=== PATIENT | male | born 1945 | race Caucasian/White ===

== ENCOUNTER → 2016-11-18 | Outpatient (CLI) | payer SELFPAY ==
--- NOTE | 2016-11-19 16:12 | ECHO ---
DATE OF PROCEDURE: 11/18/2016 AGE: 71 GENDER: Male HEIGHT: 72 inches WEIGHT: 205 pounds BODY SURFACE AREA: 2.16 m2 PATIENT LOCATION: Outpatient REFERRING PHYSICIAN: Dorothy Velez INDICATION: Congestive heart failure (CHF). (Unspecified). 2-D MEASUREMENTS: RV: 4.6 cm LV: 5.9 cm Septum: 1.1 cm Posterior wall: 1.1 cm Aortic root: 3.0 cm LA: 4.9 cm LVEF: 10% DOPPLER MEASUREMENTS: AV: 1.06 m/s LVOT: 0.61 m/s LVOT diameter: 2.2 cm MV-E: 102, A: 43, EA ratio: 2.4 Early mitral deceleration time: 151 ms E prime: 3.3, A prime: 4, E/E prime ratio: 35 PV: 0.6 m/s Pulmonary artery acceleration time: 70 ms RVSP: 56-61 mmHg IVC: 3.5 cm COMMENTS: Normal sinus rhythm with frequent isolated PVCs. Subtle interventricular conduction disturbance. Prominently dilated left atrium and at least mild to moderately dilated left ventricle. The right ventricle was at least moderately dilated as was his right atrium. Left ventricle (LV) wall thickness was upper limits of normal. On real-time imaging from the parasternal and apical projections, left ventricular wall motion was markedly hypo- to akinetic. Moderate mitral annular calcification with some thickening of the edges of the mitral leaflets with "low flow" appearance to leaflet motion. No posterior systolic buckling. Three equal size aortic cusps with mildly thickened cusp edges with adequate cusp separation, but premature cusp closure in keeping with reduced forward stroke volume. No apparent intracardiac mass with very small posterior pericardial effusion. Color flow Doppler study taken from the parasternal and apical projections showed trace eccentric aortic and mild eccentric mitral with moderately severe tricuspid insufficiency. Guided continuous wave Doppler of his aortic valve taken from the apical long axis and five chamber projection showed a normal peak systolic velocity against LV outflow tract obstruction. Pulsed and continuous wave Doppler of his LV inflow tract taken from the apical four-chamber projection showed normal diastolic filling velocities against mitral stenosis. There was much more prominent early passive filling pattern associated with an abbreviated early mitral deceleration time in keeping with a restrictive impairment of LV diastolic function. This was further confirmed by pulsed and tissue Doppler of his mitral annulus with estimated mean left atrial pressure of 35 mmHg. Pulsed and continuous wave Doppler of his pulmonary trunk showed a normal peak systolic velocity against RV outflow tract obstruction. His pulmonary artery acceleration time was markedly abbreviated consistent with a significantly increased pulmonary vascular resistance. Guided continuous wave Doppler of his tricuspid valve further allowed our estimation of his right ventricular systolic pressure (at least moderately severe to severely increased). His inferior vena cava was markedly dilated and with absent respiratory collapse in keeping with a central venous pressure of at least 20 mmHg. CONCLUSIONS: Moderately dilated and markedly hypokinetic left ventricle. Moderately dilated left atrium with restrictive impairment of LV diastolic function and prominently elevated mean left atrial pressure. Moderately dilated right heart chambers with Doppler evidence of moderately severe to severe pulmonary hypertension. Prominently dilated inferior vena cava (IVC) with absent respiratory collapse consistent with right heart failure and markedly elevated central venous pressure. Aortic valvular sclerosis without stenosis and only trace insufficiency. Moderate mitral annular calcification and thickening of the mitral leaflets, but no inflow tract obstruction and only mild eccentric insufficiency.
== END ==
LOC: M CARPUL 14:10
PROVIDERS: ATTEND Family Medicine
DX: I50.9 Heart failure, unspecified (principal)

== ENCOUNTER 2016-11-25 09:44 | Inpatient (IN) | payer SELFPAY ==
[~2016-11-25] VITALS: Ht 182.9 cm; Wt 86.6 kg
[2016-11-25] MEDS ORDERED: GLUCAGON FOR INJ 1 MG VIAL (J1610) SC PRN (10:45)
[2016-11-25] MEDS ORDERED: DEXTROSE 50% 50 ML SYRINGE IV PRN (10:45)
[2016-11-25] MEDS ORDERED: GLUCOSE 4 GM CHEW TABLET PO PRN (10:45)
[2016-11-25] MEDS: HumaLOG INSULIN (NovoLOG) PER UNIT SC SCH ×3 (12:00→20:44)
[2016-11-25 12:16] VITALS: BP 114/68
[2016-11-25 12:27] LABS: MEAN CORPUSCULAR HEMOGLOBIN 31.6 pg (27.0-33.0); MEAN CORPUSCULAR HGB CONC 34.3 g/dl (32.0-36.5); MEAN CORPUSCULAR VOLUME 92.1 fl (80.0-96.0); RED CELL DISTRIBUTION WIDTH 14.1 % (11.5-14.5); WHITE BLOOD COUNT 4.2 K/mm3 (4.0-10.0)
[2016-11-25 12:40] LABS: INR 1.07
[2016-11-25] MEDS ORDERED: ASPI1TAB PO (12:42)
[2016-11-25] MEDS ORDERED: LANTINJ4 SC (12:42)
[2016-11-25] MEDS ORDERED: INSUHUMDS SC (12:42)
[2016-11-25] MEDS ORDERED: FURO20TA2 PO (12:42)
[2016-11-25 13:11] LABS: ALBUMIN 3.7 GM/DL (3.2-5.2); ALBUMIN/GLOBULIN RATIO 1.28 (1.00-1.93); ALKALINE PHOSPHATASE 122 U/L (45-117); ALT/SGPT 25 U/L (12-78); ANION GAP 10 MEQ/L (8-16); AST/SGOT 25 U/L (15-37); BILIRUBIN,TOTAL 1.4 MG/DL (0.2-1.0); BLOOD UREA NITROGEN 19 MG/DL (7-18); CALCIUM LEVEL 8.9 MG/DL (8.8-10.2); CARBON DIOXIDE LEVEL 24 MEQ/L (21-32); CHLORIDE LEVEL 105 MEQ/L (98-107); CREATININE FOR GFR 0.82 MG/DL (0.70-1.30); GLOMERULAR FILTRATION RATE > 60.0 (>42); GLUCOSE, FASTING 124 MG/DL (83-110); POTASSIUM SERUM 4.2 MEQ/L (3.5-5.1); SODIUM LEVEL 139 MEQ/L (136-145); TOTAL PROTEIN 6.6 GM/DL (6.4-8.2)
[2016-11-25] MEDS: FUROSEMIDE 40 MG/4 ML VIAL (J1940) IV SCH ×2 (13:36→17:59)
[2016-11-25] MEDS: LISINOPRIL *2.5 MG* TAB PO SCH (13:37)
[2016-11-25] MEDS: ASPIRIN 81 MG ENTERIC TAB PO SCH (13:37)
--- NOTE | 2016-11-25 13:45 | REP ---
Chest x-ray: Two views. History: CHF. Comparison chest x-ray is from October 07, 2016. Findings: Cardiomegaly is again observed unchanged. The aorta is calcific and a little tortuous. Pulmonary vasculature is cephalized. No free pleural effusion is seen but there is some fissural thickening in the minor fissure. Interstitial markings are slightly prominent although improved from the previous study. There are degenerative changes in the thoracic spine. Impression: No focal infiltrate. Cardiomegaly, vascular congestion and fissural thickening consistent with mild CHF. Signed by Froilan Lopez MD 11/25/2016 06:36 P
[2016-11-25] MEDS ORDERED: PREVNAR 13 VACCINE SYRINGE (CPT CODE:90670) IM SCH (14:30)
[2016-11-25] MEDS ORDERED: INFLUENZA VIRUS VACCINE HIGH DOSE 0.5 ML SYRINGE (90662) IM SCH (14:45)
[2016-11-25 16:00] VITALS: BP 115/64
--- NOTE | 2016-11-25 16:18 | CR.PDOC ---
[facility] Cardiology Consultation Date of Consultation 11/25/16 Cadiology Consultation REFERRING PHYSICIAN: Taj Mayes M.D. REASON FOR REFERRAL: Acute on chronic systolic & diastolic heart failure HISTORY OF PRESENT ILLNESS: 71-year-old man with dilated cardiomyopathy, chronic systolic and diastolic heart failure, and frequent PVCs who was admitted today for management of decompensated heart failure. No alcohol. Family history negative for presence of a familial cardiomyopathy. No prior heart attack. No previous cardiac catheterization. He believes he was first diagnosed and placed on treatment for heart failure on or around September-October 2016. Echo-Doppler 11/18/2016 ([facility]) LVEF 10%, LV dilatation (LVed 5.9 cm), severe global hypokinesis. IVS 1.1 cm, PW 1.1 cm Restrictive LV diastolic filling pattern. Moderate LA enlargement 4.9 cm moderately-severe elevated RASP 56-61 mmHg. Moderate RV & RA dilatation. IVC plethora 3.5 cm; increased CVP Mild aortic valve sclerosis; trace AR. Moderate MAC; mild MR. Cardiovascular Symptoms Shortness of breath: Patient reports the onset of exertional shortness of breath approximately one year ago which at first was occurring only with above ordinary physical exertion. He reports that exertional shortness of breath has been progressively worse since September 2016 to the point now of dyspnea with ascending 1 flight of stairs or attempting to walk on the level at anything more than a slow walk. No orthopnea or paroxysmal nocturnal dyspnea. Edema: Patient reports onset of edema in both legs beginning sometime September 2016. No chest, neck, upper extremity, or epigastric pain, pressure, tightness, heaviness, squeezing, or burning with or without exertion. No presyncope or syncope. No palpitations. No embolic events. No claudication. PAST MEDICAL: Dilated Cardiomyopathy Systolic + diastolic heart failure Frequent PVCs Diabetes type 2 SURGICAL HISTORY: Appendectomy. FAMILY HISTORY: Father at 84 years old second ray to [place]. Mother at age 8383 years old. She had diabetes. Sons with tetralogy of [place]ot. 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 No alcohol. Lifetime nonsmoker. No illicit drugs. REVIEW OF SYSTEMS: As per HPI. Nonproductive cough. All other 10 point review of systems questions negative. PHYSICAL EXAMINATION: VITAL SIGNS: Please see below. GENERAL APPEARANCE: - Overweight. Not in any respiratory or psychologic distress. No gross head, facial, or skeletal deformities. EYES: No conjunctival pallor, scleral icterus or xanthelasma. ENT/Mouth: - Edentulous NECK: Jugular Venous Pulsations: 20 cm (to the angle of the jaw with the patient sitting up at 90; presence of CV waves). Trachea midline. No palpable thyroid. EXTREMITIES: No clubbing, nailbed cyanosis, or splinter hemorrhages. SKIN: No skin lesions. No skin pallor or icterus. NEUROLOGIC/PSYCHOLOGIC: Oriented to person, place, and time. Mood and affect normal. Speech normal. MUSCULOSKELETAL: Curvature of the spine normal. Gross motor strength and tone normal. No muscle atrophy, fasciculations, or tremors. - Gait normal. THORAX: Breathing appears unlabored with normal expansion. No dullness to percussion. Normal breath sounds. No crackles, wheezes, or prolonged expiration. HEART: No anterior chest scars or devices. No palpable apex beat. No left parasternal lifts, heaves, or thrills. S1 normal. S2 with increased P2 component. Presence of an S3 gallop and an S4 gallop. No systolic clicks, opening snap, pericardial knock, or pericardial friction rubs No murmurs. ARTERIAL PULSES: Carotids normal in volume and contour and without bruits. No palpable abdominal aorta. Femoral pulses 2+/2 Pedal pulses 2+/2 LOWER EXTREMITY EDEMA: -2-4 mm left & right mid & distal pitting edema. ABDOMEN: Abdomen soft nontender with normal bowel sounds. No abdominal bruits. No hepatomegaly, splenomegaly, or abdominal masses. - Liver span (right midclavicular line): 12 cm - Stool for occult blood not indicated. ALLERGIES: Please see below. HOME MEDICATIONS: Please see below. CURRENT MEDICATIONS: Please see below. Electrocardiogram: ECG 11/25/2016 at 12:40 PM. Sinus rhythm, 88 BPM, first- degree AV block [ID 228 ms], low precordial voltages, poor R-wave progression, left atrial abnormality, moderate nonspecific T-wave abnormalities, consider apical myocardial ischemia. Abnormal ECG. No prior ECG available for comparison. LABORATORY DATA: Please see below. IMAGING: I have independently visualized the patient's PA and lateral chest x-ray 2016 at 1:00 PM. Cardio megaly. Aortic calcification. Mildly tortuous thoracic aorta. Pulmonary vascular redistribution present. No pleural effusions. Increased interstitial markings. Enlarged pulmonary arteries. Some increased thickening of the minor fissure. ASSESSMENT/PLAN: 1. Dilated cardiomyopathy. Echocardiogram 11/18/2016 showed mild dilatation of left ventricle at end diastole (5.9 Jamison) with severe global LV hypokinesis with LVEF estimated to be 10%. Presence of restrictive LV diastolic filling pattern. Presence of moderately severe elevation of RV systolic pressure. Etiology of this patient's dilated cardiomyopathy is not known however the main differential diagnosis would include, but not all inclusive: Nonischemic dilated cardiomyopathy (idiopathic, mono genetic, post viral) versus ischemic cardiomyopathy. No history of alcohol use. No systemic hypertension. No family history of cardiomyopathy. He currently has acute on chronic decompensated systolic & diastolic heart failure (NYHA functional class III). Further complicating the heart failure situation is presence of moderately-severe pulmonary artery hypertension. Renal function is normal. Once this patient is stable as an outpatient, the plan will be to arrange for elective outpatient either diagnostic coronary angiography in [place] or stress SPECT myocardial perfusion imaging; this was explained to the patient. He may very well have associated obstructive sleep apnea &/or central sleep apnea; therefore, I will order nocturnal oximetry while he is an inpatient. Agree with addition of lisinopril. Agree with IV furosemide. I will introduce carvedilol beginning at 3.125 mg twice a day. I will also introduce spironolactone at 25 mg daily. Due to lack of health insurance at this time is unlikely that he will be able to purchase Entresto. Cardiac rehabilitation will be consulted. In addition to a DASH diet I will place him on a 2.5 g sodium restriction, 1800 mL per day oral fluid restriction, & carbohydrate consistent. If this patient is found to have an ischemic dilated cardiomyopathy then he will qualify for a single chamber ICD. If he is found to have a nonischemic dilated cardiopathy, then he will qualify for a single chamber ICD if LVEF remains at or below 35% and he remains NYHA functional class 2-3 after 3 months of maximal CHF therapy. 2. Heart failure (systolic & diastolic, acute on chronic. As per problem #1. 3. Frequent PVCs. No palpitations. Potassium normal. Serum magnesium will be ordered. 4. First-degree AV block (mild). Will continue to observe on telemetry as he is placed on a beta melvin. 5. Abnormal ECG. ECG as described above. 6. Secondary probably artery hypertension. Most likely secondary to left heart failure. He may have obstructive sleep apnea and/or central sleep apnea. Nocturnal oximetry will be obtained while he is in hospital. Thank you kindly for asking me to participate in the care of your patient. Vital Signs/I&O Height (in): 72 Weight (kg): 90.5 BMI (kg): 27.1 Laboratory Data Labs 24H Laboratory Tests 2 11/25/16 12:07: Bedside Glucose (Misc Panel) 136H 11/25/16 12:16: Activated Partial Thromboplast Time 31.6, B-Type Natriuretic Peptide 2070H, Prothromb Time International Ratio 1.07, Prothrombin Time 14.0 CBC/BMP Laboratory Tests 11/25/16 12:16 Red Blood Count 4.62, Mean Corpuscular Volume 92.1, Mean Corpuscular Hemoglobin 31.6, Mean Corpuscular Hemoglobin Concent 34.3, Red Cell Distribution Width 14.1 FSBS Laboratory Tests Test 11/25/16 12:07 Range/Units Bedside Glucose (Misc Panel) 136 83-110 MG/DL Microbiology Microbiology 11/25/16 MRSA Screen, Received Pending Home Medications Scheduled Aspirin (Aspirin 81) 81 Mg Tab 81 MG PO QPM (Reported) Furosemide (Furosemide) 20 Mg Tab 20 MG PO QPM (Reported) Insulin Glargine (Lantus Solostar) 100 Unit/Ml Inj 20 UNITS SC QHS (Reported) SEE COMMENT Insulin Human Lispro (Humalog) 1 Units/0.01 Ml Inj 0 SC AC (Reported) PER SLIDING SCALE Current Medications Current Medications Aspirin (Ecotrin) 81 mg QAM PO ; Start 11/25/16 at 09:00; Stop 12/25/16 at 08:59 Dextrose (Dextrose 50%) 25 ml ASDIRECTED PRN IV SEE LABEL COMMENTS; Start 11/25 at 10:45; Stop 12/25/16 at 10:44 Enoxaparin Sodium (Lovenox) 40 mg DAILY SC ; Start 11/26/16 at 09:00; Stop 12/01 at 08:59; Status UNV Furosemide (Lasix) 40 mg Q6H IV ; Start 11/25/16 at 12:00; Stop 12/25/16 at 11: 59 Glucagon (Glucagon) 1 mg ASDIRECTED PRN SC SEE LABEL COMMENTS; Start 11/25/16 at 10:45; Stop 12/25/16 at 10:44 Glucose (Glucose) 16 GM ASDIRECTED PRN PO SEE LABEL COMMENTS; Start 11/25/16 at 10:45; Stop 12/25/16 at 10:44 Home Med (Med Rec Complete!) ASDIRECTED XX ; Start 11/25/16 at 12:45; Stop at 12:47; Status DC Insulin Detemir (Levemir Insulin) 10 units QHS SC ; Start 11/25/16 at 21:00; Stop 12/25/16 at 20:59 Insulin Human Lispro (HumaLOG INSULIN) SEE PROTOCOL TABLE AC SC ; Start at 12:00; Stop 12/25/16 at 11:59 Insulin Human Lispro (HumaLOG INSULIN) SEE PROTOCOL TABLE QHS SC ; Start at 21:00; Stop 12/25/16 at 20:59 Lisinopril (Prinivil) 2.5 mg QAM PO ; Start 11/25/16 at 09:00; Stop 12/25/16 at 08:59 Allergies Allergies: Coded Allergies: Statins (Unverified Allergy, Unknown, CRAMPS, 11/25/16) Ever Ambrosio Nov 25, 2016 13:27
[2016-11-25 17:14] LABS: MAGNESIUM LEVEL 1.9 MG/DL (1.8-2.4)
[2016-11-25] MEDS: ENOXAPARIN 40 MG/0.4 ML SYRINGE (J1650) SC SCH (17:59)
[2016-11-25] MEDS: SPIRONOLACTONE 25 MG TAB PO SCH (17:59)
--- NOTE | 2016-11-25 18:51 | ECGEPIP ---
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 LEFT VENTRICULAR HYPERTROPHY LOW QRS VOLTAGE IN EXTREMITY LEADS MODERATE T-WAVE ABNORMALITY, CONSIDER LATERAL ISCHEMIA NO PRIOR TRACING IN THE SYSTEM Electronically Signed On 11-25-2016 18:51:01 EST by Alan Wang
[2016-11-25 20:00] VITALS: BP 113/68
[2016-11-25] MEDS: LEVEMIR (INSULIN DETEMIR) 1 UNITS/0.01ML SC SCH (20:56)
[2016-11-25] MEDS: CARVedilol 3.125 MG TAB PO SCH (20:57)
[2016-11-26] VITALS: BP 100/60
[2016-11-26] MEDS: FUROSEMIDE 40 MG/4 ML VIAL (J1940) IV SCH ×2 (00:18→05:28)
[2016-11-26 04:00] VITALS: BP 109/61
[2016-11-26 04:55] LABS: MEAN CORPUSCULAR HEMOGLOBIN 30.9 pg (27.0-33.0); MEAN CORPUSCULAR HGB CONC 32.9 g/dl (32.0-36.5); MEAN CORPUSCULAR VOLUME 93.8 fl (80.0-96.0); RED CELL DISTRIBUTION WIDTH 15.1 % (11.5-14.5); WHITE BLOOD COUNT 4.1 K/mm3 (4.0-10.0)
[2016-11-26 05:14] LABS: ANION GAP 8 MEQ/L (8-16); BLOOD UREA NITROGEN 18 MG/DL (7-18); CALCIUM LEVEL 8.9 MG/DL (8.8-10.2); CARBON DIOXIDE LEVEL 30 MEQ/L (21-32); CHLORIDE LEVEL 102 MEQ/L (98-107); CREATININE FOR GFR 0.89 MG/DL (0.70-1.30); GLOMERULAR FILTRATION RATE > 60.0 (>42); GLUCOSE, FASTING 87 MG/DL (83-110); SODIUM LEVEL 140 MEQ/L (136-145)
[2016-11-26] MEDS: HumaLOG INSULIN (NovoLOG) PER UNIT SC SCH ×4 (07:30→20:09)
[2016-11-26 08:00] VITALS: BP 103/60
[2016-11-26] MEDS: ASPIRIN 81 MG ENTERIC TAB PO SCH (08:29)
[2016-11-26] MEDS: CARVedilol 3.125 MG TAB PO SCH ×2 (08:29→21:05)
[2016-11-26] MEDS: LISINOPRIL *2.5 MG* TAB PO SCH (08:29)
[2016-11-26] MEDS: SPIRONOLACTONE 25 MG TAB PO SCH (08:30)
[2016-11-26] MEDS ORDERED: FUROSEMIDE 40 MG TAB PO SCH (09:00)
--- NOTE | 2016-11-26 09:53 | IPNPDOC ---
Assessment/Plan Date Seen The patient was seen on 11/26/16. Problems Problems: (1) Systolic CHF, acute on chronic Status: Acute Response to Treatment: Improving Discussed With: Patient Problem Specific Plan: Consult Specialist, Monitor Clinically, Repeat Labs Problem Text: Pt appears to be improving. Will change from IV lasix to po, he is on aldactone 25 mg as well. NATASHA low dose. Will obtain PT eval, plan for d/ c in AM. (2) DM2 (diabetes mellitus, type 2) Status: Chronic Response to Treatment: Stable Problem Specific Plan: Monitor Clinically Problem Text: Cont home meds. Plan / VTE VTE Prophylaxis Ordered?: Yes Subjective Review of Systems CC/HPI Pt is feeling better this morning, although he state that he hasn't really done much and he was relatively asymptomatic at rest previuosly General: Denies: Fatigue Constitutional: Denies: Chills, Fever ENT: Denies: Head Aches Pulmonary: Denies: Cough, Dyspnea Cardiovascular: Denies: Chest Pain, Palpitations Gastrointestinal: Denies: Diarrhea, Nausea, Vomiting Neurological: Denies: Weakness Psych: Reports: Mood Normal Objective Physical Examination General Exam: Positive: Alert, No Acute Distress ENT Exam: Positive: Mucous membr. moist/pink Neck Exam: Positive: Supple Chest Exam: Positive: Normal air movement, Other (few bibasilar crackles) Heart Exam: Positive: Normal S1, Normal S2, Rate Normal Abdomen Exam: Positive: Normal bowel sounds, Soft, Negative: Tenderness Extremity Exam: Negative: Edema Vital Signs/I&O Vital Signs Date Time Temp Pulse Resp B/P Pulse Ox O2 Delivery O2 Flow Rate FiO2 11/26/16 08:00 96.7 64 18 103/60 95 Room Air I&O- Last 24 Hours up to 6 AM 11/26/16 06:00 Intake Total 780 ml Output Total 4750 ml Balance -3970 ml Laboratory Data Labs 24H Laboratory Tests 2 11/25/16 12:07: Bedside Glucose (Misc Panel) 136H 11/25/16 12:16: Activated Partial Thromboplast Time 31.6, Blood Urea Nitrogen 19H, Creatinine 0.82, Sodium Level 139, Potassium Level 4.2, Chloride Level 105, Carbon Dioxide Level 24, Calcium Level 8.9, Aspartate Amino Transf (AST/SGOT) 25, Alanine Aminotransferase (ALT/SGPT) 25, Alkaline Phosphatase 122H, Total Bilirubin 1.4H , Total Protein 6.6, Albumin 3.7, Albumin/Globulin Ratio 1.28, Anion Gap 10, B- Type Natriuretic Peptide 2070H, Glomerular Filtration Rate > 60.0, Magnesium Level 1.9, Prothromb Time International Ratio 1.07, Prothrombin Time 14.0, Thyroid Stimulating Hormone (TSH) 2.240 11/25/16 16:47: Bedside Glucose (Misc Panel) 157H 11/25/16 20:28: Bedside Glucose (Misc Panel) 119H 11/26/16 04:36: Anion Gap 8, Blood Urea Nitrogen 18, Creatinine 0.89, Sodium Level 140, Potassium Level 4.0, Chloride Level 102, Carbon Dioxide Level 30, Calcium Level 8.9, Glomerular Filtration Rate > 60.0 11/26/16 08:06: Bedside Glucose (Misc Panel) 87 CBC/BMP Laboratory Tests 11/25/16 12:16 Calcium Level 8.9, Aspartate Amino Transf (AST/SGOT) 25, Alanine Aminotransferase (ALT/SGPT) 25, Alkaline Phosphatase 122 H, Total Bilirubin 1.4 H, Total Protein 6.6, Albumin 3.7, Red Blood Count 4.62, Mean Corpuscular Volume 92.1, Mean Corpuscular Hemoglobin 31.6, Mean Corpuscular Hemoglobin Concent 34.3, Red Cell Distribution Width 14.1 11/26/16 04:36 Calcium Level 8.9, Red Blood Count 4.79, Mean Corpuscular Volume 93.8, Mean Corpuscular Hemoglobin 30.9, Mean Corpuscular Hemoglobin Concent 32.9, Red Cell Distribution Width 15.1 H FSBS Laboratory Tests Test 11/25/16 12:07 11/25/16 16:47 11/25/16 20:28 11/26/16 08:06 Range/Units Bedside Glucose (Misc Panel) 136 157 119 87 83-110 MG/DL Microbiology Microbiology 11/25/16 MRSA Screen, Received Pending ASTER CORONA PA-C Nov 26, 2016 09:53
[2016-11-26 13:20] VITALS: BP 105/63
[2016-11-26 14:00] VITALS: BP 122/62
--- NOTE | 2016-11-26 15:15 | IPN ---
DATE: 11/26/2016 TIME OF SERVICE: 2:50 p.m. SUBJECTIVE: The patient reports he has been able to ambulate in the hallways without any dyspnea walking at a normal pace. No orthopnea or paroxysmal nocturnal dyspnea (PND). He reports his leg swelling, although still present, has gone down considerably since admission. No chest pain or chest discomfort with or without activity. No palpitations. No lightheadedness or dizziness. He reports feeling well and has no additional voiced complaints. PHYSICAL EXAMINATION: Weight 86.6 kg. Temperature 96.0, pulse 78 (regular), respiratory rate 18, blood pressure 122/62, oxygen saturation 94% on room air. Input and output for the available observation time from 11/25/2016 shows the patient to be net negative 1510 mL. So far today the patient is strongly net negative. Jugular venous pulsations were at 8 cm. First and second heart sounds showed accentuated P2, faint S3, no S4. No murmurs appreciated. Respiratory expansion and effort was good. No crackles or wheezes. Abdomen was soft, nontender with normal bowel sounds. 1+ to 2+ pitting edema was present at mid and distal tibial level bilaterally. Speech was normal. Mood and affect were normal. LABORATORY DATA: 11/26/2016, showed sodium 140, potassium 4.0, chloride 102, CO2 30, creatinine 0.89, BUN 18, estimated GFR greater than 60. ASSESSMENT AND PLAN: 1. Dilated cardiomyopathy. Planned for elective stress SPECT myocardial perfusion imaging study or diagnostic coronary angiography as an outpatient to differentiate between nonischemic cardiomyopathy versus ischemic cardiomyopathy. With regard to consideration of a single chamber implantable cardioverter defibrillator (ICD), this will depend on whether or not he has an ischemic or nonischemic cardiomyopathy. This is discussed in detail in my consult. Heart failure management as described below. 2. Heart failure (systolic and diastolic), acute on chronic. Patient is currently [place] Heart Association (NYHA) Functional Class II. He is mildly decompensated and has improved tremendously since admission. His blood pressure is controlled. His renal function remains normal and he is generating an excellent net negative fluid balance. He was switched from intravenous (IV) furosemide to oral furosemide 40 mg once daily today. At this point I recommend switching his furosemide 40 mg once daily to torsemide 20 mg daily because this has a longer half-life and has consistent 100% bioavailability and less issues with endocardial fibrosis in comparison to furosemide. Continue carvedilol 3.125 mg twice a day, lisinopril 2.5 mg daily, spironolactone 25 mg daily. 3. Premature ventricular contractions (PVCs). Potassium and magnesium levels normal. Asymptomatic. 4. First degree atrioventricular (AV) block. Stable. 5. Abnormally ECG. Stable. 6. Secondary pulmonary hypertension. Right heart failure is improving. Continue heart failure management as above. Awaiting results of nocturnal oximetry which has been ordered.
[2016-11-26] MEDS: ENOXAPARIN 40 MG/0.4 ML SYRINGE (J1650) SC SCH (18:49)
[2016-11-26] MEDS: LEVEMIR (INSULIN DETEMIR) 1 UNITS/0.01ML SC SCH (21:10)
--- NOTE | 2016-11-26 21:47 | NOCOX ---
DATE OF PROCEDURE: 11/25/2015 INTERPRETATION: Recording nocturnal oximetry was performed on room air. A total of 6 hours and 29 minutes of data was reviewed. Mean oxygen saturation for this study was 94% with a minimum recorded value of 86%. He spent 4.8% of this time with saturations less than 90% but only 1% of his time with saturations less than 88%. His longest continuous time with saturations less than or equal to 88% was 2 minutes and 58 seconds. In reviewing the flow waveform, there is significant fluctuations suggestive of sleep disordered breathing. IMPRESSION: 1. Acceptable nocturnal saturation on room air. 2. SpO2 fluctuations suggestive of sleep disordered breathing. Clinical correlation will be necessary.
[2016-11-26 22:00] VITALS: BP 97/56
[2016-11-27 06:00] VITALS: BP 107/63
[2016-11-27 06:44] LABS: MEAN CORPUSCULAR HEMOGLOBIN 30.8 pg (27.0-33.0); MEAN CORPUSCULAR HGB CONC 33.7 g/dl (32.0-36.5); MEAN CORPUSCULAR VOLUME 91.4 fl (80.0-96.0); RED CELL DISTRIBUTION WIDTH 14.8 % (11.5-14.5); WHITE BLOOD COUNT 3.5 K/mm3 (4.0-10.0)
[2016-11-27 06:58] LABS: ANION GAP 9 MEQ/L (8-16); BLOOD UREA NITROGEN 25 MG/DL (7-18); CALCIUM LEVEL 9.1 MG/DL (8.8-10.2); CARBON DIOXIDE LEVEL 29 MEQ/L (21-32); CHLORIDE LEVEL 103 MEQ/L (98-107); CREATININE FOR GFR 0.87 MG/DL (0.70-1.30); GLOMERULAR FILTRATION RATE > 60.0 (>42); GLUCOSE, FASTING 71 MG/DL (83-110); POTASSIUM SERUM 4.1 MEQ/L (3.5-5.1); SODIUM LEVEL 141 MEQ/L (136-145)
[2016-11-27] MEDS: HumaLOG INSULIN (NovoLOG) PER UNIT SC SCH ×2 (07:30→12:00)
[2016-11-27 08:47] VITALS: BP 107/63
[2016-11-27] MEDS: ASPIRIN 81 MG ENTERIC TAB PO SCH (08:47)
[2016-11-27] MEDS: LISINOPRIL *2.5 MG* TAB PO SCH (08:47)
[2016-11-27] MEDS: SPIRONOLACTONE 25 MG TAB PO SCH (08:47)
[2016-11-27] MEDS: CARVedilol 3.125 MG TAB PO SCH (08:47)
[2016-11-27] MEDS ORDERED: TORSEMIDE 20 MG TAB PO SCH (09:00)
[2016-11-27] MEDS ORDERED: CARV3.12 PO (11:50)
[2016-11-27] MEDS ORDERED: ALDA25TA2 PO (11:50)
[2016-11-27] MEDS ORDERED: DEMA20TA6 PO (11:50)
[2016-11-27] MEDS ORDERED: LISI25TA PO (11:50)
--- NOTE | 2016-11-27 16:26 | DSES ---
DATE OF ADMISSION: 11/25/2016 DATE OF DISCHARGE: 11/27/2016 PRIMARY CARE PHYSICIAN: Anita Mayes HISTORY: This is a 71-year-old male patient of Anita Pittman who was admitted secondary to increasing dyspnea on exertion with bilateral lower extremity edema. He had an echocardiogram one the week prior with severe systolic congestive heart failure with an ejection fraction (EF) of 10%. He has a history of hypertension but had declined treatment in the past. He followed a [id number] diet at home. During his hospitalization he has remained medically stable. He adequately diuresed with intravenous (IV) Lasix for a total output of 4 liters during his hospitalization. His renal function remained stable. Dr. Ambrosio was consulted. He started the patient on 2.5 mg of lisinopril, Coreg 3.125 mg. I had transitioned the patient from IV Lasix to oral Lasix. He discontinued this and changed him to Demadex 20 mg daily. He also initiated spironolactone 25 mg daily. At this time, the patient feels eager to return home. His symptoms have resolved. His is at bedside. She feels comfortable with him returning home. He has been ambulating in the halls. His BNP has gone from 0 to 1000. DISCHARGE DIAGNOSES: 1. Acute on chronic systolic congestive heart failure with an ejection fraction of 10%. 2. Dilated cardiomyopathy. 3. Diabetes mellitus, type 2. DISCHARGE MEDICATIONS: - Coreg 3.125 mg by mouth by mouth twice a day - lisinopril 2.5 mg by mouth daily - spironolactone 25 mg by mouth daily - torsemide 20 mg by mouth daily - aspirin 81 mg by mouth daily - Lantus 20 units by mouth at bedtime DISCHARGE PLAN: Followup with Dr. Ambrosio in 1 week. Followup with Anita Mayes in 1 week. Activity should be as tolerated. Diet should be no added salt, 1800 mL fluid restriction.
== END 2016-11-27 13:09 | disposition home or self-care (01) | DRG 194 ==
LOC: M ICU 11:47 → M MSPAV 11-26 13:15
PROVIDERS: ADMIT Family Medicine; ATTEND Family Medicine
DX: I50.23 Acute on chronic systolic (congestive) heart failure (principal); I44.1 Atrioventricular block, second degree; I27.2 Other secondary pulmonary hypertension; E11.9 Type 2 diabetes mellitus without complications; I25.5 Ischemic cardiomyopathy; Z79.899 Other long term (current) drug therapy; Z79.82 Long term (current) use of aspirin

== ENCOUNTER → 2016-12-02 | Outpatient (REF) | payer OTHER ==
[~2016-12-02] MED LIST: ALDA25TA2 PO; ASPI1TAB PO; CARV3.12 PO; DEMA20TA6 PO; FURO20TA2 PO; INSUHUMDS SC; LANTINJ4 SC; LISI25TA PO
[2016-12-02 12:38] LABS: MEAN CORPUSCULAR HEMOGLOBIN 30.4 pg (27.0-33.0); MEAN CORPUSCULAR HGB CONC 33.4 g/dl (32.0-36.5); RED CELL DISTRIBUTION WIDTH 13.6 % (11.5-14.5); WHITE BLOOD COUNT 4.4 K/mm3 (4.0-10.0)
[2016-12-02 12:57] LABS: ANION GAP 8 MEQ/L (8-16); BLOOD UREA NITROGEN 33 MG/DL (7-18); CALCIUM LEVEL 9.3 MG/DL (8.8-10.2); CARBON DIOXIDE LEVEL 29 MEQ/L (21-32); CHLORIDE LEVEL 100 MEQ/L (98-107); CREATININE FOR GFR 0.99 MG/DL (0.70-1.30); GLOMERULAR FILTRATION RATE > 60.0 (>42); GLUCOSE, FASTING 72 MG/DL (83-110); POTASSIUM SERUM 4.5 MEQ/L (3.5-5.1); SODIUM LEVEL 137 MEQ/L (136-145)
== END ==
LOC: M SFHCADAM 09:05
PROVIDERS: ATTEND Family Medicine
DX: I50.20 Unspecified systolic (congestive) heart failure (principal)

== ENCOUNTER 2016-12-11 08:32 | Emergency (ER) | payer OTHER, SELFPAY ==
[2016-12-11] MEDS ORDERED: ASPIRIN 81 MG CHEW TABLET As Ordered ONE (08:57)
[2016-12-11 09:02] LABS: INR 1.03
[2016-12-11 09:17] LABS: EOS # 0.3 K/mm3 (0.0-0.50); EOS % 5.9 % (0.0-3.0); LARGE UNSTAINED CELL # 0.2 K/mm3 (0.0-0.4); LARGE UNSTAINED CELL % 4.6 % (0.0-4.0); LYMPH # 1.4 K/mm3 (1.5-4.5); LYMPH % 31.5 % (24.0-44.0); MEAN CORPUSCULAR HEMOGLOBIN 29.6 pg (27.0-33.0); MEAN CORPUSCULAR HGB CONC 32.1 g/dl (32.0-36.5); MEAN CORPUSCULAR VOLUME 92.1 fl (80.0-96.0); MONO # 0.3 K/mm3 (0.0-0.8); MONO % 7.5 % (0.0-5.0); NEUTROPHILS # 2.2 K/mm3 (1.8-7.7); NEUTROPHILS % 49.5 % (36.0-66.0); PLATELET COUNT, AUTOMATED 136 k/mm3 (150-450); RED CELL DISTRIBUTION WIDTH 13.1 % (11.5-14.5); WHITE BLOOD COUNT 4.4 K/mm3 (4.0-10.0)
[2016-12-11 09:21] LABS: ANION GAP 10 MEQ/L (8-16); BLOOD UREA NITROGEN 38 MG/DL (7-18); CALCIUM LEVEL 9.5 MG/DL (8.8-10.2); CARBON DIOXIDE LEVEL 28 MEQ/L (21-32); CHLORIDE LEVEL 96 MEQ/L (98-107); CREATININE FOR GFR 1.13 MG/DL (0.70-1.30); GLOMERULAR FILTRATION RATE > 60.0 (>42); GLUCOSE, FASTING 352 MG/DL (83-110); POTASSIUM SERUM 4.9 MEQ/L (3.5-5.1); SODIUM LEVEL 134 MEQ/L (136-145)
--- NOTE | 2016-12-11 09:34 | REP ---
Chest x-ray: Sitting AP view portably obtained. History: Chest pain. Comparison study November 25, 2016. Findings: There is moderate cardiomegaly. A diffuse interstitial pulmonary edema pattern is seen. There is fissural thickening in the minor fissure. No free pleural effusion is appreciated. No focal infiltrate is seen. The aorta is tortuous. There are degenerative changes in the thoracic spine. Impression: CHF pattern with moderate interstitial pulmonary edema. Signed by Froilan Lopez MD 12/11/2016 10:24 A
[2016-12-11] MEDS ORDERED: ISOVUE-370 76% 100ML VIAL (Q9967) As Ordered ONE (10:35)
[2016-12-11 11:59] LABS: MAGNESIUM LEVEL 2.1 MG/DL (1.8-2.4); PHOSPHORUS LEVEL 2.3 MG/DL (2.5-4.9)
--- NOTE | 2016-12-11 12:29 | REP ---
CT PULMONARY ANGIOGRAM, WITH IV CONTRAST HISTORY: Chest pain. COMPARISON STUDIES: Comparison is made with today's chest x-ray. No prior CTs. CONTRAST DOSE: 75 mL of Isovue-[address] TECHNIQUE: Helical scanning is acquired and overlapping 1.5 mm and contiguous 3 mm axial images are reformatted. In addition, a 3D work station is deployed to generate thick slab maximum intensity projection images in sagittal and coronal imaging projections. I am informed by the technologist that there was a brief delay in scan initiation after contrast, due to technical difficulty. CT PULMONARY ANGIOGRAPHIC FINDINGS: There is fair opacification of the pulmonary arterial tree. There is no CT evidence of pulmonary embolism. The study is felt to be diagnostic. There is also excellent opacification of the thoracic aorta which enhances homogeneously and is normal in caliber. Vascular calcification is noted. There is left coronary artery and right coronary artery vascular calcification as well. Cardiomegaly is observed. There is a small quantity of right pleural fluid. There are granulomatous calcifications in the right middle lobe. Granulomatous lymph node calcifications are seen in the subcarinal region. There are scattered right hilar and pretracheal lymph nodes. The largest of these is a triangular-shaped lymph node in the precarinal region measuring 1.5 x 1.4 cm. A granulomatous lymph node calcification is seen in the left hilus is well. There is a left lower lobe pulmonary granuloma. Some fissural thickening is seen in the major fissure on the right. There is interstitial edema pattern in the bases, right more so than left with Sushma B lines. No pulmonary mass lesion is seen. The visualized upper abdominal structures are unremarkable. No bony destructive lesion is seen. IMPRESSION: 1. No CT evidence of pulmonary embolism. 2. Cardiomegaly, small right pleural effusion, and mild interstitial edema pattern consistent with CHF. 3. Coronary artery vascular calcification. 4. Old granulomatous calcific residuals. 5. No other significant abnormality. Signed by Froilan Lopez MD 12/11/2016 12:53 P
[2016-12-11] MEDS ORDERED: CLOPIDOGREL 300 MG TAB (PLAVIX) As Ordered ONE (12:39)
[2016-12-11] MEDS ORDERED: HEPARIN SOD (PORCINE) 5000 UNITS/ML VIAL As Ordered ONE (12:39)
[2016-12-11] MEDS ORDERED: HEPARIN 25,000 UNITS/250 ML D5W BAG (100 UNITS/ML) As Ordered ONE (12:40)
--- NOTE | 2016-12-11 13:16 | EDDOCDS ---
Physician Documentation [facility] Name: García Peres Age: 71 yrs Sex: Male : 1945 Arrival Date: 12/11/2016 Time: 08:32 Bed 15 Private MD: Taj Mayes MD Disposition: 12/11/16 12:20 Transfer ordered to [facility]. Diagnosis are Non-ST elevation (NSTEMI) myocardial infarction, Chest pain, unspecified. - Reason for transfer: Higher level of care. - Accepting physician is Dr. Ching. - Condition is Critical. - Problem is new. - Symptoms are unchanged. Historical: - Allergies: no known allergies; - Home Meds: 1. torsemide Unknown oral 2. spironolactone Unknown Oral 3. carvedilol Unknown oral 4. Prinivil Unknown Oral 5. metoprolol tartrate Unknown Oral has not started yet* - PMHx: CHF; Hypertension; - PSHx: Appendectomy; - Social history: Smoking status: Patient states was never smoker of tobacco. No barriers to communication noted, The patient speaks fluent Togolese, Speaks appropriately for age. - Family history: Not pertinent. - : The pt / caregiver states he / she is not on anticoagulants. Home medication list is obtained from family members. - Exposure Risk Screening:: None identified. Vital Signs: 12/11 08:44 BP 131 / 87; Pulse 107; Resp 20; Temp 97.2(TE); Pulse Ox 93% on R/A; Weight 83.91 kg / ct3 184.99 lbs (M); Height 6 ft. 0 in. (182.88 cm) (R); 08:56 BP 124 / 90 (auto/); 13 08:56 Pulse 102 MON; Resp 16; Pulse Ox 94% on R/A; 13 09:11 BP 126 / 87 (auto/); 13 09:11 Pulse 102 MON; Resp 16; Pulse Ox 96% on R/A; 09:26 BP 125 / 89 (auto/); 13 09:26 Pulse 102 MON; Resp 16; Pulse Ox 94% on R/A; 09:41 BP 121 / 86 (auto/); 13 09:41 Pulse 102 MON; Resp 16; Pulse Ox 95% on R/A; js13 09:56 BP 107 / 90 (auto/); js13 09:56 Pulse 98 MON; Resp 16; Pulse Ox 95% on R/A; js13 10:11 BP 97 / 69 (auto/); js13 10:11 Pulse 98 MON; Resp 16; Pulse Ox 96% on R/A; js13 10:26 BP 111 / 61 (auto/); js13 10:26 Pulse 96 MON; Resp 16; Pulse Ox 96% on R/A; js13 10:41 BP 108 / 64 (auto/); js13 10:41 Pulse 92 MON; Resp 16; Pulse Ox 97% on R/A; js13 10:56 BP 114 / 69 (auto/); js13 10:56 Pulse 86 MON; Resp 16; Pulse Ox 98% on R/A; js13 11:11 Pulse 82 MON; Pulse Ox 95% ; cjh 11:11 BP 108 / 62 (auto/); cjh 11:25 Pulse 88 MON; Pulse Ox 96% ; cjh 11:26 BP 115 / 77 (auto/); cjh 11:40 Pulse 84 MON; Pulse Ox 95% ; cjh 11:41 BP 110 / 68 (auto/); cjh 11:55 Pulse 82 MON; Pulse Ox 96% ; cjh 11:56 BP 127 / 62 (auto/); cjh 12:10 Pulse 76 MON; Pulse Ox 96% ; cjh 12:11 BP 111 / 63 (auto/); cjh 12:25 Pulse 70 MON; Pulse Ox 97% ; cjh 12:26 BP 93 / 52 (auto/); cjh 12:40 Pulse 86 MON; Pulse Ox 95% ; cjh 12:41 BP 119 / 79 (auto/); cjh 12:52 Pulse 90 MON; Pulse Ox 96% ; cjh 12:53 BP 125 / 71 (auto/); cjh 12:55 Pulse 78 MON; Pulse Ox 95% ; cjh 12:56 BP 96 / 68 (auto/); cjh 13:07 Pulse 82 MON; Pulse Ox 96% ; cjh 13:07 BP 165 / 63 (auto/); cjh 13:11 BP 165 / 63; Pulse 83; Resp 18; Temp 97.3(TE); Pulse Ox 99% ; cjh 08:44 Body Mass Index 25.09 (83.91 kg, 182.88 cm) ct3 MDM: 08:37 ECG WITH READING ER PHYS+CARDIAG ordered. EDMS 08:42 Aspirin Chewable Tablet 324 mg PO once ordered. fg 08:42 Fretted Instrument Maker Hand/Pulse Ox/q 30 min VS ordered. fg 08:42 IV Saline Lock ordered. fg 08:42 Rhythm Strip to chart ordered. fg 08:42 Undress patient appropriately for examination ordered. fg 08:43 B-Type Natiuretic Peptide Ordered. EDMS 08:43 Basic Metabolic Profile Ordered. EDMS 08:43 CBC with Diff Ordered. EDMS 08:43 Cardiac Injury Profile Ordered. EDMS 08:43 Prothrombin Time Profile\E\INR Ordered. EDMS 08:43 Troponin Ordered. EDMS 08:44 portable chest Ordered. EDMS 09:22 Financial registration complete. lg 09:22 [facility] Payment Agreement was scanned into [employer] and attached to record. lg 10:17 Repeat EKG (put time details section) ordered. fg 10:18 Cardiac Marker Panel: 1130 Ordered. EDMS 10:18 Troponin: 1[address] Ordered. EDMS 10:18 CT Chest Angio R/O PE Ordered. EDMS 10:25 Repeat EKG (put time details section) complete. lbd 10:29 ECG WITH READING ER PHYS ordered. EDMS 11:35 ECG WITH READING ER PHYS+CARDIAG ordered. EDMS 11:45 MAGNESIUM LEVEL Ordered. EDMS 11:45 PHOSPHOROUS LEVEL Ordered. EDMS 12:24 Nitro-Bid Ointment 2 % 0.5 inches Transdermal once ordered. fg 12:24 Plavix - Clopidogrel 300 mg PO once ordered. fg 12:24 heparin (Thrombolytic Protocol, 12 units/kg/hr)) 53454 units IV at 12 units/kg/hr once; fg Max. dose 1000units/hr. 990 units/hour ordered. 12:24 heparin (Thrombolytic Protocol, 60 units/kg)) 60 units/kg IVP once; max 4000 units. fg 400o units ordered. Administered Medications: 09:04 Drug: Aspirin 324 mg [aspirin 81 mg chewable tablet (4 tabs)] Route: PO; js13 12:59 Drug: heparin (Thrombolytic Protocol, 12 units/kg/hr)) 07017 units {[facility]adeo [facility] RN[facility]} Route: IV; Rate: 12 units/kg/hr; Site: left antecubital; 12:59 Drug: heparin (Thrombolytic Protocol, 60 units/kg)) 5034.6 units {Co-Signature: ml6 [facility] (Amadeo Pearson RN).} Route: IVP; Site: left antecubital; 13:00 Drug: Plavix - Clopidogrel 300 mg [clopidogrel 75 mg tablet (4 tabs)] Route: PO; [facility] Signatures: Dispatcher [employer] EDMS Rosibel Ayala, Test Case Developer Unit lbd Astrid Salter, Reg Reg lg Jessica Mandujano RN RN hs1 Rea Diane,RN RN js13 Meli FloresRN RN [facility] Karla Walker MD MD Amadeo Pearson RN ml6 The chart was reviewed and I authenticate all verbal orders and agree with the evaluation and treatment provided.Corrections: (The following items were deleted from the chart) 11:46 11:35 MAGNESIUM LEVEL+LAB ordered. EDMS EDMS 11:46 11:35 PHOSPHOROUS LEVEL+LAB ordered. EDMS EDMS Attachments: 09:22 [facility] Payment Agreement lg MTDD
--- NOTE | 2016-12-11 13:17 | EDDOCDS ---
Nurse's Notes [facility] Name: García Peres Age: 71 yrs Sex: Male : 1945 Arrival Date: 12/11/2016 Time: 08:32 Bed 15 Private MD: Taj Mayes MD Diagnosis: Non-ST elevation (NSTEMI) myocardial infarction;Chest pain, unspecified Presentation: 12/11 08:35 Presenting complaint: Patient states: chest pain started approx 1 hour ago. Patient hs1 states has not felt like this before. Patient states pain radiated toward left arm. Aspirin was not taken prior to arrival. Adult Sepsis Screening: The patient does not have new or worsening altered mentation. Patient's respiratory rate is less than 22. Systolic blood pressure is greater than 100. Patient has a qSOFA score of 0- Negative Sepsis Screen. Suicide/Homicide risk assessment- the patient denies having any suicidal and/or homicidal ideations and does not present with any other emotional, behavioral or mental health complaints. Status: Patient is not a services host or dependent. Transition of care: patient was not received from another setting of care. 08:35 Acuity: FANNY Level 2 hs1 08:35 Method Of Arrival: Walkin/Carried/Asstd hs1 08:35 Red Flag criteria, patient assessed and taken directly to a bed. hs1 Triage Assessment: 08:48 General: Appears in no apparent distress, Behavior is appropriate for age, cooperative. js13 Pain: Denies pain. Cardiovascular: Chest pain is described as mild, radiates to left scapula episodes are continuous began 2 hours prior to arrival. 09:00 Respiratory: Airway is patent Respiratory effort is even, unlabored, Breath sounds are js13 clear Reports cough that is non-productive. Derm: Skin is pink, warm & dry. Historical: - Allergies: no known allergies; - Home Meds: 1. torsemide Unknown oral 2. spironolactone Unknown Oral 3. carvedilol Unknown oral 4. Prinivil Unknown Oral 5. metoprolol tartrate Unknown Oral has not started yet* - PMHx: CHF; Hypertension; - PSHx: Appendectomy; - Social history: Smoking status: Patient states was never smoker of tobacco. No barriers to communication noted, The patient speaks fluent [place], Speaks appropriately for age. - Family history: Not pertinent. - : The pt / caregiver states he / she is not on anticoagulants. Home medication list is obtained from family members. - Exposure Risk Screening:: None identified. Screenin:48 Screening information is obtained from the patient. Fall risk: At risk due to age. js13 Assistance ADL's: requires no assistance with activities of daily living. Abuse/DV Screen: The patient / caregiver reports he/she is: not in a situation that causes fear, pain or injury. Nutritional screening: No deficits noted. Advance Directives: There is no active DNR order. home support is adequate. Assessment: 00:30 General: Appears in no apparent distress, comfortable, Behavior is appropriate for age, h cooperative, informed of results and pending transfer, pleasant and cooperative, pain continues at 2/10, denies needs. 09:01 General: Appears in no apparent distress, Behavior is appropriate for age, cooperative. js13 Pain: Denies pain. Neurological: Level of Consciousness is awake, alert. Cardiovascular: Rhythm is sinus tachycardia with 1st degree heart block Chest pain is described as mild, quality is pressure, is located in left chest wall radiates to left scapula episodes are continuous began 2 hours prior to arrival. Respiratory: Airway is patent Respiratory effort is even, unlabored, Respiratory pattern is regular, symmetrical, Breath sounds are clear bilaterally. Derm: Skin is pink, warm & dry. 10:10 General: Appears in no apparent distress, Behavior is appropriate for age, cooperative. js13 Neurological: Level of Consciousness is awake, alert. Cardiovascular: Rhythm is sinus rhythm with 1st degree heart block Chest pain is described as mild, quality is pressure, radiates to left scapula episodes are continuous. Respiratory: Airway is patent Respiratory effort is even, unlabored, Respiratory pattern is regular, symmetrical. Derm: Skin is pink, warm & dry. 11:25 General: Appears in no apparent distress, comfortable, Behavior is appropriate for age, h cooperative, pleasant. Pain: Location: chest Pain currently is 2 out of 10 on a pain scale. Neurological: Level of Consciousness is awake, alert, Oriented to person, place, time. Cardiovascular: Rhythm is first degree AV Block with bigeminal PVCs. Respiratory: Airway is patent Respiratory effort is even, unlabored, Respiratory pattern is regular, symmetrical. Derm: Skin is pink, warm & dry. 13:12 General: Appears in no apparent distress, comfortable, Behavior is appropriate for age, [facility] cooperative, no new problems or complaints, report called to Anastasia Horton RN. Transport pending. No changes from previous assessment. Vital Signs: 08:44 BP 131 / 87; Pulse 107; Resp 20; Temp 97.2(TE); Pulse Ox 93% on R/A; Weight 83.91 kg ct3 (M); Height 6 ft. 0 in. (182.88 cm) (R); 08:56 BP 124 / 90 (auto/); js13 08:56 Pulse 102 MON; Resp 16; Pulse Ox 94% on R/A; js13 09:11 BP 126 / 87 (auto/); js13 09:11 Pulse 102 MON; Resp 16; Pulse Ox 96% on R/A; js13 09:26 BP 125 / 89 (auto/); js13 09:26 Pulse 102 MON; Resp 16; Pulse Ox 94% on R/A; js13 09:41 BP 121 / 86 (auto/); js13 09:41 Pulse 102 MON; Resp 16; Pulse Ox 95% on R/A; js13 09:56 BP 107 / 90 (auto/); js13 09:56 Pulse 98 MON; Resp 16; Pulse Ox 95% on R/A; js13 10:11 BP 97 / 69 (auto/); js13 10:11 Pulse 98 MON; Resp 16; Pulse Ox 96% on R/A; js13 10:26 BP 111 / 61 (auto/); js13 10:26 Pulse 96 MON; Resp 16; Pulse Ox 96% on R/A; js13 10:41 BP 108 / 64 (auto/); js13 10:41 Pulse 92 MON; Resp 16; Pulse Ox 97% on R/A; js13 10:56 BP 114 / 69 (auto/); js13 10:56 Pulse 86 MON; Resp 16; Pulse Ox 98% on R/A; js13 11:11 Pulse 82 MON; Pulse Ox 95% ; cjh 11:11 BP 108 / 62 (auto/); cjh 11:25 Pulse 88 MON; Pulse Ox 96% ; cjh 11:26 BP 115 / 77 (auto/); cjh 11:40 Pulse 84 MON; Pulse Ox 95% ; cjh 11:41 BP 110 / 68 (auto/); cjh 11:55 Pulse 82 MON; Pulse Ox 96% ; cjh 11:56 BP 127 / 62 (auto/); cjh 12:10 Pulse 76 MON; Pulse Ox 96% ; cjh 12:11 BP 111 / 63 (auto/); cjh 12:25 Pulse 70 MON; Pulse Ox 97% ; cjh 12:26 BP 93 / 52 (auto/); cjh 12:40 Pulse 86 MON; Pulse Ox 95% ; cjh 12:41 BP 119 / 79 (auto/); cjh 12:52 Pulse 90 MON; Pulse Ox 96% ; cjh 12:53 BP 125 / 71 (auto/); cjh 12:55 Pulse 78 MON; Pulse Ox 95% ; cjh 12:56 BP 96 / 68 (auto/); cjh 13:07 Pulse 82 MON; Pulse Ox 96% ; cjh 13:07 BP 165 / 63 (auto/); cjh 13:11 BP 165 / 63; Pulse 83; Resp 18; Temp 97.3(TE); Pulse Ox 99% ; cjh 08:44 Body Mass Index 25.09 (83.91 kg, 182.88 cm) ct3 ED Course: 08:33 Patient visited by Tina Padron. mm15 08:33 Taj Mayes is Private Physician. mm15 08:33 Patient moved to Waiting mm15 08:35 Rea Diane,RN is Primary Nurse. hs1 08:35 Patient moved to 15 hs1 08:36 Triage Initiated hs1 08:41 Karla Walker MD is Attending Physician. fg 08:41 Patient visited by Karla Walker MD. fg 08:41 EKG done. (by ED staff). Reviewed by Karla Walker MD. dem1 08:42 Patient visited by Catherine Rapp. dem1 08:44 Accompanied by Family Member, Patient has correct armband on for positive ct3 identification. Placed in gown. Bed in low position. Call light in reach. Side rails up X2. director intelligence analysis programs on. Pulse ox on. NIBP on. 08:45 Patient visited by Claudine Terrell PCA. ct3 08:48 The patient / caregiver is instructed regarding the plan of care and ED course. js13 08:48 Inserted saline lock: 18 gauge in left antecubital area and blood collected. The js13 patient tolerated the procedure well. No procedures done that require assistance. Labs drawn. (by ED staff). Sent per order to lab. Labs/Blood culture drawn. 08:50 Patient visited by Rea Diane RN. js13 08:50 B-Type Natiuretic Peptide Sent. js13 08:50 Basic Metabolic Profile Sent. js13 08:50 CBC with Diff Sent. js13 08:50 Cardiac Injury Profile Sent. js13 08:50 Prothrombin Time Profile\E\INR Sent. js13 08:50 Troponin Sent. js13 09:03 Patient visited by Rea Diane RN. js13 09:07 EKG done. (by ED staff). Reviewed by Karla Walker MD. ct3 09:20 Patient visited by Claudine Terrell PCA. ct3 09:22 [facility] Payment Agreement was scanned into Keep Me Certified and attached to record. lg 10:11 Patient visited by Rea Diane RN. js13 10:14 portable chest Returned. EDMS 11:18 EKG done. (by ED staff). Reviewed by Karla Walker MD. dem1 11:22 Patient visited by Catherine Rapp. dem1 11:25 Troponin: 1130 Sent. cjh 11:25 Cardiac Marker Panel: 1130 Sent. cjh 11:35 Patient visited by Catherine Rapp. dem1 11:35 EKG done. (by ED staff). Reviewed by Karla Walker MD. dem1 11:49 PHOSPHOROUS LEVEL Sent. cjh 11:49 MAGNESIUM LEVEL Sent. cjh 12:11 Patient visited by Taryn Villaseñor RN. pml 12:11 Notified attending ED physician of Critical lab value. troponin 2.24. pml 12:34 CT Chest Angio R/O PE Returned. EDMS 12:44 Inserted saline lock: 18 gauge in right forearm The patient tolerated the procedure js13 well. Administered Medications: 09:04 Drug: Aspirin 324 mg [aspirin 81 mg chewable tablet (4 tabs)] Route: PO; 12:59 Drug: heparin (Thrombolytic Protocol, 12 units/kg/hr)) 65222 units {Co-Signature: ml6 alley (Amadeo Pearson RN).} Route: IV; Rate: 12 units/kg/hr; Site: left antecubital; 12:59 Drug: heparin (Thrombolytic Protocol, 60 units/kg)) 5034.6 units {Co-Signature: ml6 [facility] (Amadeo Pearson RN).} Route: IVP; Site: left antecubital; 13:00 Drug: Plavix - Clopidogrel 300 mg [clopidogrel 75 mg tablet (4 tabs)] Route: PO; [facility] Output: 13:09 Urine: 700.00ml (Voided); Total: 700.00ml. mb9 Order Results: Lab Order: B-Type Natiuretic Peptide; SPEC'M 12/11/16 08:45 Test: BRAIN NATRIURETIC PEPTIDE; Value: 564; Range: <100; Abnormal: Above high normal; Units: PG/ML; Status: F Lab Order: Basic Metabolic Profile; SPEC'M 12/11/16 08:45 Test: GLUCOSE, FASTING; Value: 352; Range: 83-110; Abnormal: Above high normal; Units: MG/DL; Status: F Test: BLOOD UREA NITROGEN; Value: 38; Range: 7-18; Abnormal: Above high normal; Units: MG/DL; Status: F Test: CREATININE FOR GFR; Value: 1.13; Range: 0.70-1.30; Units: MG/DL; Status: F Test: GLOMERULAR FILTRATION RATE; Value: > 60.0; Range: >42; Status: F Test: SODIUM LEVEL; Value: 134; Range: 136-145; Abnormal: Below low normal; Units: MEQ/L; Status: F Test: POTASSIUM SERUM; Value: 4.9; Range: 3.5-5.1; Units: MEQ/L; Status: F Test: CHLORIDE LEVEL; Value: 96; Range: 98-107; Abnormal: Below low normal; Units: MEQ/L; Status: F Test: CARBON DIOXIDE LEVEL; Value: 28; Range: 21-32; Units: MEQ/L; Status: F Test: ANION GAP; Value: 10; Range: 8-16; Units: MEQ/L; Status: F Test: CALCIUM LEVEL; Value: 9.5; Range: 8.8-10.2; Units: MG/DL; Status: F Test Note: ; Units are mL/min/1.73 m2 Chronic Kidney Disease Staging per NKF: Stage I & II GFR >=60 Normal to Mildly Decreased Stage III GFR 30-59 Moderately Decreased Stage IV GFR 15-29 Severely Decreased Stage V GFR <15 Very Little GFR Left ESRD GFR <15 on UNDERGROUND PRODUCTION FOREPERSON Lab Order: CBC with Diff; SPEC'M 12/11/16 08:45 Test: WHITE BLOOD COUNT; Value: 4.4; Range: 4.0-10.0; Units: K/mm3; Status: F Test: RED BLOOD COUNT; Value: 5.83; Range: 4.30-6.10; Units: M/mm3; Status: F Test: HEMOGLOBIN; Value: 17.3; Range: 14.0-18.0; Units: g/dl; Status: F Test: HEMATOCRIT; Value: 53.7; Range: 42.0-52.0; Abnormal: Above high normal; Units: %; Status: F Test: MEAN CORPUSCULAR VOLUME; Value: 92.1; Range: 80.0-96.0; Units: fl; Status: F Test: MEAN CORPUSCULAR HEMOGLOBIN; Value: 29.6; Range: 27.0-33.0; Units: pg; Status: F Test: MEAN CORPUSCULAR HGB CONC; Value: 32.1; Range: 32.0-36.5; Units: g/dl; Status: F Test: RED CELL DISTRIBUTION WIDTH; Value: 13.1; Range: 11.5-14.5; Units: %; Status: F Test: PLATELET COUNT, AUTOMATED; Value: 136; Range: 150-450; Abnormal: Below low normal; Units: k/mm3; Status: F Test: NEUTROPHILS %; Value: 49.5; Range: 36.0-66.0; Units: %; Status: F Test: LYMPH %; Value: 31.5; Range: 24.0-44.0; Units: %; Status: F Test: MONO %; Value: 7.5; Range: 0.0-5.0; Abnormal: Above high normal; Units: %; Status: F Test: EOS %; Value: 5.9; Range: 0.0-3.0; Abnormal: Above high normal; Units: %; Status: F Test: BASO %; Value: 1.0; Range: 0.0-1.0; Units: %; Status: F Test: LARGE UNSTAINED CELL %; Value: 4.6; Range: 0.0-4.0; Abnormal: Above high normal; Units: %; Status: F Test: NEUTROPHILS #; Value: 2.2; Range: 1.8-7.7; Units: K/mm3; Status: F Test: LYMPH #; Value: 1.4; Range: 1.5-4.5; Abnormal: Below low normal; Units: K/mm3; Status: F Test: MONO #; Value: 0.3; Range: 0.0-0.8; Units: K/mm3; Status: F Test: EOS #; Value: 0.3; Range: 0.0-0.50; Units: K/mm3; Status: F Test: BASO #; Value: 0.0; Range: 0.0-0.2; Units: K/mm3; Status: F Test: LARGE UNSTAINED CELL #; Value: 0.2; Range: 0.0-0.4; Units: K/mm3; Status: F Lab Order: Cardiac Injury Profile; SPEC'M 12/11/16 08:45 Test: CPK CREATINE PHOSPHOKINASE; Value: 80; Range: 39-308; Units: U/L; Status: F Test: CK-MB VALUE MASS; Value: 4.7; Range: 0.0-3.6; Abnormal: Above high normal; Units: NG/ML; Status: F Test: MB/CK RELATIVE INDEX; Value: 5.87; Range: < OR =4; Abnormal: Above high normal; Status: F Test Note: ; DIAGNOSIS CRITERIA MMB ng/ml Relative Index (RI) NON-AMI < or = 5 N/A COLLINS ZONE > 5 < or = 4 AMI > 5 > 4 Lab Order: Prothrombin Time Profile\E\INR; SPEC'M 12/11/16 08:45 Test: PROTHROMBIN TIME; Value: 13.6; Range: 12.3-14.5; Units: SECONDS; Status: F Test: INR; Value: 1.03; Status: F Test Note: ; THERAPUTIC HUMAN INR VALUES INDICATIONS NORMAL RANGES PROPHYLAXIS/TREATMENT OF: VENOUS THROMBOSIS 2.0-3.0 PULMONARY EMBOLISM 2.0-3.0 PREVENTION OF SYSTEMIC EMBOLISM FROM: TISSUE HEART VALVES 2.0-3.0 ACUTE MYOCARDIAL INFARCTION 2.0-3.0 VALVULAR HEART DISEASE 2.0-3.0 ATRIAL FIBRILLATION 2.0-3.0 MECHANICAL VALVES(HIGH RISK) 2.5-3.5 RECURRENT MYOCARDIAL INFARCTION 2.5-3.5 Lab Order: Troponin; [facility]12/11[facility] 08:45 Test: TROPONIN I; Value: < 0.02; Range: < 0.10; Units: NG/ML; Status: F Test Note: ; Troponin I Reference Interval for Syndiant LOCI: 99th Percentile= 0.00-0.045 ng/ml Risk Stratification: <= 0.10 ng/ml Decreased Risk for Adverse Clinical Events. 0.10-1.50 ng/ml Increased Risk for Adverse Clinical Events. Evaluation of additional criterion and/or repeat testing in 2-6 hours is suggested to rule out myocardial damage. >= 1.50 ng/ml Indicative of Myocardial Injury. Lab Order: Cardiac Marker Panel: 1130; [facility]12/11/16 11:22 Test: CPK CREATINE PHOSPHOKINASE; Value: 136; Range: 39-308; Units: U/L; Status: F Test: CK-MB VALUE MASS; Value: 12.4; Range: 0.0-3.6; Abnormal: Above high normal; Units: NG/ML; Status: F Test: MB/CK RELATIVE INDEX; Value: 9.11; Range: < OR =4; Abnormal: Above high normal; Status: F Test: TROPONIN I; Value: 2.24; Range: < 0.10; Abnormal: Critical Delta High; Units: NG/ML; Status: F Test Note: ; DIAGNOSIS CRITERIA MMB ng/ml Relative Index (RI) NON-AMI < or = 5 N/A COLLINS ZONE > 5 < or = 4 AMI > 5 > 4 Lab Order: MAGNESIUM LEVEL; [facility]12/11/16 11:22 Test: MAGNESIUM LEVEL; Value: 2.1; Range: 1.8-2.4; Units: MG/DL; Status: F Lab Order: PHOSPHOROUS LEVEL; [facility] 12/11/16 11:22 Test: PHOSPHORUS LEVEL; Value: 2.3; Range: 2.5-4.9; Abnormal: Below low normal; Units: MG/DL; Status: F Radiology Order: portable chest Test: portable chest REASON FOR EXAMINATION: Chest Pain; Chest x-ray: Sitting AP view portably obtained.; ; History: Chest pain.; ; Comparison study November 25, 2016.; ; Findings: There is moderate cardiomegaly. A diffuse interstitial pulmonary; edema pattern is seen. There is fissural thickening in the minor fissure. No; free pleural effusion is appreciated. No focal infiltrate is seen. The aorta is; tortuous. There are degenerative changes in the thoracic spine.; ; Impression:; ; CHF pattern with moderate interstitial pulmonary edema.; ; ; Signed by; Froilan Lopez MD 12/11/2016 10:24 A; Radiology Order: CT Chest Angio R/O PE Test: CT Chest Angio R/O PE REASON FOR EXAMINATION: Chest Pain; CT PULMONARY ANGIOGRAM, WITH IV CONTRAST; ; HISTORY: Chest pain.; ; COMPARISON STUDIES: Comparison is made with today's chest x-ray. No prior CTs.; ; CONTRAST DOSE: 75 mL of Isovue-370 are administered intravenously.; ; CT TECHNIQUE: Helical scanning is acquired and overlapping 1.5 mm and contiguous; 3 mm axial images are reformatted. In addition, a 3D work station is deployed to; generate thick slab maximum intensity projection images in sagittal and coronal; imaging projections. I am informed by the technologist that there was a brief; delay in scan initiation after contrast, due to technical difficulty.; ; CT PULMONARY ANGIOGRAPHIC FINDINGS: There is fair opacification of the pulmonary; arterial tree. There is no CT evidence of pulmonary embolism. The study is felt; to be diagnostic. There is also excellent opacification of the thoracic aorta; which enhances homogeneously and is normal in caliber. Vascular calcification is; noted. There is left coronary artery and right coronary artery vascular; calcification as well. Cardiomegaly is observed. There is a small quantity of; right pleural fluid. There are granulomatous calcifications in the right middle; lobe. Granulomatous lymph node calcifications are seen in the subcarinal region.; There are scattered right hilar and pretracheal lymph nodes. The largest of; these is a triangular-shaped lymph node in the precarinal region measuring 1.5 x; 1.4 cm. A granulomatous lymph node calcification is seen in the left hilus is; well. There is a left lower lobe pulmonary granuloma. Some fissural thickening; is seen in the major fissure on the right. There is interstitial edema pattern; in the bases, right more so than left with Sushma B lines. No pulmonary mass; lesion is seen. The visualized upper abdominal structures are unremarkable. No; bony destructive lesion is seen.; ; IMPRESSION:; 1. No CT evidence of pulmonary embolism.; 2. Cardiomegaly, small right pleural effusion, and mild interstitial edema; pattern consistent with CHF.; 3. Coronary artery vascular calcification.; 4. Old granulomatous calcific residuals.; 5. No other significant abnormality.; ; ; ; ; Unreviewed; Outcome: 11:25 Discharge Assessment: Patient awake, alert and oriented x 3. No cognitive and/or [facility] functional deficits noted. Patient verbalized understanding of disposition instructions. patient administered narcotics - no. The following High Risk Discharge criteria are identified: None. Transferred to [facility]. by EMS ground [facility]. critical. CT Study completed. Property :Personal belongings accompany Pt. 12:20 ER care complete, transfer ordered by Provider. fg 13:16 Patient left the ED. [facility] Signatures: Dispatcher [employer] EDMS Astrid Salter, Reg Reg lg Jessica Mandujano RN RN hs1 Claudine Terrell, OFFAL TRIMMER OFFAL TRIMMER ct3 Taryn Villaseñor,RN RN Catherine Simon1 Rea DianeRN RN js Meli FloresRN RN [facility] Tina Padron mm15 Arnold Flores,RN RN mb9 Karla Walker MD MD Amadeo Pearson RN ml6 Corrections: (The following items were deleted from the chart) 09:01 08:48 Cardiovascular: Chest pain is described as vague, radiates Does not radiate. js13 episodes are intermittent began 1 hour prior to arrival js 11:46 11:44 MAGNESIUM LEVEL+LAB sent. [facility] EDTX 11:46 11:44 PHOSPHOROUS LEVEL+LAB sent. [facility] EDTX 13:15 13:09 BP 165 / 63; Pulse 83bpm; Resp 18bpm; Pulse Ox 99%; Temp 97.3F Temporal; [address] MTDD
--- NOTE | 2016-12-11 21:28 | ECGEPIP ---
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
--- NOTE | 2016-12-12 12:44 | ECGEPIP ---
Stationary ECG Study 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 : 1945 Requested By: OTONIEL Sheikh Order Number: [id number] Reading MD: Angie Hartman Measurements Intervals [place] Rate: 78 P: 13 TN: 219 QRS: 69 QRSD: 111 T: 106 QT: 392 QTc: 448 Interpretive Statements SINUS RHYTHM WITH FIRST DEGREE AV BLOCK WITH FREQUENT VENTRICULAR PREMATURE COMPLEXES POSSIBLE LEFT ATRIAL ENLARGEMENT LOW QRS VOLTAGE IN EXTREMITY LEADS MODERATE INTRAVENTRICULAR CONDUCTION DELAY ST DEVIATION AND MODERATE T-WAVE ABNORMALITY, CONSIDER LATERAL ISCHEMIA CW 12/11/16 - RATE DECREASED NONSPECIFIC ST T WAVE CHANGES Electronically Signed On 12-12-2016 12:44:42 EST by Angie Hartman
--- NOTE | 2016-12-12 12:46 | ECGEPIP ---
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 : 1945 Requested By: OTONIEL Sheikh Order Number: [id number] Reading MD: Angie Hartman Measurements Intervals [place] Rate: 79 P: 58 CO: 252 QRS: 65 QRSD: 112 T: 100 QT: 404 QTc: 465 Interpretive Statements SINUS RHYTHM WITH FIRST DEGREE AV BLOCK WITH FREQUENT VENTRICULAR PREMATURE COMPLEXES POSSIBLE LEFT ATRIAL ENLARGEMENT MODERATE INTRAVENTRICULAR CONDUCTION DELAY ST DEVIATION AND MODERATE T-WAVE ABNORMALITY, CONSIDER LATERAL ISCHEMIA DELAYED R WAVE PROGRESSION LOW QRS VOLTAGES LIMB LEAD CW 12/11/16 - RATE SIMILAR SIMILAR MORPHOLOGY Electronically Signed On 12-12-2016 12:46:33 EST by Angie Hartman
--- NOTE | 2016-12-13 14:17 | EDDOCDS ---
Nurse's Notes [facility] Name: García Peres Age: 71 yrs Sex: Male : 1945 Arrival Date: 12/11/2016 Time: 08:32 Bed 15 Private MD: Taj Mayes MD Diagnosis: Non-ST elevation (NSTEMI) myocardial infarction;Chest pain, unspecified Presentation: 12/11 08:35 Presenting complaint: Patient states: chest pain started approx 1 hour ago. Patient hs1 states has not felt like this before. Patient states pain radiated toward left arm. Aspirin was not taken prior to arrival. Adult Sepsis Screening: The patient does not have new or worsening altered mentation. Patient's respiratory rate is less than 22. Systolic blood pressure is greater than 100. Patient has a qSOFA score of 0- Negative Sepsis Screen. Suicide/Homicide risk assessment- the patient denies having any suicidal and/or homicidal ideations and does not present with any other emotional, behavioral or mental health complaints. Status: Patient is not a community service manager or dependent. Transition of care: patient was not received from another setting of care. 08:35 Acuity: FANNY Level 2 hs1 08:35 Method Of Arrival: Walkin/Carried/Asstd hs1 08:35 Red Flag criteria, patient assessed and taken directly to a bed. hs1 Triage Assessment: 08:48 General: Appears in no apparent distress, Behavior is appropriate for age, cooperative. js13 Pain: Denies pain. Cardiovascular: Chest pain is described as mild, radiates to left scapula episodes are continuous began 2 hours prior to arrival. 09:00 Respiratory: Airway is patent Respiratory effort is even, unlabored, Breath sounds are js13 clear Reports cough that is non-productive. Derm: Skin is pink, warm & dry. Historical: - Allergies: no known allergies; - Home Meds: 1. torsemide Unknown oral 2. spironolactone Unknown Oral 3. carvedilol Unknown oral 4. Prinivil Unknown Oral 5. metoprolol tartrate Unknown Oral has not started yet* - PMHx: CHF; Hypertension; - PSHx: Appendectomy; - Social history: Smoking status: Patient states was never smoker of tobacco. No barriers to communication noted, The patient speaks fluent Syriac, Speaks appropriately for age. - Family history: Not pertinent. - : The pt / caregiver states he / she is not on anticoagulants. Home medication list is obtained from family members. - Exposure Risk Screening:: None identified. Screenin:48 Screening information is obtained from the patient. Fall risk: At risk due to age. js13 Assistance ADL's: requires no assistance with activities of daily living. Abuse/DV Screen: The patient / caregiver reports he/she is: not in a situation that causes fear, pain or injury. Nutritional screening: No deficits noted. Advance Directives: There is no active DNR order. home support is adequate. Assessment: 00:30 General: Appears in no apparent distress, comfortable, Behavior is appropriate for age, h cooperative, informed of results and pending transfer, pleasant and cooperative, pain continues at 2/10, denies needs. 09:01 General: Appears in no apparent distress, Behavior is appropriate for age, cooperative. js13 Pain: Denies pain. Neurological: Level of Consciousness is awake, alert. Cardiovascular: Rhythm is sinus tachycardia with 1st degree heart block Chest pain is described as mild, quality is pressure, is located in left chest wall radiates to left scapula episodes are continuous began 2 hours prior to arrival. Respiratory: Airway is patent Respiratory effort is even, unlabored, Respiratory pattern is regular, symmetrical, Breath sounds are clear bilaterally. Derm: Skin is pink, warm & dry. 10:10 General: Appears in no apparent distress, Behavior is appropriate for age, cooperative. js13 Neurological: Level of Consciousness is awake, alert. Cardiovascular: Rhythm is sinus rhythm with 1st degree heart block Chest pain is described as mild, quality is pressure, radiates to left scapula episodes are continuous. Respiratory: Airway is patent Respiratory effort is even, unlabored, Respiratory pattern is regular, symmetrical. Derm: Skin is pink, warm & dry. 11:25 General: Appears in no apparent distress, comfortable, Behavior is appropriate for age, h cooperative, pleasant. Pain: Location: chest Pain currently is 2 out of 10 on a pain scale. Neurological: Level of Consciousness is awake, alert, Oriented to person, place, time. Cardiovascular: Rhythm is first degree AV Block with bigeminal PVCs. Respiratory: Airway is patent Respiratory effort is even, unlabored, Respiratory pattern is regular, symmetrical. Derm: Skin is pink, warm & dry. 13:12 General: Appears in no apparent distress, comfortable, Behavior is appropriate for age, [facility] cooperative, no new problems or complaints, report called to Anastasia Horton RN. Transport pending. No changes from previous assessment. Vital Signs: 08:44 BP 131 / 87; Pulse 107; Resp 20; Temp 97.2(TE); Pulse Ox 93% on R/A; Weight 83.91 kg ct3 (M); Height 6 ft. 0 in. (182.88 cm) (R); 08:56 BP 124 / 90 (auto/); js13 08:56 Pulse 102 MON; Resp 16; Pulse Ox 94% on R/A; js13 09:11 BP 126 / 87 (auto/); js13 09:11 Pulse 102 MON; Resp 16; Pulse Ox 96% on R/A; js13 09:26 BP 125 / 89 (auto/); js13 09:26 Pulse 102 MON; Resp 16; Pulse Ox 94% on R/A; js13 09:41 BP 121 / 86 (auto/); js13 09:41 Pulse 102 MON; Resp 16; Pulse Ox 95% on R/A; js13 09:56 BP 107 / 90 (auto/); js13 09:56 Pulse 98 MON; Resp 16; Pulse Ox 95% on R/A; js13 10:11 BP 97 / 69 (auto/); js13 10:11 Pulse 98 MON; Resp 16; Pulse Ox 96% on R/A; js13 10:26 BP 111 / 61 (auto/); js13 10:26 Pulse 96 MON; Resp 16; Pulse Ox 96% on R/A; js13 10:41 BP 108 / 64 (auto/); js13 10:41 Pulse 92 MON; Resp 16; Pulse Ox 97% on R/A; js13 10:56 BP 114 / 69 (auto/); js13 10:56 Pulse 86 MON; Resp 16; Pulse Ox 98% on R/A; js13 11:11 Pulse 82 MON; Pulse Ox 95% ; cjh 11:11 BP 108 / 62 (auto/); cjh 11:25 Pulse 88 MON; Pulse Ox 96% ; cjh 11:26 BP 115 / 77 (auto/); cjh 11:40 Pulse 84 MON; Pulse Ox 95% ; cjh 11:41 BP 110 / 68 (auto/); cjh 11:55 Pulse 82 MON; Pulse Ox 96% ; cjh 11:56 BP 127 / 62 (auto/); cjh 12:10 Pulse 76 MON; Pulse Ox 96% ; cjh 12:11 BP 111 / 63 (auto/); cjh 12:25 Pulse 70 MON; Pulse Ox 97% ; cjh 12:26 BP 93 / 52 (auto/); cjh 12:40 Pulse 86 MON; Pulse Ox 95% ; cjh 12:41 BP 119 / 79 (auto/); cjh 12:52 Pulse 90 MON; Pulse Ox 96% ; cjh 12:53 BP 125 / 71 (auto/); cjh 12:55 Pulse 78 MON; Pulse Ox 95% ; cjh 12:56 BP 96 / 68 (auto/); cjh 13:07 Pulse 82 MON; Pulse Ox 96% ; cjh 13:07 BP 165 / 63 (auto/); cjh 13:11 BP 165 / 63; Pulse 83; Resp 18; Temp 97.3(TE); Pulse Ox 99% ; cjh 08:44 Body Mass Index 25.09 (83.91 kg, 182.88 cm) ct3 ED Course: 08:33 Patient visited by Tina Padron. mm15 08:33 Taj Mayes is Private Physician. mm15 08:33 Patient moved to Waiting mm15 08:35 Rea Diane,RN is Primary Nurse. hs1 08:35 Patient moved to 15 hs1 08:36 Triage Initiated hs1 08:41 Karla Walker MD is Attending Physician. fg 08:41 Patient visited by Karla Walker MD. fg 08:41 EKG done. (by ED staff). Reviewed by Karla Walker MD. dem1 08:42 Patient visited by Catherine Rapp. dem1 08:44 Accompanied by Family Member, Patient has correct armband on for positive ct3 identification. Placed in gown. Bed in low position. Call light in reach. Side rails up X2. athletic monitor on. Pulse ox on. NIBP on. 08:45 Patient visited by Claudine Terrell PCA. ct3 08:48 The patient / caregiver is instructed regarding the plan of care and ED course. js13 08:48 Inserted saline lock: 18 gauge in left antecubital area and blood collected. The js13 patient tolerated the procedure well. No procedures done that require assistance. Labs drawn. (by ED staff). Sent per order to lab. Labs/Blood culture drawn. 08:50 Patient visited by Rea Diane RN. js13 08:50 B-Type Natiuretic Peptide Sent. js13 08:50 Basic Metabolic Profile Sent. js13 08:50 CBC with Diff Sent. js13 08:50 Cardiac Injury Profile Sent. js13 08:50 Prothrombin Time Profile\E\INR Sent. js13 08:50 Troponin Sent. js13 09:03 Patient visited by Rea Diane RN. js13 09:07 EKG done. (by ED staff). Reviewed by Karla Walker MD. ct3 09:20 Patient visited by Claudine Terrell PCA. ct3 09:22 [facility] Payment Agreement was scanned into Pinterest and attached to record. lg 10:11 Patient visited by Rea Diane RN. js13 10:14 portable chest Returned. EDMS 11:18 EKG done. (by ED staff). Reviewed by Karla Walker MD. dem1 11:22 Patient visited by Catherine Rapp. dem1 11:25 Troponin: 1130 Sent. cjh 11:25 Cardiac Marker Panel: 1130 Sent. cjh 11:35 Patient visited by Catherine Rapp. dem1 11:35 EKG done. (by ED staff). Reviewed by Karla Walker MD. dem1 11:49 PHOSPHOROUS LEVEL Sent. cjh 11:49 MAGNESIUM LEVEL Sent. cjh 12:11 Patient visited by Taryn Villaseñor RN. pml 12:11 Notified attending ED physician of Critical lab value. troponin 2.24. pml 12:34 CT Chest Angio R/O PE Returned. EDMS 12:44 Inserted saline lock: 18 gauge in right forearm The patient tolerated the procedure js13 well. 22:16 EKG-ADULT Returned. EDMS 02 13:27 ECG WITH READING ER PHYS Returned. EDMS 13:27 EKG-ADULT Returned. EDMS 17:03 T-Sheet-- Draft Copy was scanned into Pinterest and attached to record. gb 17:03 ECG/EKG was scanned into Pinterest and attached to record. gb Administered Medications: 12/11 09:04 Drug: Aspirin 324 mg [aspirin 81 mg chewable tablet (4 tabs)] Route: PO; js13 12:59 Drug: heparin (Thrombolytic Protocol, 12 units/kg/hr)) 17099 units {Co-Signature: ml6 [facility] (Amadeo Pearson RN).} Route: IV; Rate: 12 units/kg/hr; Site: left antecubital; 12:59 Drug: heparin (Thrombolytic Protocol, 60 units/kg)) 5034.6 units {Co-Signature: ml6 [facility] (Amadeo Pearson RN).} Route: IVP; Site: left antecubital; 13:00 Drug: Plavix - Clopidogrel 300 mg [clopidogrel 75 mg tablet (4 tabs)] Route: PO; [facility] 13:49 Not Given (cancel per VO Provider): Nitro-Bid Ointment 2 % 0.5 inches Transdermal once [facility] Output: 13:09 Urine: 700.00ml (Voided); Total: 700.00ml. mb9 Order Results: Lab Order: B-Type Natiuretic Peptide; SPEC'M 12/11/16 08:45 Test: BRAIN NATRIURETIC PEPTIDE; Value: 564; Range: <100; Abnormal: Above high normal; Units: PG/ML; Status: F Lab Order: Basic Metabolic Profile; SPEC'M 12/11/16 08:45 Test: GLUCOSE, FASTING; Value: 352; Range: 83-110; Abnormal: Above high normal; Units: MG/DL; Status: F Test: BLOOD UREA NITROGEN; Value: 38; Range: 7-18; Abnormal: Above high normal; Units: MG/DL; Status: F Test: CREATININE FOR GFR; Value: 1.13; Range: 0.70-1.30; Units: MG/DL; Status: F Test: GLOMERULAR FILTRATION RATE; Value: > 60.0; Range: >42; Status: F Test: SODIUM LEVEL; Value: 134; Range: 136-145; Abnormal: Below low normal; Units: MEQ/L; Status: F Test: POTASSIUM SERUM; Value: 4.9; Range: 3.5-5.1; Units: MEQ/L; Status: F Test: CHLORIDE LEVEL; Value: 96; Range: 98-107; Abnormal: Below low normal; Units: MEQ/L; Status: F Test: CARBON DIOXIDE LEVEL; Value: 28; Range: 21-32; Units: MEQ/L; Status: F Test: ANION GAP; Value: 10; Range: 8-16; Units: MEQ/L; Status: F Test: CALCIUM LEVEL; Value: 9.5; Range: 8.8-10.2; Units: MG/DL; Status: F Test Note: ; Units are mL/min/1.73 m2 Chronic Kidney Disease Staging per NKF: Stage I & II GFR >=60 Normal to Mildly Decreased Stage III GFR 30-59 Moderately Decreased Stage IV GFR 15-29 Severely Decreased Stage V GFR <15 Very Little GFR Left ESRD GFR <15 on [employer] FORMER SUPERVISOR Lab Order: CBC with Diff; SPEC'M 12/11/16 08:45 Test: WHITE BLOOD COUNT; Value: 4.4; Range: 4.0-10.0; Units: K/mm3; Status: F Test: RED BLOOD COUNT; Value: 5.83; Range: 4.30-6.10; Units: M/mm3; Status: F Test: HEMOGLOBIN; Value: 17.3; Range: 14.0-18.0; Units: g/dl; Status: F Test: HEMATOCRIT; Value: 53.7; Range: 42.0-52.0; Abnormal: Above high normal; Units: %; Status: F Test: MEAN CORPUSCULAR VOLUME; Value: 92.1; Range: 80.0-96.0; Units: fl; Status: F Test: MEAN CORPUSCULAR HEMOGLOBIN; Value: 29.6; Range: 27.0-33.0; Units: pg; Status: F Test: MEAN CORPUSCULAR HGB CONC; Value: 32.1; Range: 32.0-36.5; Units: g/dl; Status: F Test: RED CELL DISTRIBUTION WIDTH; Value: 13.1; Range: 11.5-14.5; Units: %; Status: F Test: PLATELET COUNT, AUTOMATED; Value: 136; Range: 150-450; Abnormal: Below low normal; Units: k/mm3; Status: F Test: NEUTROPHILS %; Value: 49.5; Range: 36.0-66.0; Units: %; Status: F Test: LYMPH %; Value: 31.5; Range: 24.0-44.0; Units: %; Status: F Test: MONO %; Value: 7.5; Range: 0.0-5.0; Abnormal: Above high normal; Units: %; Status: F Test: EOS %; Value: 5.9; Range: 0.0-3.0; Abnormal: Above high normal; Units: %; Status: F Test: BASO %; Value: 1.0; Range: 0.0-1.0; Units: %; Status: F Test: LARGE UNSTAINED CELL %; Value: 4.6; Range: 0.0-4.0; Abnormal: Above high normal; Units: %; Status: F Test: NEUTROPHILS #; Value: 2.2; Range: 1.8-7.7; Units: K/mm3; Status: F Test: LYMPH #; Value: 1.4; Range: 1.5-4.5; Abnormal: Below low normal; Units: K/mm3; Status: F Test: MONO #; Value: 0.3; Range: 0.0-0.8; Units: K/mm3; Status: F Test: EOS #; Value: 0.3; Range: 0.0-0.50; Units: K/mm3; Status: F Test: BASO #; Value: 0.0; Range: 0.0-0.2; Units: K/mm3; Status: F Test: LARGE UNSTAINED CELL #; Value: 0.2; Range: 0.0-0.4; Units: K/mm3; Status: F Lab Order: Cardiac Injury Profile; [facility] 12/11/16 08:45 Test: CPK CREATINE PHOSPHOKINASE; Value: 80; Range: 39-308; Units: U/L; Status: F Test: CK-MB VALUE MASS; Value: 4.7; Range: 0.0-3.6; Abnormal: Above high normal; Units: NG/ML; Status: F Test: MB/CK RELATIVE INDEX; Value: 5.87; Range: < OR =4; Abnormal: Above high normal; Status: F Test Note: ; DIAGNOSIS CRITERIA MMB ng/ml Relative Index (RI) NON-AMI < or = 5 N/A COLLINS ZONE > 5 < or = 4 AMI > 5 > 4 Lab Order: Prothrombin Time Profile\E\INR; [facility] 12/11/16 08:45 Test: PROTHROMBIN TIME; Value: 13.6; Range: 12.3-14.5; Units: SECONDS; Status: F Test: INR; Value: 1.03; Status: F Test Note: ; THERAPUTIC HUMAN INR VALUES INDICATIONS NORMAL RANGES PROPHYLAXIS/TREATMENT OF: VENOUS THROMBOSIS 2.0-3.0 PULMONARY EMBOLISM 2.0-3.0 PREVENTION OF SYSTEMIC EMBOLISM FROM: TISSUE HEART VALVES 2.0-3.0 ACUTE MYOCARDIAL INFARCTION 2.0-3.0 VALVULAR HEART DISEASE 2.0-3.0 ATRIAL FIBRILLATION 2.0-3.0 MECHANICAL VALVES(HIGH RISK) 2.5-3.5 RECURRENT MYOCARDIAL INFARCTION 2.5-3.5 Lab Order: Troponin; [facility] 12/11/16 08:45 Test: TROPONIN I; Value: < 0.02; Range: < 0.10; Units: NG/ML; Status: F Test Note: ; Troponin I Reference Interval for Bubbli LOCI: 99th Percentile= 0.00-0.045 ng/ml Risk Stratification: <= 0.10 ng/ml Decreased Risk for Adverse Clinical Events. 0.10-1.50 ng/ml Increased Risk for Adverse Clinical Events. Evaluation of additional criterion and/or repeat testing in 2-6 hours is suggested to rule out myocardial damage. >= 1.50 ng/ml Indicative of Myocardial Injury. Lab Order: Cardiac Marker Panel: 1130; [facility] 12/11/16 11:22 Test: CPK CREATINE PHOSPHOKINASE; Value: 136; Range: 39-308; Units: U/L; Status: F Test: CK-MB VALUE MASS; Value: 12.4; Range: 0.0-3.6; Abnormal: Above high normal; Units: NG/ML; Status: F Test: MB/CK RELATIVE INDEX; Value: 9.11; Range: < OR =4; Abnormal: Above high normal; Status: F Test: TROPONIN I; Value: 2.24; Range: < 0.10; Abnormal: Critical Delta High; Units: NG/ML; Status: F Test Note: ; DIAGNOSIS CRITERIA MMB ng/ml Relative Index (RI) NON-AMI < or = 5 N/A COLILNS ZONE > 5 < or = 4 AMI > 5 > 4 Lab Order: MAGNESIUM LEVEL; SPEC'M 12/11/16 11:22 Test: MAGNESIUM LEVEL; Value: 2.1; Range: 1.8-2.4; Units: MG/DL; Status: F Lab Order: PHOSPHOROUS LEVEL; SPEC'M 12/11/16 11:22 Test: PHOSPHORUS LEVEL; Value: 2.3; Range: 2.5-4.9; Abnormal: Below low normal; Units: MG/DL; Status: F Radiology Order: EKG-ADULT Test: EKG-ADULT REASON FOR EXAMINATION: Chest Pain; Stationary ECG Study; [facility] - ED; ; Test Date: 2016-12-11; Pat Name: GARCÍA PERES Department:; Room: -; 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:; : 1945 Requested By: KARLA Sheikh; Order Number: [id number] Reading MD: Delisa Canseco; Measurements; Intervals [place]; Rate: 96 P: 44; WI: 227 QRS: 93; QRSD: 120 T: 74; QT: 337; QTc: 428; Interpretive Statements; SINUS RHYTHM WITH MARKED SINUS ARRHYTHMIA WITH FIRST DEGREE AV BLOCK; POSSIBLE LEFT ATRIAL ENLARGEMENT; BORDERLINE RIGHT AXIS DEVIATION; MODERATE INTRAVENTRICULAR CONDUCTION DELAY; NONSPECIFIC ST T-WAVE ABNORMALITY; SIMILAR 11/25/16; Electronically Signed On 12-11-2016 21:27:41 EST by Delisa Canseco; Radiology Order: portable chest Test: portable chest REASON FOR EXAMINATION: Chest Pain; Chest x-ray: Sitting AP view portably obtained.; ; History: Chest pain.; ; Comparison study November 25, 2016.; ; Findings: There is moderate cardiomegaly. A diffuse interstitial pulmonary; edema pattern is seen. There is fissural thickening in the minor fissure. No; free pleural effusion is appreciated. No focal infiltrate is seen. The aorta is; tortuous. There are degenerative changes in the thoracic spine.; ; Impression:; ; CHF pattern with moderate interstitial pulmonary edema.; ; ; Signed by; Froilan Lopez MD 12/11/2016 10:24 A; Radiology Order: CT Chest Angio R/O PE Test: CT Chest Angio R/O PE REASON FOR EXAMINATION: Chest Pain; CT PULMONARY ANGIOGRAM, WITH IV CONTRAST; ; HISTORY: Chest pain.; ; COMPARISON STUDIES: Comparison is made with today's chest x-ray. No prior CTs.; ; CONTRAST DOSE: 75 mL of Isovue-370 are administered intravenously.; ; CT TECHNIQUE: Helical scanning is acquired and overlapping 1.5 mm and contiguous; 3 mm axial images are reformatted. In addition, a 3D work station is deployed to; generate thick slab maximum intensity projection images in sagittal and coronal; imaging projections. I am informed by the technologist that there was a brief; delay in scan initiation after contrast, due to technical difficulty.; ; CT PULMONARY ANGIOGRAPHIC FINDINGS: There is fair opacification of the pulmonary; arterial tree. There is no CT evidence of pulmonary embolism. The study is felt; to be diagnostic. There is also excellent opacification of the thoracic aorta; which enhances homogeneously and is normal in caliber. Vascular calcification is; noted. There is left coronary artery and right coronary artery vascular; calcification as well. Cardiomegaly is observed. There is a small quantity of; right pleural fluid. There are granulomatous calcifications in the right middle; lobe. Granulomatous lymph node calcifications are seen in the subcarinal region.; There are scattered right hilar and pretracheal lymph nodes. The largest of; these is a triangular-shaped lymph node in the precarinal region measuring 1.5 x; 1.4 cm. A granulomatous lymph node calcification is seen in the left hilus is; well. There is a left lower lobe pulmonary granuloma. Some fissural thickening; is seen in the major fissure on the right. There is interstitial edema pattern; in the bases, right more so than left with Sushma B lines. No pulmonary mass; lesion is seen. The visualized upper abdominal structures are unremarkable. No; bony destructive lesion is seen.; ; IMPRESSION:; ; 1. No CT evidence of pulmonary embolism.; ; 2. Cardiomegaly, small right pleural effusion, and mild interstitial edema; pattern consistent with CHF.; ; 3. Coronary artery vascular calcification.; ; 4. Old granulomatous calcific residuals.; ; 5. 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; : 1945 Requested By: KARLA Sheikh; Order Number: [id number] Reading MD: Angie Hartman; Measurements; Intervals [place]; Rate: 78 P: 13; WI: 219 QRS: 69; QRSD: 111 T: 106; QT: 392; QTc: 448; Interpretive Statements; SINUS RHYTHM WITH FIRST DEGREE AV BLOCK WITH FREQUENT VENTRICULAR PREMATURE; COMPLEXES; POSSIBLE LEFT ATRIAL ENLARGEMENT; LOW QRS VOLTAGE IN EXTREMITY LEADS; MODERATE INTRAVENTRICULAR CONDUCTION DELAY; ST DEVIATION AND MODERATE T-WAVE ABNORMALITY, CONSIDER LATERAL ISCHEMIA; ; CW 12/11/16 - RATE DECREASED; NONSPECIFIC ST T WAVE CHANGES; Electronically Signed On 12-12-2016 12:44:42 EST by Angie Hartman; Radiology Order: EKG-ADULT Test: EKG-ADULT REASON FOR EXAMINATION: Chest Pain; Stationary ECG Study; [facility] ED; ; Test Date: 2016-12-11; Pat Name: GARCÍA PERES Department:; Room: -; 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: leah; : 1945 Requested By: KARLA Sheikh; Order Number: [id number] Reading MD: Angie Hartman; Measurements; Intervals [place]; Rate: 79 P: 58; WI: 252 QRS: 65; QRSD: 112 T: 100; QT: 404; QTc: 465; Interpretive Statements; SINUS RHYTHM WITH FIRST DEGREE AV BLOCK WITH FREQUENT VENTRICULAR PREMATURE; COMPLEXES; POSSIBLE LEFT ATRIAL ENLARGEMENT; MODERATE INTRAVENTRICULAR CONDUCTION DELAY; ST DEVIATION AND MODERATE T-WAVE ABNORMALITY, CONSIDER LATERAL ISCHEMIA; DELAYED R WAVE PROGRESSION; LOW QRS VOLTAGES LIMB LEAD; ; CW 12/11/16 - RATE SIMILAR; SIMILAR MORPHOLOGY; ; ; Electronically Signed On 12-12-2016 12:46:33 EST by Angie Hartman; Outcome: 11:25 Discharge Assessment: Patient awake, alert and oriented x 3. No cognitive and/or cjh functional deficits noted. Patient verbalized understanding of disposition instructions. patient administered narcotics - no. The following High Risk Discharge criteria are identified: None. Transferred to [facility]. by EMS ground [facility]. critical. CT Study completed. Property :Personal belongings accompany Pt. 12:20 ER care complete, transfer ordered by Provider. fg 13:16 Patient left the ED. [facility] Signatures: Dispatcher [employer] EDMS Katherine, Cathryn, Reg Reg gb Gaetano, Astrid, Reg Reg lg Jessica Mandujano RN RN hs1 Claudine Terrell, FACS TEACHER FACS TEACHER ct3 Taryn Villaseñor,RN RN pml Catherine Rapp dem1 Rea DianeRN RN js13 Meli FloresRN RN [facility] Tina Padron mm15 Arnold FloresRN RN mb9 Karla Walker MD MD Amadeo Pearson RN ml6 Corrections: (The following items were deleted from the chart) 09:01 08:48 Cardiovascular: Chest pain is described as vague, radiates Does not radiate. js13 episodes are intermittent began 1 hour prior to arrival js13 11:46 11:44 MAGNESIUM LEVEL+LAB sent. 9 EDMS 11:46 11:44 PHOSPHOROUS LEVEL+LAB sent. [facility] EDMS 13:15 13:09 BP 165 / 63; Pulse 83bpm; Resp 18bpm; Pulse Ox 99%; Temp 97.3F Temporal; 9 [facility] Chart Complete MTDD
--- NOTE | 2016-12-13 14:17 | EDDOCDS ---
Physician Documentation [facility] Name: García Peres Age: 71 yrs Sex: Male : 1945 Arrival Date: 12/11/2016 Time: 08:32 Bed 15 Private MD: Taj Mayes MD Disposition: 12/11/16 12:20 Transfer ordered to [facility]. Diagnosis are Non-ST elevation (NSTEMI) myocardial infarction, Chest pain, unspecified. - Reason for transfer: Higher level of care. - Accepting physician is Dr. Ching. - Condition is Critical. - Problem is new. - Symptoms are unchanged. Historical: - Allergies: no known allergies; - Home Meds: 1. torsemide Unknown oral 2. spironolactone Unknown Oral 3. carvedilol Unknown oral 4. Prinivil Unknown Oral 5. metoprolol tartrate Unknown Oral has not started yet* - PMHx: CHF; Hypertension; - PSHx: Appendectomy; - Social history: Smoking status: Patient states was never smoker of tobacco. No barriers to communication noted, The patient speaks fluent Anguillan, Speaks appropriately for age. - Family history: Not pertinent. - : The pt / caregiver states he / she is not on anticoagulants. Home medication list is obtained from family members. - Exposure Risk Screening:: None identified. Vital Signs: 12/11 08:44 BP 131 / 87; Pulse 107; Resp 20; Temp 97.2(TE); Pulse Ox 93% on R/A; Weight 83.91 kg / ct3 184.99 lbs (M); Height 6 ft. 0 in. (182.88 cm) (R); 08:56 BP 124 / 90 (auto/); 13 08:56 Pulse 102 MON; Resp 16; Pulse Ox 94% on R/A; 13 09:11 BP 126 / 87 (auto/); 13 09:11 Pulse 102 MON; Resp 16; Pulse Ox 96% on R/A; 09:26 BP 125 / 89 (auto/); 13 09:26 Pulse 102 MON; Resp 16; Pulse Ox 94% on R/A; 09:41 BP 121 / 86 (auto/); 13 09:41 Pulse 102 MON; Resp 16; Pulse Ox 95% on R/A; js13 09:56 BP 107 / 90 (auto/); js13 09:56 Pulse 98 MON; Resp 16; Pulse Ox 95% on R/A; js13 10:11 BP 97 / 69 (auto/); js13 10:11 Pulse 98 MON; Resp 16; Pulse Ox 96% on R/A; js13 10:26 BP 111 / 61 (auto/); js13 10:26 Pulse 96 MON; Resp 16; Pulse Ox 96% on R/A; js13 10:41 BP 108 / 64 (auto/); js13 10:41 Pulse 92 MON; Resp 16; Pulse Ox 97% on R/A; js13 10:56 BP 114 / 69 (auto/); js13 10:56 Pulse 86 MON; Resp 16; Pulse Ox 98% on R/A; js13 11:11 Pulse 82 MON; Pulse Ox 95% ; cjh 11:11 BP 108 / 62 (auto/); cjh 11:25 Pulse 88 MON; Pulse Ox 96% ; cjh 11:26 BP 115 / 77 (auto/); cjh 11:40 Pulse 84 MON; Pulse Ox 95% ; cjh 11:41 BP 110 / 68 (auto/); cjh 11:55 Pulse 82 MON; Pulse Ox 96% ; cjh 11:56 BP 127 / 62 (auto/); cjh 12:10 Pulse 76 MON; Pulse Ox 96% ; cjh 12:11 BP 111 / 63 (auto/); cjh 12:25 Pulse 70 MON; Pulse Ox 97% ; cjh 12:26 BP 93 / 52 (auto/); cjh 12:40 Pulse 86 MON; Pulse Ox 95% ; cjh 12:41 BP 119 / 79 (auto/); cjh 12:52 Pulse 90 MON; Pulse Ox 96% ; cjh 12:53 BP 125 / 71 (auto/); cjh 12:55 Pulse 78 MON; Pulse Ox 95% ; cjh 12:56 BP 96 / 68 (auto/); cjh 13:07 Pulse 82 MON; Pulse Ox 96% ; cjh 13:07 BP 165 / 63 (auto/); cjh 13:11 BP 165 / 63; Pulse 83; Resp 18; Temp 97.3(TE); Pulse Ox 99% ; cjh 08:44 Body Mass Index 25.09 (83.91 kg, 182.88 cm) ct3 MDM: 08:37 ECG WITH READING ER PHYS+CARDIAG ordered. EDMS 08:42 Aspirin Chewable Tablet 324 mg PO once ordered. fg 08:42 Day Haul Youth Supervisor/Pulse Ox/q 30 min VS ordered. fg 08:42 IV Saline Lock ordered. fg 08:42 Rhythm Strip to chart ordered. fg 08:42 Undress patient appropriately for examination ordered. fg 08:43 B-Type Natiuretic Peptide Ordered. EDMS 08:43 Basic Metabolic Profile Ordered. EDMS 08:43 CBC with Diff Ordered. EDMS 08:43 Cardiac Injury Profile Ordered. EDMS 08:43 Prothrombin Time Profile\E\INR Ordered. EDMS 08:43 Troponin Ordered. EDMS 08:44 portable chest Ordered. EDMS 09:22 Financial registration complete. lg 09:22 [facility] Payment Agreement was scanned into [employer] and attached to record. lg 10:17 Repeat EKG (put time details section) ordered. fg 10:18 Cardiac Marker Panel: 1130 Ordered. EDMS 10:18 Troponin: 1130 Ordered. EDMS 10:18 CT Chest Angio R/O PE Ordered. EDMS 10:25 Repeat EKG (put time details section) complete. lbd 10:29 ECG WITH READING ER PHYS ordered. EDMS 11:35 ECG WITH READING ER PHYS+CARDIAG ordered. EDMS 11:45 MAGNESIUM LEVEL Ordered. EDMS 11:45 PHOSPHOROUS LEVEL Ordered. EDMS 12:24 Nitro-Bid Ointment 2 % 0.5 inches Transdermal once ordered. fg 12:24 Plavix - Clopidogrel 300 mg PO once ordered. fg 12:24 heparin (Thrombolytic Protocol, 12 units/kg/hr)) 51950 units IV at 12 units/kg/hr once; fg Max. dose 1000units/hr. 990 units/hour ordered. 12:24 heparin (Thrombolytic Protocol, 60 units/kg)) 60 units/kg IVP once; max 4000 units. fg 400o units ordered. 12/12 17:03 T-Sheet-- Draft Copy was scanned into [employer] and attached to record. gb 17:03 ECG/EKG was scanned into [employer] and attached to record. gb Administered Medications: 12/11 09:04 Drug: Aspirin 324 mg [aspirin 81 mg chewable tablet (4 tabs)] Route: PO; js13 12:59 Drug: heparin (Thrombolytic Protocol, 12 units/kg/hr)) 13824 units {Co-Signature: ml6 alley (Amadeo Pearson RN).} Route: IV; Rate: 12 units/kg/hr; Site: left antecubital; 12:59 Drug: heparin (Thrombolytic Protocol, 60 units/kg)) 5034.6 units {Co-Signature: ml6 alley (Amadeo Pearson RN).} Route: IVP; Site: left antecubital; 13:00 Drug: Plavix - Clopidogrel 300 mg [clopidogrel 75 mg tablet (4 tabs)] Route: PO; [facility] 13:49 Not Given (cancel per VO Provider): Nitro-Bid Ointment 2 % 0.5 inches Transdermal once [facility] Signatures: Dispatcher [employer] EDRosibel Perry, Labor Relations Teacher Unit lbd Cathryn Murphy, Reg Reg gb Astrid Salter, Reg Reg lg Jessica Mandujano RN RN hs1 Rea DianeRN RN js13 Meli FloresRN RN [facility] Karla Walker MD MD Amadeo Pearson RN ml6 The chart was reviewed and I authenticate all verbal orders and agree with the evaluation and treatment provided.Corrections: (The following items were deleted from the chart) 11:46 11:35 MAGNESIUM LEVEL+LAB ordered. EDMS EDMS 11:46 11:35 PHOSPHOROUS LEVEL+LAB ordered. EDMS EDMS Attachments: 09:22 [facility] Payment Agreement lg 12/12 17:03 T-Sheet-- Draft Copy 17:03 ECG/EKG Chart Complete MTDD
--- NOTE | 2016-12-13 14:17 | EDDOCDS ---
Physician Documentation [facility] Name: García Peres Age: 71 yrs Sex: Male : 1945 Arrival Date: 12/11/2016 Time: 08:32 Bed 15 Private MD: Taj Mayes MD Disposition: 12/11/16 12:20 Transfer ordered to [facility]. Diagnosis are Non-ST elevation (NSTEMI) myocardial infarction, Chest pain, unspecified. - Reason for transfer: Higher level of care. - Accepting physician is Dr. Ching. - Condition is Critical. - Problem is new. - Symptoms are unchanged. Historical: - Allergies: no known allergies; - Home Meds: 1. torsemide Unknown oral 2. spironolactone Unknown Oral 3. carvedilol Unknown oral 4. Prinivil Unknown Oral 5. metoprolol tartrate Unknown Oral has not started yet* - PMHx: CHF; Hypertension; - PSHx: Appendectomy; - Social history: Smoking status: Patient states was never smoker of tobacco. No barriers to communication noted, The patient speaks fluent Nauruan, Speaks appropriately for age. - Family history: Not pertinent. - : The pt / caregiver states he / she is not on anticoagulants. Home medication list is obtained from family members. - Exposure Risk Screening:: None identified. Vital Signs: 12/11 08:44 BP 131 / 87; Pulse 107; Resp 20; Temp 97.2(TE); Pulse Ox 93% on R/A; Weight 83.91 kg / ct3 184.99 lbs (M); Height 6 ft. 0 in. (182.88 cm) (R); 08:56 BP 124 / 90 (auto/); 13 08:56 Pulse 102 MON; Resp 16; Pulse Ox 94% on R/A; 13 09:11 BP 126 / 87 (auto/); 13 09:11 Pulse 102 MON; Resp 16; Pulse Ox 96% on R/A; 09:26 BP 125 / 89 (auto/); 13 09:26 Pulse 102 MON; Resp 16; Pulse Ox 94% on R/A; 09:41 BP 121 / 86 (auto/); 13 09:41 Pulse 102 MON; Resp 16; Pulse Ox 95% on R/A; js13 09:56 BP 107 / 90 (auto/); js13 09:56 Pulse 98 MON; Resp 16; Pulse Ox 95% on R/A; js13 10:11 BP 97 / 69 (auto/); js13 10:11 Pulse 98 MON; Resp 16; Pulse Ox 96% on R/A; js13 10:26 BP 111 / 61 (auto/); js13 10:26 Pulse 96 MON; Resp 16; Pulse Ox 96% on R/A; js13 10:41 BP 108 / 64 (auto/); js13 10:41 Pulse 92 MON; Resp 16; Pulse Ox 97% on R/A; js13 10:56 BP 114 / 69 (auto/); js13 10:56 Pulse 86 MON; Resp 16; Pulse Ox 98% on R/A; js13 11:11 Pulse 82 MON; Pulse Ox 95% ; cjh 11:11 BP 108 / 62 (auto/); cjh 11:25 Pulse 88 MON; Pulse Ox 96% ; cjh 11:26 BP 115 / 77 (auto/); cjh 11:40 Pulse 84 MON; Pulse Ox 95% ; cjh 11:41 BP 110 / 68 (auto/); cjh 11:55 Pulse 82 MON; Pulse Ox 96% ; cjh 11:56 BP 127 / 62 (auto/); cjh 12:10 Pulse 76 MON; Pulse Ox 96% ; cjh 12:11 BP 111 / 63 (auto/); cjh 12:25 Pulse 70 MON; Pulse Ox 97% ; cjh 12:26 BP 93 / 52 (auto/); cjh 12:40 Pulse 86 MON; Pulse Ox 95% ; cjh 12:41 BP 119 / 79 (auto/); cjh 12:52 Pulse 90 MON; Pulse Ox 96% ; cjh 12:53 BP 125 / 71 (auto/); cjh 12:55 Pulse 78 MON; Pulse Ox 95% ; cjh 12:56 BP 96 / 68 (auto/); cjh 13:07 Pulse 82 MON; Pulse Ox 96% ; cjh 13:07 BP 165 / 63 (auto/); cjh 13:11 BP 165 / 63; Pulse 83; Resp 18; Temp 97.3(TE); Pulse Ox 99% ; cjh 08:44 Body Mass Index 25.09 (83.91 kg, 182.88 cm) ct3 MDM: 08:37 ECG WITH READING ER PHYS+CARDIAG ordered. EDMS 08:42 Aspirin Chewable Tablet 324 mg PO once ordered. fg 08:42 Store Keeper/Pulse Ox/q 30 min VS ordered. fg 08:42 IV Saline Lock ordered. fg 08:42 Rhythm Strip to chart ordered. fg 08:42 Undress patient appropriately for examination ordered. fg 08:43 B-Type Natiuretic Peptide Ordered. EDMS 08:43 Basic Metabolic Profile Ordered. EDMS 08:43 CBC with Diff Ordered. EDMS 08:43 Cardiac Injury Profile Ordered. EDMS 08:43 Prothrombin Time Profile\E\INR Ordered. EDMS 08:43 Troponin Ordered. EDMS 08:44 portable chest Ordered. EDMS 09:22 Financial registration complete. lg 09:22 [facility] Payment Agreement was scanned into [employer] and attached to record. lg 10:17 Repeat EKG (put time details section) ordered. fg 10:18 Cardiac Marker Panel: 1130 Ordered. EDMS 10:18 Troponin: 1130 Ordered. EDMS 10:18 CT Chest Angio R/O PE Ordered. EDMS 10:25 Repeat EKG (put time details section) complete. lbd 10:29 ECG WITH READING ER PHYS ordered. EDMS 11:35 ECG WITH READING ER PHYS+CARDIAG ordered. EDMS 11:45 MAGNESIUM LEVEL Ordered. EDMS 11:45 PHOSPHOROUS LEVEL Ordered. EDMS 12:24 Nitro-Bid Ointment 2 % 0.5 inches Transdermal once ordered. fg 12:24 Plavix - Clopidogrel 300 mg PO once ordered. fg 12:24 heparin (Thrombolytic Protocol, 12 units/kg/hr)) 56850 units IV at 12 units/kg/hr once; fg Max. dose 1000units/hr. 990 units/hour ordered. 12:24 heparin (Thrombolytic Protocol, 60 units/kg)) 60 units/kg IVP once; max 4000 units. fg 400o units ordered. 12/12 17:03 T-Sheet-- Draft Copy was scanned into [employer] and attached to record. gb 17:03 ECG/EKG was scanned into [employer] and attached to record. gb Administered Medications: 12/11 09:04 Drug: Aspirin 324 mg [aspirin 81 mg chewable tablet (4 tabs)] Route: PO; js13 12:59 Drug: heparin (Thrombolytic Protocol, 12 units/kg/hr)) 88711 units {Co-Signature: ml6 alley (Amadeo Pearson RN).} Route: IV; Rate: 12 units/kg/hr; Site: left antecubital; 12:59 Drug: heparin (Thrombolytic Protocol, 60 units/kg)) 5034.6 units {Co-Signature: ml6 alley (Amadeo Pearson RN).} Route: IVP; Site: left antecubital; 13:00 Drug: Plavix - Clopidogrel 300 mg [clopidogrel 75 mg tablet (4 tabs)] Route: PO; [facility] 13:49 Not Given (cancel per VO Provider): Nitro-Bid Ointment 2 % 0.5 inches Transdermal once [facility] Signatures: Dispatcher [employer] EDRosibel Perry, Sessions Clerk Unit lbd Cathryn Murphy, Reg Reg gb Astrid Salter, Reg Reg lg Jessica Mandujano RN RN hs1 Rea DianeRN RN js13 Meli FloresRN RN [facility] Karla Walker MD MD Amadeo Pearson RN ml6 The chart was reviewed and I authenticate all verbal orders and agree with the evaluation and treatment provided.Corrections: (The following items were deleted from the chart) 11:46 11:35 MAGNESIUM LEVEL+LAB ordered. EDMS EDMS 11:46 11:35 PHOSPHOROUS LEVEL+LAB ordered. EDMS EDMS Attachments: 09:22 [facility] Payment Agreement lg 12/12 17:03 T-Sheet-- Draft Copy 17:03 ECG/EKG Chart Complete MTDD
== END 2016-12-11 13:16 | disposition short-term general hospital (02) ==
LOC: M ED 08:32
DX: I21.4 Non-ST elevation (NSTEMI) myocardial infarction (principal); I50.9 Heart failure, unspecified; I10 Essential (primary) hypertension; Z79.899 Other long term (current) drug therapy
CPT/HCPCS: 36415; 71010; 71275; 80048; 82550; 82553; 83735; 83880; 84100; 85025; 85610; 93005; 93041; 96374; 99285; Q9967

== ENCOUNTER → 2016-12-24 | Outpatient (REF) | payer OTHER, SELFPAY ==
[2016-12-24 12:41] LABS: ANION GAP 8 MEQ/L (8-16); BLOOD UREA NITROGEN 12 MG/DL (7-18); CALCIUM LEVEL 8.8 MG/DL (8.8-10.2); CARBON DIOXIDE LEVEL 28 MEQ/L (21-32); CHLORIDE LEVEL 103 MEQ/L (98-107); CREATININE FOR GFR 0.71 MG/DL (0.70-1.30); GLOMERULAR FILTRATION RATE > 60.0 (>42); GLUCOSE, FASTING 178 MG/DL (83-110); POTASSIUM SERUM 4.6 MEQ/L (3.5-5.1); SODIUM LEVEL 139 MEQ/L (136-145)
[2016-12-24 12:53] LABS: MEAN CORPUSCULAR HEMOGLOBIN 30.2 pg (27.0-33.0); MEAN CORPUSCULAR HGB CONC 33.2 g/dl (32.0-36.5); RED CELL DISTRIBUTION WIDTH 13.9 % (11.5-14.5); WHITE BLOOD COUNT 5.3 K/mm3 (4.0-10.0)
== END ==
LOC: M SFHCADAM 07:55
PROVIDERS: ATTEND Family Medicine
DX: I50.20 Unspecified systolic (congestive) heart failure (principal)

== ENCOUNTER → 2016-12-31 | Outpatient (REF) | payer OTHER ==
[2016-12-31 12:25] LABS: MEAN CORPUSCULAR HEMOGLOBIN 30.3 pg (27.0-33.0); MEAN CORPUSCULAR HGB CONC 32.6 g/dl (32.0-36.5); MEAN CORPUSCULAR VOLUME 93.1 fl (80.0-96.0); RED CELL DISTRIBUTION WIDTH 14.2 % (11.5-14.5); WHITE BLOOD COUNT 7.1 K/mm3 (4.0-10.0)
[2016-12-31 12:36] LABS: ALBUMIN 3.4 GM/DL (3.2-5.2); ALBUMIN/GLOBULIN RATIO 1.06 (1.00-1.93); ALKALINE PHOSPHATASE 163 U/L (45-117); ALT/SGPT 19 U/L (12-78); ANION GAP 7 MEQ/L (8-16); AST/SGOT 20 U/L (15-37); BILIRUBIN,TOTAL 0.7 MG/DL (0.2-1.0); BLOOD UREA NITROGEN 17 MG/DL (7-18); CALCIUM LEVEL 8.7 MG/DL (8.8-10.2); CARBON DIOXIDE LEVEL 29 MEQ/L (21-32); CHLORIDE LEVEL 102 MEQ/L (98-107); CHOLESTEROL LEVEL 127 MG/DL (<200); FERRITIN 346 NG/ML (26-388); GLOMERULAR FILTRATION RATE > 60.0 (>42); GLUCOSE, FASTING 136 MG/DL (83-110); PERCENT SATURATION 35.5 % (19.7-37.4); POTASSIUM SERUM 4.8 MEQ/L (3.5-5.1); SODIUM LEVEL 138 MEQ/L (136-145); TOTAL IRON BINDING CAPACITY 259 UG/DL (250-450); TOTAL PROTEIN 6.6 GM/DL (6.4-8.2); TRIGLYCERIDES LEVEL 93 MG/DL (<150)
== END ==
LOC: M SFHCADAM 08:15
PROVIDERS: ATTEND Physician Assistant
DX: D64.9 Anemia, unspecified (principal); I50.20 Unspecified systolic (congestive) heart failure; E11.319 Type 2 diabetes mellitus with unspecified diabetic retinopathy without macular edema; Z98.890 Other specified postprocedural states

== ENCOUNTER → 2017-01-13 | Outpatient (CLI) | payer OTHER, SELFPAY ==
--- NOTE | 2017-01-13 20:31 | REP ---
CHEST X-RAY PA AND LATERAL: 01/13/2017. Clinical history: Acute upper respiratory infection, unspecified. Findings: Sternotomy wires are again seen with some mediastinal clips. Appearance unchanged. Some mild prominence of the left atrium and left ventricle with borderline cardiomegaly on the PA view with transverse diameter. The vascular congestion is much improved compared to the previous chest x-ray in October. There is no pleural effusion or definite infiltrate. There is peribronchial thickening that might reflect reactive airway disease or bronchitis. The aorta is calcified, mildly tortuous but without aneurysm and is unchanged. Bony thorax shows marginal osteophytes throughout without acute compression deformity. No free air. Impression: 1. Mild cardiomegaly with left atrial and ventricular enlargement. There is a sternotomy and mediastinal clips are unchanged. 2. Improved vascular congestion from the previous study with some underlying mild fibrosis. 3. Calcified tortuous aorta without aneurysm. Signed by Lalit Montemayor MD 01/14/2017 09:13 A
== END ==
LOC: M ADAMS 10:32
PROVIDERS: ATTEND Physician Assistant
DX: J06.9 Acute upper respiratory infection, unspecified (principal)

== ENCOUNTER 2017-02-26 12:48 | Outpatient (RCR) | payer SELFPAY | END 2017-02-28 | LOC: M CR 12:48 | PROVIDERS: ATTEND Internal Medicine Cardiovascular Disease | DX: Z51.89 Encounter for other specified aftercare (principal); Z95.1 Presence of aortocoronary bypass graft ==

== ENCOUNTER → 2017-03-31 | Outpatient (RCR) | payer SELFPAY | LOC: M CR 03-01 08:20 | PROVIDERS: ATTEND Internal Medicine Cardiovascular Disease | DX: Z51.89 Encounter for other specified aftercare (principal); Z95.1 Presence of aortocoronary bypass graft ==

== ENCOUNTER → 2017-04-27 | Outpatient (CLI) | payer SELFPAY ==
--- NOTE | 2017-04-27 11:15 | REP ---
Clinical: Cough. Technique: PA and lateral. Comparison: 01/13/2017. Findings: Mediastinum and cardiac silhouette stable. Prior sternotomy again noted. Lung stout demonstrate chronic stable interstitial changes. No obvious consolidation, effusion, or pneumothorax. Skeletal structures demonstrate age-related degenerative changes. Impression: Chronic stable changes similar to 01/13/2017. Subtle atelectasis cannot definitively be excluded. Signed by Jaren Bowers MD 04/27/2017 11:07 A
== END ==
LOC: M ADAMS 10:38
PROVIDERS: ATTEND Physician Assistant
DX: R05 Cough (principal)

== ENCOUNTER → 2017-07-07 | Outpatient (REF) | payer OTHER, SELFPAY ==
[~2017-07-07] MED LIST changes: +LISI2.5T4 PO; -LISI25TA PO
[2017-07-07 13:44] LABS: ALBUMIN 3.6 GM/DL (3.2-5.2); ALBUMIN/GLOBULIN RATIO 1.24 (1.00-1.93); ALKALINE PHOSPHATASE 69 U/L (45-117); ALT/SGPT 21 U/L (12-78); ANION GAP 8 MEQ/L (8-16); AST/SGOT 19 U/L (15-37); BILIRUBIN,TOTAL 0.7 MG/DL (0.2-1.0); BLOOD UREA NITROGEN 17 MG/DL (7-18); CALCIUM LEVEL 8.8 MG/DL (8.8-10.2); CARBON DIOXIDE LEVEL 27 MEQ/L (21-32); CHLORIDE LEVEL 106 MEQ/L (98-107); CREATININE FOR GFR 0.69 MG/DL (0.70-1.30); GLOMERULAR FILTRATION RATE > 60.0 (>42); GLUCOSE, FASTING 109 MG/DL (83-110); POTASSIUM SERUM 4.7 MEQ/L (3.5-5.1); SODIUM LEVEL 141 MEQ/L (136-145); TOTAL PROTEIN 6.5 GM/DL (6.4-8.2)
[2017-07-07 13:45] LABS: MEAN CORPUSCULAR HEMOGLOBIN 32.4 pg (27.0-33.0); MEAN CORPUSCULAR HGB CONC 35.2 g/dl (32.0-36.5); RED CELL DISTRIBUTION WIDTH 12.7 % (11.5-14.5); WHITE BLOOD COUNT 4.4 K/mm3 (4.0-10.0)
== END ==
LOC: M SFHCADAM 07:14
PROVIDERS: ATTEND Physician Assistant
DX: E11.319 Type 2 diabetes mellitus with unspecified diabetic retinopathy without macular edema (principal); I50.20 Unspecified systolic (congestive) heart failure

== ENCOUNTER → 2018-01-07 | Outpatient (CLI) | payer SELFPAY, OTHER | LOC: M ADAMS 15:16 | DX: M54.2 Cervicalgia (principal) ==

== ENCOUNTER → 2018-01-13 | Outpatient (REF) | payer SELFPAY, OTHER ==
[2018-01-13 12:39] LABS: HEMATOCRIT 39.3 % (42.0-52.0); MEAN CORPUSCULAR HEMOGLOBIN 30.2 pg (27.0-33.0); MEAN CORPUSCULAR HGB CONC 33.1 g/dl (32.0-36.5); MEAN CORPUSCULAR VOLUME 91.4 fl (80.0-96.0); PLATELET COUNT, AUTOMATED 187 10^3/uL (150-450); WHITE BLOOD COUNT 5.8 10^3/uL (4.0-10.0)
[2018-01-13 13:09] LABS: MALB URINE SIEMENS 16.5 MG/L; MAU/CREAT RATIO 10.1 MCG/MG (0.0-30.0)
[2018-01-13 13:13] LABS: ALBUMIN 3.9 GM/DL (3.2-5.2); ALKALINE PHOSPHATASE 69 U/L (45-117); ALT/SGPT 29 U/L (12-78); ANION GAP 7 MEQ/L (8-16); AST/SGOT 25 U/L (7-37); BILIRUBIN,TOTAL 0.5 MG/DL (0.2-1.0); BLOOD UREA NITROGEN 22 MG/DL (7-18); CALCIUM LEVEL 9.1 MG/DL (8.8-10.2); CARBON DIOXIDE LEVEL 29 MEQ/L (21-32); CHLORIDE LEVEL 106 MEQ/L (98-107); CREATININE FOR GFR 0.71 MG/DL (0.70-1.30); GLOMERULAR FILTRATION RATE > 60.0 (>42); GLUCOSE, FASTING 76 MG/DL (70-100); MAGNESIUM LEVEL 2.1 MG/DL (1.8-2.4); POTASSIUM SERUM 4.7 MEQ/L (3.5-5.1); SODIUM LEVEL 142 MEQ/L (136-145); TOTAL PROTEIN 6.9 GM/DL (6.4-8.2)
[2018-01-13 13:46] LABS: ESTIMATED AVERAGE GLUCOSE 137 MG/DL (60-110); HEMOGLOBIN A1c 6.4 %
== END ==
LOC: M SFHCADAM 10:14
DX: E11.319 Type 2 diabetes mellitus with unspecified diabetic retinopathy without macular edema (principal)
CPT/HCPCS: 83735

== ENCOUNTER → 2018-01-17 | Outpatient (CLI) | payer SELFPAY, OTHER | LOC: M ADAMS 19:10 | DX: M77.31 Calcaneal spur, right foot (principal) | CPT/HCPCS: 73610 ==

== ENCOUNTER → 2018-07-29 | Outpatient (CLI) | payer SELFPAY | LOC: M ADAMS 14:27 | DX: M51.37 Other intervertebral disc degeneration, lumbosacral region (principal) | CPT/HCPCS: 72100 ==

== ENCOUNTER → 2018-09-08 | Outpatient (REF) | payer SELFPAY, OTHER ==
[2018-09-08 13:15] LABS: HEMATOCRIT 42.2 % (42.0-52.0); MEAN CORPUSCULAR HGB CONC 33.2 g/dl (32.0-36.5); MEAN CORPUSCULAR VOLUME 93.6 fl (80.0-96.0); PLATELET COUNT, AUTOMATED 193 10^3/uL (150-450); RED BLOOD COUNT 4.51 10^6/uL (4.30-6.10); RED CELL DISTRIBUTION WIDTH 12.9 % (11.5-14.5); WHITE BLOOD COUNT 5.7 10^3/uL (4.0-10.0)
[2018-09-08 13:23] LABS: C REACTIVE PROTEIN QUANTITATIV < 0.30 MG/DL (0.00-0.30)
[2018-09-08 17:09] LABS: ESTIMATED AVERAGE GLUCOSE 126 MG/DL (60-110)
== END ==
LOC: M SFHCADAM 08:01
DX: I50.20 Unspecified systolic (congestive) heart failure (principal); E11.319 Type 2 diabetes mellitus with unspecified diabetic retinopathy without macular edema

== ENCOUNTER → 2018-09-27 | Outpatient (REF) | payer SELFPAY, OTHER ==
[2018-09-27 19:33] LABS: ALBUMIN 3.7 GM/DL (3.2-5.2); ALBUMIN/GLOBULIN RATIO 1.23 (1.00-1.93); ALKALINE PHOSPHATASE 96 U/L (45-117); ALT/SGPT 20 U/L (12-78); ANION GAP 7 MEQ/L (8-16); AST/SGOT 19 U/L (7-37); BILIRUBIN,TOTAL 0.4 MG/DL (0.2-1.0); BLOOD UREA NITROGEN 25 MG/DL (7-18); CARBON DIOXIDE LEVEL 27 MEQ/L (21-32); CHLORIDE LEVEL 102 MEQ/L (98-107); CREATININE FOR GFR 0.95 MG/DL (0.70-1.30); GLOMERULAR FILTRATION RATE > 60.0 (>42); GLUCOSE, FASTING 224 MG/DL (70-100); MAGNESIUM LEVEL 2.1 MG/DL (1.8-2.4); POTASSIUM SERUM 4.8 MEQ/L (3.5-5.1); SODIUM LEVEL 136 MEQ/L (136-145); TOTAL PROTEIN 6.7 GM/DL (6.4-8.2)
== END ==
LOC: M SFHCADAM 16:19
DX: I50.20 Unspecified systolic (congestive) heart failure (principal); I49.9 Cardiac arrhythmia, unspecified
CPT/HCPCS: 83735

== ENCOUNTER → 2019-08-07 | Outpatient (REF) | payer OTHER, SELFPAY ==
[~2019-08-07] MED LIST changes: -ASPI1TAB PO; +ASPI81TA26 PO; -LISI2.5T4 PO; +LISI2.5T76 PO
[2019-08-07 13:49] LABS: HEMATOCRIT 42.1 % (42.0-52.0); HEMOGLOBIN 13.8 g/dl (13.5-17.5); MEAN CORPUSCULAR HEMOGLOBIN 31.2 pg (27.0-33.0); MEAN CORPUSCULAR HGB CONC 32.8 g/dl (32.0-36.5); PLATELET COUNT, AUTOMATED 162 10^3/uL (150-450); RED BLOOD COUNT 4.43 10^6/uL (4.30-6.10); WHITE BLOOD COUNT 4.9 10^3/uL (4.0-10.0)
[2019-08-07 13:56] LABS: ALBUMIN 3.7 GM/DL (3.2-5.2); ALT/SGPT 23 U/L (12-78); BILIRUBIN,TOTAL 0.6 MG/DL (0.2-1.0); BLOOD UREA NITROGEN 17 MG/DL (7-18); CALCIUM LEVEL 9.2 MG/DL (8.8-10.2); CARBON DIOXIDE LEVEL 29 MEQ/L (21-32); CHLORIDE LEVEL 107 MEQ/L (98-107); CREATININE FOR GFR 0.82 MG/DL (0.70-1.30); GLOMERULAR FILTRATION RATE > 60.0 (>42); GLUCOSE, FASTING 42 MG/DL (70-100); POTASSIUM SERUM 4.3 MEQ/L (3.5-5.1); SODIUM LEVEL 140 MEQ/L (136-145); TOTAL PROTEIN 7.2 GM/DL (6.4-8.2)
[2019-08-07 14:08] LABS: HEMOGLOBIN A1c 5.9 %
== END ==
LOC: M SFHCADAM 07:54
PROVIDERS: ATTEND Physician Assistant
DX: I50.20 Unspecified systolic (congestive) heart failure (principal); E11.9 Type 2 diabetes mellitus without complications

== ENCOUNTER → 2019-10-17 | Outpatient (REF) | payer OTHER ==
[2019-10-17 19:38] LABS: HEMATOCRIT 42.6 % (42.0-52.0); HEMOGLOBIN 13.5 g/dl (13.5-17.5); MEAN CORPUSCULAR HEMOGLOBIN 30.1 pg (27.0-33.0); MEAN CORPUSCULAR HGB CONC 31.7 g/dl (32.0-36.5); MEAN CORPUSCULAR VOLUME 94.9 fl (80.0-96.0); PLATELET COUNT, AUTOMATED 202 10^3/uL (150-450); RED BLOOD COUNT 4.49 10^6/uL (4.30-6.10); WHITE BLOOD COUNT 5.5 10^3/uL (4.0-10.0)
[2019-10-17 19:42] LABS: ALBUMIN 3.5 GM/DL (3.2-5.2); ALT/SGPT 20 U/L (12-78); BILIRUBIN,TOTAL 0.6 MG/DL (0.2-1.0); BLOOD UREA NITROGEN 21 MG/DL (7-18); CALCIUM LEVEL 9.1 MG/DL (8.8-10.2); CARBON DIOXIDE LEVEL 30 MEQ/L (21-32); CHLORIDE LEVEL 103 MEQ/L (98-107); CREATININE FOR GFR 0.79 MG/DL (0.70-1.30); GLOMERULAR FILTRATION RATE > 60.0 (>42); GLUCOSE, FASTING 119 MG/DL (70-100); MAGNESIUM LEVEL 2.1 MG/DL (1.8-2.4); POTASSIUM SERUM 4.5 MEQ/L (3.5-5.1); SODIUM LEVEL 138 MEQ/L (136-145)
== END ==
LOC: M SFHCADAM 16:34
PROVIDERS: ATTEND Physician Assistant
DX: I50.20 Unspecified systolic (congestive) heart failure (principal); I49.9 Cardiac arrhythmia, unspecified

== ENCOUNTER → 2019-10-23 | Outpatient (REF) | payer OTHER ==
[2019-10-23 13:49] LABS: BLOOD UREA NITROGEN 17 MG/DL (7-18); CALCIUM LEVEL 8.9 MG/DL (8.8-10.2); CARBON DIOXIDE LEVEL 29 MEQ/L (21-32); CHLORIDE LEVEL 103 MEQ/L (98-107); CREATININE FOR GFR 0.93 MG/DL (0.70-1.30); GLOMERULAR FILTRATION RATE > 60.0 (>42); GLUCOSE, FASTING 105 MG/DL (70-100); POTASSIUM SERUM 4.1 MEQ/L (3.5-5.1); SODIUM LEVEL 138 MEQ/L (136-145)
== END ==
LOC: M SFHCADAM 08:32
PROVIDERS: ATTEND Physician Assistant Medical
DX: I50.20 Unspecified systolic (congestive) heart failure (principal)

== ENCOUNTER → 2019-11-20 | Outpatient (CLI) | payer SELFPAY ==
--- NOTE | 2019-11-21 01:42 | REP ---
Clinical: Acute bronchitis. Technique: PA and lateral. Comparison: 04/27/2017. Findings: Prior sternotomy. Cardiac silhouette is normal. Lung stout demonstrate coarsened markings which may reflect acute bronchitis and/or chronic reactive airway disease. Subtle right basilar atelectasis cannot be excluded. No effusion. No pneumothorax. Skeletal structures intact. Impression: Chronic and possible acute findings as described above. Electronically Signed by Jaren Bowers MD 11/21/2019 01:35 A
== END ==
LOC: M ADAMS 16:42
PROVIDERS: ATTEND Physician Assistant Medical
DX: J20.9 Acute bronchitis, unspecified (principal)

== ENCOUNTER 2019-11-24 14:03 | Emergency (ER) | payer SELFPAY ==
[~2019-11-24] VITALS: Ht 182.9 cm; Wt 94.1 kg
--- NOTE | 2019-11-24 14:35 | REP ---
Portable chest x-ray: Single view. History: Dyspnea and cough. Comparison chest x-ray: November 20, 2019. Findings: The patient is status post prior median sternotomy. The lungs are symmetrically aerated and free of infiltrate. Heart is not felt to be enlarged. Pulmonary vasculature is slightly cephalized unchanged. No pleural effusion is seen. No significant bony abnormality. Impression: Prior sternotomy. no acute disease. Electronically Signed by Froilan Lopez MD 11/24/2019 02:27 P
[2019-11-24 14:52] LABS: BASO % 0.2 % (0.0-1.0); EOS % 0.1 % (0.0-3.0); HEMATOCRIT 42.6 % (42.0-52.0); HEMOGLOBIN 14.2 g/dl (13.5-17.5); LYMPH # 1.2 10^3/uL (1.5-5.0); LYMPH % 15.3 % (24.0-44.0); MEAN CORPUSCULAR HEMOGLOBIN 30.4 pg (27.0-33.0); MEAN CORPUSCULAR HGB CONC 33.3 g/dl (32.0-36.5); MEAN CORPUSCULAR VOLUME 91.2 fl (80.0-96.0); MONO # 0.9 10^3/uL (0.0-0.8); MONO % 10.8 % (0.0-5.0); NEUTROPHILS # 5.9 10^3/uL (1.5-8.5); NEUTROPHILS % 73.4 % (36.0-66.0); PLATELET COUNT, AUTOMATED 176 10^3/uL (150-450); RED BLOOD COUNT 4.67 10^6/uL (4.30-6.10); WHITE BLOOD COUNT 8.1 10^3/uL (4.0-10.0)
[2019-11-24 15:23] LABS: ALBUMIN 3.5 GM/DL (3.2-5.2); ALT/SGPT 21 U/L (12-78); BILIRUBIN,DIRECT 0.2 MG/DL (0.0-0.2); BILIRUBIN,TOTAL 0.6 MG/DL (0.2-1.0); BLOOD UREA NITROGEN 34 MG/DL (7-18); CARBON DIOXIDE LEVEL 29 MEQ/L (21-32); CHLORIDE LEVEL 106 MEQ/L (98-107); CK-MB VALUE MASS 2.7 NG/ML (<3.6); CPK CREATINE PHOSPHOKINASE 73 U/L (39-308); CREATININE FOR GFR 0.89 MG/DL (0.70-1.30); GLOMERULAR FILTRATION RATE > 60.0 (>42); GLUCOSE, FASTING 117 MG/DL (70-100); MAGNESIUM LEVEL 2.1 MG/DL (1.8-2.4); NT-PRO BNP 3142 PG/ML (<450); POTASSIUM SERUM 4.3 MEQ/L (3.5-5.1); SODIUM LEVEL 141 MEQ/L (136-145); TOTAL PROTEIN 7.2 GM/DL (6.4-8.2); TROPONIN I < 0.02 NG/ML (< 0.10)
[2019-11-24 15:30] LABS: INR 1.13; PROTHROMBIN TIME 14.2 SECONDS (11.8-14.0)
[2019-11-24] MEDS ORDERED: ISOVUE-370 76% 100ML VIAL (Q9967) As Ordered ONE (15:34)
[2019-11-24] MEDS ORDERED: MAGN250T7 PO (15:38)
[2019-11-24] MEDS ORDERED: MUCI600T31 PO (15:38)
[2019-11-24] MEDS ORDERED: VITA-158 PO (15:38)
[2019-11-24] MEDS ORDERED: CARV12.5 PO (15:38)
[2019-11-24] MEDS ORDERED: FURO40TA2 PO (15:38)
[2019-11-24] MEDS ORDERED: LOSA25TA14 PO (15:38)
[2019-11-24] MEDS ORDERED: DOXY-350 PO (15:38)
[2019-11-24] MEDS ORDERED: PRED20TA PO (15:38)
[2019-11-24] MEDS ORDERED: IPRATROPIUM 0.5MG/ALBUTEROL 2.5MG INH SOL UD 3ML (DUONEB)(J7620) NEB ONE (15:45)
--- NOTE | 2019-11-24 16:35 | REP ---
CT of the chest with IV contrast, CT pulmonary angiography: Comparison is 12/11/2016. There are no emboli in the pulmonary trunk or central pulmonary arteries per there are no emboli in the pulmonary lobe or segment branches. There are no infiltrates or pleural effusions. There is mild dependent atelectasis. The thoracic aorta is unremarkable. Cardiac size is borderline enlarged. There is no pericardial effusion. There is coronary artery calcified atheroma. The visualized upper abdominal contents are unremarkable. Impression: There are no pulmonary emboli. There are no infiltrates or pleural effusions. No adenopathy or mass. Cardiac size is borderline enlarged. Electronically Signed by Ruperto Ontiveros MD 11/24/2019 04:27 P
[2019-11-24] MEDS ORDERED: EASYMIS17 XX (17:16)
[2019-11-24] MEDS ORDERED: ALBU83IN NEB (17:17)
[2019-11-24 18:00] VITALS: BP 123/58
--- NOTE | 2019-11-24 20:37 | ECGEPIP ---
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
== END 2019-11-24 18:15 | disposition home or self-care (01) ==
LOC: M ED 14:03
DX: B97.81 Human metapneumovirus as the cause of diseases classified elsewhere (principal); R06.2 Wheezing; R94.31 Abnormal electrocardiogram [ECG] [EKG]; E11.9 Type 2 diabetes mellitus without complications; E78.5 Hyperlipidemia, unspecified; I27.20 Pulmonary hypertension, unspecified; I11.9 Hypertensive heart disease without heart failure; Z88.8 Allergy status to other drugs, medicaments and biological substances; Z88.1 Allergy status to other antibiotic agents; Z79.02 Long term (current) use of antithrombotics/antiplatelets; Z79.51 Long term (current) use of inhaled steroids; Z79.4 Long term (current) use of insulin; Z79.899 Other long term (current) drug therapy
CPT/HCPCS: 36415; 71045; 71275; 80048; 80076; 82550; 82553; 83605; 83735; 83880; 84443; 84484; 85025; 85610; 87040; 87486; 87581; 87633; 87798; 93005; 93041; 94640; 94760; 99285; Q9967

== ENCOUNTER 2020-01-10 09:17 | Emergency (ER) | payer SELFPAY ==
[~2020-01-10] VITALS: Ht 182.9 cm; Wt 95.5 kg
[~2020-01-10 09:17] MED LIST changes: +ALBU83IN NEB; +CARV12.5 PO; +DOXY-350 PO; +EASYMIS17 XX; +FURO40TA2 PO; +LOSA25TA14 PO; +MAGN250T7 PO; +MUCI600T31 PO; +PRED20TA PO; +VITA-158 PO
[2020-01-10 10:01] LABS: BASO # 0.1 10^3/uL (0.0-0.2); BASO % 0.9 % (0.0-1.0); EOS # 0.6 10^3/uL (0.0-0.5); EOS % 10.1 % (0.0-3.0); HEMATOCRIT 38.9 % (42.0-52.0); HEMOGLOBIN 13.1 g/dl (13.5-17.5); LYMPH % 17.4 % (24.0-44.0); MEAN CORPUSCULAR HGB CONC 33.7 g/dl (32.0-36.5); MEAN CORPUSCULAR VOLUME 92.2 fl (80.0-96.0); MONO # 0.8 10^3/uL (0.0-0.8); MONO % 12.8 % (0.0-5.0); NEUTROPHILS # 3.4 10^3/uL (1.5-8.5); NEUTROPHILS % 58.5 % (36.0-66.0); PLATELET COUNT, AUTOMATED 164 10^3/uL (150-450); RED BLOOD COUNT 4.22 10^6/uL (4.30-6.10); WHITE BLOOD COUNT 5.9 10^3/uL (4.0-10.0)
[2020-01-10] MEDS ORDERED: TRANEXAMIC ACID INJection 1,000 MG in IV FLUID PLACE HOLDER 1 EA IV STA ×2 (10:07→10:17)
--- NOTE | 2020-01-10 10:14 | REP ---
CT of the cervical spine: Axial images are acquired and reformatted sagittal and projections. There are no comparisons. The skull base, C1 and C2 are unremarkable. There is diffuse demineralization. Vertebral body heights and alignment are unremarkable. There is degenerative disc disease at every cervical spine level. The facets are normally aligned. The prevertebral soft tissues are unremarkable. There is questionably a spinous process fracture of C5. This could be old. Correlate with clinical point tenderness. No posterior element fractures are identified otherwise. There is diffuse demineralization. Impression: Question C5 spinous process fracture, possibly old, correlate with clinical point tenderness. No other air fracture or listhesis. Multilevel degenerative disc disease. Demineralization. Electronically Signed by Ruperto Ontiveros MD 01/10/2020 10:06 A
[2020-01-10] MEDS ORDERED: TRANEXAMIC ACID 100 MG/ML 10ML VIAL IV STA (10:18)
--- NOTE | 2020-01-10 10:20 | REP ---
CT brain without contrast: History: Head injury. No comparison head CT study. CT findings: Preliminary digital culinary arts teacher radiograph is unremarkable. No skull fractures seen. The patient is edentulous. On bone window settings, there is a small quantity of fluid in the right maxillary sinus. The ethmoid sinuses are completely opacified bilaterally. There is mucosal thickening in the sphenoid and frontal sinuses. Polysinusitis pattern. No intraorbital abnormality is seen. No skull fracture is appreciated. There is extensive vascular calcification in the distal vertebral and distal carotid arteries. On soft tissue window settings, there is a [id number] amount of subarachnoid hemorrhage involving the right inferior frontal lobe and right inferior temporal lobe region. This extends to the superior frontal lobe laterally. No parenchymal hematoma is appreciated. There is no evidence of infarct, mass or midline shift. Coronal multiplanar re-formation images demonstrate a small area of nearly isodense subacute subdural hematoma in the right parietal lobe region 6 mm in thickness. This is not seen on axial images. Impression: Moderate amount of acute subarachnoid hemorrhage centered in the right frontal lobe and right temporal lobe. There is atrophy and vascular calcification. No parenchymal hematoma is seen. There is a small subacute subdural hematoma in the right parietal region visible on the coronal multiplanar re-formation images. This is nearly isointense and 6 mm in thickness. No midline shift. Findings were telephoned to Dr. Lorenzana in the ED at the time of the study. Electronically Signed by Froilan Lopez MD 01/10/2020 04:46 P
[2020-01-10] MEDS ORDERED: ADACEL/BOOSTRIX VACCINE (DIPHTH/PERTUSS/ACELL/TETANUS)0.5ML SYR (90715) IM ONE (10:30)
[2020-01-10 10:38] LABS: BLOOD UREA NITROGEN 24 MG/DL (7-18); CALCIUM LEVEL 8.4 MG/DL (8.8-10.2); CARBON DIOXIDE LEVEL 28 MEQ/L (21-32); CHLORIDE LEVEL 106 MEQ/L (98-107); CK-MB VALUE MASS 2.8 NG/ML (<3.6); CPK CREATINE PHOSPHOKINASE 124 U/L (39-308); CREATININE FOR GFR 0.84 MG/DL (0.70-1.30); GLOMERULAR FILTRATION RATE > 60.0 (>42); GLUCOSE, FASTING 117 MG/DL (70-100); MB/CK RELATIVE INDEX 2.26 (< OR =4); POTASSIUM SERUM 4.4 MEQ/L (3.5-5.1); SODIUM LEVEL 139 MEQ/L (136-145); TROPONIN I 0.02 NG/ML (< 0.10)
[2020-01-10 10:46] VITALS: BP 117/70
[2020-01-10] MEDS ORDERED: niCARdipine IV 40 MG in IV 1 EA IV SCH (11:00)
[2020-01-10] MEDS ORDERED: TRANEXAMIC ACID INJection 1,000 MG in NS 100 ML IV ONE (11:00)
--- NOTE | 2020-01-10 20:56 | ECGEPIP ---
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
== END 2020-01-10 10:50 | disposition short-term general hospital (02) ==
LOC: M ED 09:17 → EDBD 09:17 → M ED 10:50
DX: R55 Syncope and collapse (principal); S01.01XA Laceration without foreign body of scalp, initial encounter; S06.6X1A Traumatic subarachnoid hemorrhage with loss of consciousness of 30 minutes or less, initial encounter; S06.5X0A Traumatic subdural hemorrhage without loss of consciousness, initial encounter; W01.198A Fall on same level from slipping, tripping and stumbling with subsequent striking against other object, initial encounter; Y92.019 Unspecified place in single-family (private) house as the place of occurrence of the external cause; I25.10 Atherosclerotic heart disease of native coronary artery without angina pectoris; E11.21 Type 2 diabetes mellitus with diabetic nephropathy; I27.20 Pulmonary hypertension, unspecified; Z88.1 Allergy status to other antibiotic agents; Z88.8 Allergy status to other drugs, medicaments and biological substances; Z79.51 Long term (current) use of inhaled steroids; Z79.4 Long term (current) use of insulin; Z79.899 Other long term (current) drug therapy

== ENCOUNTER → 2020-02-05 | Outpatient (CLI) | payer SELFPAY ==
--- NOTE | 2020-02-05 17:42 | REP ---
HISTORY: Traumatic contusion. COMPARISON: 01/10/2020 which showed rather extensive subarachnoid hemorrhage. The rather extensive subarachnoid hemorrhage seen on the prior examination has resolved. There is a very tiny intermediate density along the surface of the brain from the temporal region to the convexities measuring a millimeter or less, possibly representing a minimal isodense residual. There is a large area of mixed predominantly low density in the deep white matter of the right frontal lobe. This represents a change. The area measures approximately 4.7 x 5 cm. There is no evidence of midline shift. The ventricles are essentially unchanged. There is no change in the posterior fossa. There is diffuse soft tissue density throughout the ethmoid bulla, status quo. There is no change in the appearance of the skull. IMPRESSION: 1. Large area of abnormal mixed predominantly decreased density right frontal lobe as described above and representing a change from the prior exam. The exact etiology of this is uncertain, but it most likely represents a subacute infarction, however, a mass lesion with surrounding edema cannot be ruled out. If that were the case, I would expect a rather significant midline shift which is not appreciated today. If acute CVA is of clinical concern, then I would recommend followup with diffusion weighted imaging brain MRI at this time. 2. Other findings as described above. Electronically Signed by Ant Blanca DO 02/06/2020 07:36 A
== END ==
LOC: M RAD 16:07
PROVIDERS: ATTEND Neurological Surgery
DX: S06.6X1D Traumatic subarachnoid hemorrhage with loss of consciousness of 30 minutes or less, subsequent encounter (principal); S06.5X0D Traumatic subdural hemorrhage without loss of consciousness, subsequent encounter; W01.198D Fall on same level from slipping, tripping and stumbling with subsequent striking against other object, subsequent encounter; Y92.019 Unspecified place in single-family (private) house as the place of occurrence of the external cause

== ENCOUNTER → 2020-06-25 | Outpatient (REF) | payer SELFPAY ==
[~2020-06-25] MED LIST changes: -LISI2.5T76 PO; +LISI2.5T8 PO
[2020-06-25 15:00] LABS: HEMATOCRIT 41.4 % (42.0-52.0); HEMOGLOBIN 13.7 g/dl (13.5-17.5); MEAN CORPUSCULAR HEMOGLOBIN 31.4 pg (27.0-33.0); MEAN CORPUSCULAR HGB CONC 33.1 g/dl (32.0-36.5); PLATELET COUNT, AUTOMATED 178 10^3/uL (150-450); RED BLOOD COUNT 4.36 10^6/uL (4.30-6.10); WHITE BLOOD COUNT 6.4 10^3/uL (4.0-10.0)
[2020-06-25 16:02] LABS: BLOOD UREA NITROGEN 19 MG/DL (7-18); CALCIUM LEVEL 9.1 MG/DL (8.8-10.2); CARBON DIOXIDE LEVEL 33 MEQ/L (21-32); CHLORIDE LEVEL 104 MEQ/L (98-107); CREATININE FOR GFR 0.86 MG/DL (0.70-1.30); GLOMERULAR FILTRATION RATE > 60.0 (>42); GLUCOSE, FASTING 124 MG/DL (70-100); POTASSIUM SERUM 4.2 MEQ/L (3.5-5.1); SODIUM LEVEL 138 MEQ/L (136-145)
== END ==
LOC: M LABDRWAD 08:23
PROVIDERS: ATTEND Physician Assistant
DX: I50.9 Heart failure, unspecified (principal)

== ENCOUNTER → 2020-12-05 | Outpatient (REF) | payer OTHER, SELFPAY ==
[2020-12-05 13:21] LABS: BASO # 0.1 10^3/uL (0.0-0.2); EOS # 0.7 10^3/uL (0.0-0.5); EOS % 11.1 % (0.0-3.0); HEMATOCRIT 43.1 % (42.0-52.0); HEMOGLOBIN 14.4 g/dl (13.5-17.5); LYMPH # 1.3 10^3/uL (1.5-5.0); LYMPH % 21.6 % (24.0-44.0); MEAN CORPUSCULAR HEMOGLOBIN 31.6 pg (27.0-33.0); MEAN CORPUSCULAR HGB CONC 33.4 g/dl (32.0-36.5); MEAN CORPUSCULAR VOLUME 94.7 fl (80.0-96.0); MONO # 0.8 10^3/uL (0.0-0.8); MONO % 13.5 % (0.0-5.0); NEUTROPHILS # 3.3 10^3/uL (1.5-8.5); NEUTROPHILS % 52.5 % (36.0-66.0); PLATELET COUNT, AUTOMATED 158 10^3/uL (150-450); RED BLOOD COUNT 4.55 10^6/uL (4.30-6.10); WHITE BLOOD COUNT 6.2 10^3/uL (4.0-10.0)
[2020-12-05 14:03] LABS: ALBUMIN 3.9 GM/DL (3.2-5.2); ALT/SGPT 21 U/L (12-78); BILIRUBIN,TOTAL 0.6 MG/DL (0.2-1.0); BLOOD UREA NITROGEN 18 MG/DL (7-18); CALCIUM LEVEL 9.8 MG/DL (8.8-10.2); CARBON DIOXIDE LEVEL 30 MEQ/L (21-32); CHLORIDE LEVEL 103 MEQ/L (98-107); CREATININE FOR GFR 0.91 MG/DL (0.70-1.30); FREE T4 0.96 NG/DL (0.76-1.46); GLOMERULAR FILTRATION RATE > 60.0 (>42); GLUCOSE, FASTING 84 MG/DL (70-100); POTASSIUM SERUM 4.7 MEQ/L (3.5-5.1); SODIUM LEVEL 141 MEQ/L (136-145); TOTAL PROTEIN 6.9 GM/DL (6.4-8.2)
[2020-12-05 14:06] LABS: CREATININE, URINE 27.8 MG/DL; MALB URINE SIEMENS < 5.0 MG/L; MAU/CREAT RATIO 17.9 MCG/MG (0.0-30.0)
[2020-12-05 18:43] LABS: HEMOGLOBIN A1c 5.8 %
== END ==
LOC: M SFHCADAM 09:30
PROVIDERS: ATTEND Physician Assistant
DX: R11.2 Nausea with vomiting, unspecified (principal); I50.20 Unspecified systolic (congestive) heart failure; E11.9 Type 2 diabetes mellitus without complications

== ENCOUNTER → 2021-01-21 | Outpatient (CLI) | payer SELFPAY ==
--- NOTE | 2021-01-21 17:16 | REP ---
INDICATION: SOB. COMPARISON: PA and lateral chest dated 04/27/2017. TECHNIQUE: Upright PA and lateral chest. FINDINGS: The lung stout are clear. Cardiac size is upper normal, unchanged. There are sternotomy wires, unchanged. There is straight leaves level tubing superimposed over the heart on the right possibly a revascularization procedure. The aly, mediastinum, and skeletal structures are unremarkable. IMPRESSION: No acute cardiopulmonary findings. Sternotomy wires and possible cardiac revascularization procedure. <Electronically signed by Ruperto Ontiveros > 01/21/21 1978
== END ==
LOC: M ADAMS 13:31
PROVIDERS: ATTEND Physician Assistant
DX: R06.02 Shortness of breath (principal)

== ENCOUNTER → 2021-02-05 | Outpatient (REF) | payer SELFPAY ==
[2021-02-05 17:52] LABS: BLOOD UREA NITROGEN 23 MG/DL (7-18); CALCIUM LEVEL 9.3 MG/DL (8.8-10.2); CARBON DIOXIDE LEVEL 29 MEQ/L (21-32); CHLORIDE LEVEL 106 MEQ/L (98-107); CREATININE FOR GFR 0.85 MG/DL (0.70-1.30); GLOMERULAR FILTRATION RATE > 60.0 (>42); GLUCOSE, FASTING 185 MG/DL (70-100); NT-PRO BNP 1780 PG/ML (<450); POTASSIUM SERUM 4.7 MEQ/L (3.5-5.1); SODIUM LEVEL 140 MEQ/L (136-145)
== END ==
LOC: M LABDRWAD 16:33
PROVIDERS: ATTEND Physician Assistant
DX: I50.42 Chronic combined systolic (congestive) and diastolic (congestive) heart failure (principal)

== ENCOUNTER → 2021-06-13 | Outpatient (REF) | payer SELFPAY ==
[2021-06-13 12:49] LABS: BASO % 0.7 % (0.0-1.0); EOS # 0.5 10^3/uL (0.0-0.5); EOS % 8.8 % (0.0-3.0); HEMATOCRIT 40.1 % (42.0-52.0); HEMOGLOBIN 12.9 g/dl (13.5-17.5); LYMPH # 1.1 10^3/uL (1.5-5.0); MEAN CORPUSCULAR HEMOGLOBIN 31.1 pg (27.0-33.0); MEAN CORPUSCULAR HGB CONC 32.2 g/dl (32.0-36.5); MEAN CORPUSCULAR VOLUME 96.6 fl (80.0-96.0); MONO # 0.8 10^3/uL (0.0-0.8); NEUTROPHILS % 55.1 % (36.0-66.0); PLATELET COUNT, AUTOMATED 157 10^3/uL (150-450); RED BLOOD COUNT 4.15 10^6/uL (4.30-6.10); WHITE BLOOD COUNT 5.4 10^3/uL (4.0-10.0)
[2021-06-13 13:37] LABS: ALBUMIN 3.6 GM/DL (3.2-5.2); BLOOD UREA NITROGEN 17 MG/DL (7-18); CALCIUM LEVEL 8.9 MG/DL (8.8-10.2); CARBON DIOXIDE LEVEL 25 MEQ/L (21-32); CHLORIDE LEVEL 107 MEQ/L (98-107); CREATININE FOR GFR 0.77 MG/DL (0.70-1.30); GLOMERULAR FILTRATION RATE > 60.0 (>42); GLUCOSE, FASTING 131 MG/DL (70-100); NT-PRO BNP 2422 PG/ML (<450); PHOSPHORUS LEVEL 2.9 MG/DL (2.5-4.9); POTASSIUM SERUM 4.6 MEQ/L (3.5-5.1); SODIUM LEVEL 137 MEQ/L (136-145)
== END ==
LOC: M LABDRWAD 12:29
PROVIDERS: ATTEND Physician Assistant
DX: I50.42 Chronic combined systolic (congestive) and diastolic (congestive) heart failure (principal)

== ENCOUNTER → 2021-07-03 | Outpatient (REF) | payer OTHER ==
[2021-07-03 15:02] LABS: HEMATOCRIT 43.3 % (42.0-52.0); HEMOGLOBIN 14.2 g/dl (13.5-17.5); MEAN CORPUSCULAR HEMOGLOBIN 31.8 pg (27.0-33.0); MEAN CORPUSCULAR HGB CONC 32.8 g/dl (32.0-36.5); MEAN CORPUSCULAR VOLUME 96.9 fl (80.0-96.0); PLATELET COUNT, AUTOMATED 159 10^3/uL (150-450); RED BLOOD COUNT 4.47 10^6/uL (4.30-6.10); WHITE BLOOD COUNT 5.9 10^3/uL (4.0-10.0)
[2021-07-03 15:33] LABS: HEMOGLOBIN A1c 6.7 %
[2021-07-03 16:01] LABS: ALBUMIN 3.7 GM/DL (3.2-5.2); ALT/SGPT 24 U/L (12-78); BILIRUBIN,TOTAL 0.6 MG/DL (0.2-1.0); BLOOD UREA NITROGEN 21 MG/DL (7-18); CALCIUM LEVEL 9.2 MG/DL (8.8-10.2); CARBON DIOXIDE LEVEL 31 MEQ/L (21-32); CHLORIDE LEVEL 103 MEQ/L (98-107); CREATININE FOR GFR 0.82 MG/DL (0.70-1.30); GLOMERULAR FILTRATION RATE > 60.0 (>42); GLUCOSE, FASTING 130 MG/DL (70-100); POTASSIUM SERUM 4.4 MEQ/L (3.5-5.1); SODIUM LEVEL 138 MEQ/L (136-145)
== END ==
LOC: M SFHCADAM 08:33
PROVIDERS: ATTEND Physician Assistant
DX: E11.9 Type 2 diabetes mellitus without complications (principal); I25.10 Atherosclerotic heart disease of native coronary artery without angina pectoris

== ENCOUNTER → 2021-07-08 | Outpatient (CLI) | payer OTHER, SELFPAY ==
--- NOTE | 2021-07-08 11:36 | REP ---
INDICATION: GOODWIN,CHF. COMPARISON: Comparison chest x-ray January 21, 2021. TECHNIQUE: Two views.. FINDINGS: Patient is status post prior median sternotomy. There is a granulomatous calcification in the left lower lobe. Lung stout are otherwise clear. The pleural angles are sharp. Heart size is borderline unchanged. The thoracic aorta is tortuous and calcific. Pulmonary vasculature is not increased. IMPRESSION: Borderline heart size. Prior sternotomy. Otherwise no acute disease. <Electronically signed by Raymond Lopez > 07/08/21 1032
== END ==
LOC: M ADAMS 09:18
PROVIDERS: ATTEND Physician Assistant
DX: R06.00 Dyspnea, unspecified (principal); I50.20 Unspecified systolic (congestive) heart failure

== ENCOUNTER 2021-10-26 10:04 | Emergency (ER) | payer SELFPAY ==
[~2021-10-26] VITALS: Ht 182.9 cm; Wt 101.4 kg
[~2021-10-26 10:04] MED LIST changes: +LOSA25TA13 PO; -LOSA25TA14 PO
[2021-10-26] MEDS ORDERED: dexameTHASONE 4 MG/ML 1ML VIAL (J1100 PER 1MG) IV ONE (10:35)
[2021-10-26] MEDS: COMBIVENT RESPIMAT 100-20MCG INHALER 4GM INH SCH ×3 (10:46→11:03)
[2021-10-26 11:05] LABS: BASO % 0.5 % (0.0-1.0); EOS # 0.3 10^3/uL (0.0-0.5); EOS % 4.7 % (0.0-3.0); HEMATOCRIT 38.6 % (42.0-52.0); HEMOGLOBIN 12.7 g/dl (13.5-17.5); LYMPH # 1.2 10^3/uL (1.5-5.0); LYMPH % 19.7 % (24.0-44.0); MEAN CORPUSCULAR HEMOGLOBIN 31.1 pg (27.0-33.0); MEAN CORPUSCULAR HGB CONC 32.9 g/dl (32.0-36.5); MEAN CORPUSCULAR VOLUME 94.4 fl (80.0-96.0); MONO # 0.8 10^3/uL (0.0-0.8); MONO % 12.6 % (2.0-8.0); NEUTROPHILS # 3.8 10^3/uL (1.5-8.5); NEUTROPHILS % 62.2 % (36.0-66.0); PLATELET COUNT, AUTOMATED 136 10^3/uL (150-450); RED BLOOD COUNT 4.09 10^6/uL (4.30-6.10); WHITE BLOOD COUNT 6.2 10^3/uL (4.0-10.0)
[2021-10-26 11:18] LABS: INR 1.34; PARTIAL THROMBOPLASTIN TIME 36.8 SECONDS (25.9-37.0)
[2021-10-26 11:29] LABS: ALBUMIN 3.5 GM/DL (3.2-5.2); ALT/SGPT 20 U/L (12-78); BILIRUBIN,TOTAL 0.4 MG/DL (0.2-1.0); BLOOD UREA NITROGEN 28 MG/DL (7-18); CALCIUM LEVEL 8.8 MG/DL (8.8-10.2); CARBON DIOXIDE LEVEL 26 MEQ/L (21-32); CHLORIDE LEVEL 105 MEQ/L (98-107); CREATININE FOR GFR 0.97 MG/DL (0.70-1.30); GLOMERULAR FILTRATION RATE > 60.0 (>42); GLUCOSE, FASTING 176 MG/DL (70-100); LDH LACTATE DEHYDROGENASE 162 U/L (87-241); MAGNESIUM LEVEL 2.1 MG/DL (1.8-2.4); NT-PRO BNP 1601 PG/ML (<450); POTASSIUM SERUM 4.2 MEQ/L (3.5-5.1); SODIUM LEVEL 139 MEQ/L (136-145)
[2021-10-26] MEDS ORDERED: PRED20TA PO (12:26)
[2021-10-26 12:35] VITALS: BP 131/65
== END 2021-10-26 12:43 | disposition home or self-care (01) ==
LOC: M ED 10:04
DX: J45.909 Unspecified asthma, uncomplicated (principal); J20.9 Acute bronchitis, unspecified; B34.8 Other viral infections of unspecified site; E11.9 Type 2 diabetes mellitus without complications; I48.91 Unspecified atrial fibrillation; I10 Essential (primary) hypertension; Z79.01 Long term (current) use of anticoagulants; Z79.4 Long term (current) use of insulin; Z79.51 Long term (current) use of inhaled steroids; Z79.82 Long term (current) use of aspirin; Z88.1 Allergy status to other antibiotic agents; Z88.8 Allergy status to other drugs, medicaments and biological substances
CPT/HCPCS: 71045; 80053; 83605; 83615; 83735; 83880; 84484; 85025; 85610; 85730; 87040; 87798; 93005; 94640; 96374; 99284; J1100

== ENCOUNTER → 2021-11-18 | Outpatient (REF) | payer OTHER ==
[2021-11-18 12:44] LABS: HEMATOCRIT 42.2 % (42.0-52.0); HEMOGLOBIN 13.6 g/dl (13.5-17.5); MEAN CORPUSCULAR HEMOGLOBIN 31.3 pg (27.0-33.0); MEAN CORPUSCULAR HGB CONC 32.2 g/dl (32.0-36.5); PLATELET COUNT, AUTOMATED 182 10^3/uL (150-450); RED BLOOD COUNT 4.35 10^6/uL (4.30-6.10); WHITE BLOOD COUNT 6.2 10^3/uL (4.0-10.0)
[2021-11-18 13:55] LABS: CREATININE, URINE 17.8 MG/DL; MALB URINE SIEMENS < 5.0 MG/L
[2021-11-18 14:40] LABS: ALBUMIN 3.6 GM/DL (3.2-5.2); ALT/SGPT 25 U/L (12-78); BILIRUBIN,TOTAL 0.4 MG/DL (0.2-1.0); BLOOD UREA NITROGEN 21 MG/DL (7-18); CALCIUM LEVEL 8.9 MG/DL (8.8-10.2); CARBON DIOXIDE LEVEL 31 MEQ/L (21-32); CHLORIDE LEVEL 104 MEQ/L (98-107); CHOLESTEROL LEVEL 164 MG/DL (<200); CHOLESTEROL RISK RATIO 3.727 (<5); CREATININE FOR GFR 1.03 MG/DL (0.70-1.30); FREE T4 0.95 NG/DL (0.76-1.46); GLOMERULAR FILTRATION RATE > 60.0 (>42); GLUCOSE, FASTING 137 MG/DL (70-100); HDL CHOLESTEROL 44 MG/DL (>40); LDL CHOLESTEROL 90 MG/DL (<100); NON-HDL-C 120 MG/DL; POTASSIUM SERUM 4.3 MEQ/L (3.5-5.1); SODIUM LEVEL 140 MEQ/L (136-145); TOTAL PROTEIN 6.8 GM/DL (6.4-8.2); TRIGLYCERIDES LEVEL 151 MG/DL (<150)
[2021-11-18 14:46] LABS: HEMOGLOBIN A1c 6.2 %
== END ==
LOC: M SFHCADAM 09:45
PROVIDERS: ATTEND Physician Assistant
DX: E11.319 Type 2 diabetes mellitus with unspecified diabetic retinopathy without macular edema (principal); I25.10 Atherosclerotic heart disease of native coronary artery without angina pectoris; I50.20 Unspecified systolic (congestive) heart failure

== ENCOUNTER → 2021-11-24 | Outpatient (CLI) | payer SELFPAY | LOC: M ADAMS 15:47 | PROVIDERS: ATTEND Physician Assistant | DX: I50.20 Unspecified systolic (congestive) heart failure (principal); J98.01 Acute bronchospasm ==

== ENCOUNTER → 2021-12-31 | Outpatient (REF) | payer OTHER ==
[2021-12-31 14:39] LABS: HEMATOCRIT 40.7 % (42.0-52.0); HEMOGLOBIN 13.4 g/dl (13.5-17.5); MEAN CORPUSCULAR HEMOGLOBIN 31.7 pg (27.0-33.0); MEAN CORPUSCULAR HGB CONC 32.9 g/dl (32.0-36.5); MEAN CORPUSCULAR VOLUME 96.2 fl (80.0-96.0); PLATELET COUNT, AUTOMATED 178 10^3/uL (150-450); RED BLOOD COUNT 4.23 10^6/uL (4.30-6.10); WHITE BLOOD COUNT 7.3 10^3/uL (4.0-10.0)
[2021-12-31 16:12] LABS: ALBUMIN 3.7 GM/DL (3.2-5.2); ALT/SGPT 21 U/L (12-78); BILIRUBIN,TOTAL 1.5 MG/DL (0.2-1.0); BLOOD UREA NITROGEN 27 MG/DL (7-18); CARBON DIOXIDE LEVEL 32 MEQ/L (21-32); CHLORIDE LEVEL 101 MEQ/L (98-107); CREATININE FOR GFR 0.99 MG/DL (0.70-1.30); GLOMERULAR FILTRATION RATE > 60.0 (>42); GLUCOSE, FASTING 95 MG/DL (70-100); POTASSIUM SERUM 4.4 MEQ/L (3.5-5.1); SODIUM LEVEL 138 MEQ/L (136-145); TOTAL PROTEIN 6.9 GM/DL (6.4-8.2)
[2021-12-31 16:13] LABS: FREE T4 1.14 NG/DL (0.76-1.46)
[2021-12-31 17:17] LABS: HEMOGLOBIN A1c 5.8 %
== END ==
LOC: M SFHCADAM 10:39
PROVIDERS: ATTEND Physician Assistant
DX: I50.20 Unspecified systolic (congestive) heart failure (principal); R06.00 Dyspnea, unspecified; E11.319 Type 2 diabetes mellitus with unspecified diabetic retinopathy without macular edema

== ENCOUNTER → 2021-12-31 | Outpatient (REF) | payer SELFPAY ==
[2021-12-31 16:04] LABS: BLOOD UREA NITROGEN 28 MG/DL (7-18); CALCIUM LEVEL 9.3 MG/DL (8.8-10.2); CARBON DIOXIDE LEVEL 32 MEQ/L (21-32); CHLORIDE LEVEL 101 MEQ/L (98-107); CREATININE FOR GFR 0.98 MG/DL (0.70-1.30); GLOMERULAR FILTRATION RATE > 60.0 (>42); GLUCOSE, FASTING 102 MG/DL (70-100); MAGNESIUM LEVEL 2.3 MG/DL (1.8-2.4); NT-PRO BNP 1156 PG/ML (<450); POTASSIUM SERUM 4.4 MEQ/L (3.5-5.1); SODIUM LEVEL 138 MEQ/L (136-145)
== END ==
LOC: M LABDRWAD 14:25
PROVIDERS: ATTEND Physician Assistant
DX: I50.42 Chronic combined systolic (congestive) and diastolic (congestive) heart failure (principal)

== ENCOUNTER → 2022-03-24 | Outpatient (CLI) | payer SELFPAY | LOC: M PLAIMG 12:09 | PROVIDERS: ATTEND Internal Medicine Pulmonary Disease | DX: R06.02 Shortness of breath (principal) ==

== ENCOUNTER → 2022-04-07 | Outpatient (CLI) | payer OTHER ==
[~2022-04-07] MED LIST changes: +ALBU2.5V10 NEB; -ALBU83IN NEB
[2022-04-07 13:17] LABS: C REACTIVE PROTEIN QUANTITATIV < 0.30 MG/DL (0.00-0.30); RHEUMATOID FACTOR QUANT < 10.0 IU/ML (<15.0)
[2022-04-07 13:57] LABS: CA19-9 TUMOR MARKER,CARBOHYDRA 3.2 U/ML (<35.0)
== END ==
LOC: M ADAMS 08:32
PROVIDERS: ATTEND Internal Medicine Pulmonary Disease
DX: R06.00 Dyspnea, unspecified (principal)

== ENCOUNTER → 2022-04-07 | Outpatient (REF) | payer OTHER ==
[2022-04-07 12:48] LABS: HEMATOCRIT 40.1 % (42.0-52.0); HEMOGLOBIN 13.1 g/dl (13.5-17.5); MEAN CORPUSCULAR HEMOGLOBIN 31.9 pg (27.0-33.0); MEAN CORPUSCULAR HGB CONC 32.7 g/dl (32.0-36.5); MEAN CORPUSCULAR VOLUME 97.6 fl (80.0-96.0); PLATELET COUNT, AUTOMATED 147 10^3/uL (150-450); RED BLOOD COUNT 4.11 10^6/uL (4.30-6.10); WHITE BLOOD COUNT 5.6 10^3/uL (4.0-10.0)
[2022-04-07 13:38] LABS: HEMOGLOBIN A1c 5.9 %
[2022-04-07 13:47] LABS: ALBUMIN 3.6 GM/DL (3.2-5.2); ALT/SGPT 17 U/L (12-78); BILIRUBIN,TOTAL 0.4 MG/DL (0.2-1.0); BLOOD UREA NITROGEN 22 MG/DL (7-18); CALCIUM LEVEL 8.9 MG/DL (8.8-10.2); CARBON DIOXIDE LEVEL 30 MEQ/L (21-32); CHLORIDE LEVEL 105 MEQ/L (98-107); CREATININE FOR GFR 0.98 MG/DL (0.70-1.30); FREE T4 0.91 NG/DL (0.76-1.46); GLOMERULAR FILTRATION RATE > 60.0 (>42); GLUCOSE, FASTING 170 MG/DL (70-100); POTASSIUM SERUM 4.6 MEQ/L (3.5-5.1); SODIUM LEVEL 139 MEQ/L (136-145); TOTAL PROTEIN 6.5 GM/DL (6.4-8.2)
== END ==
LOC: M SFHCADAM 08:12
PROVIDERS: ATTEND Physician Assistant
DX: R06.00 Dyspnea, unspecified (principal); I50.20 Unspecified systolic (congestive) heart failure; E11.319 Type 2 diabetes mellitus with unspecified diabetic retinopathy without macular edema; I48.19 Other persistent atrial fibrillation; E78.5 Hyperlipidemia, unspecified

== ENCOUNTER 2022-04-24 10:47 | Emergency (ER) | payer SELFPAY ==
[~2022-04-24] VITALS: Ht 182.9 cm; Wt 102.6 kg
[2022-04-24] MEDS ORDERED: MAGN100T PO (11:00)
[2022-04-24] MEDS ORDERED: TORS20TA2 (11:00)
[2022-04-24] MEDS ORDERED: ELIQ5TAB PO (11:00)
[2022-04-24 11:55] LABS: VENOUS BASE EXCESS -1.4 (-2.0-2.0); VENOUS HCO3 24.5 MEQ/L (23.0-27.0); VENOUS O2 SATURATION 72.2 % (60.0-80.0); VENOUS PARTIAL PRESSURE O2 39.4 mmHg (30.0-50.0); VENOUS PH 7.345 UNITS (7.330-7.430); VENOUS STANDARD HCO3 22.7 MEQ/L
[2022-04-24 11:58] LABS: BASO % 0.6 % (0.0-1.0); EOS # 0.4 10^3/uL (0.0-0.5); EOS % 5.7 % (0.0-3.0); HEMATOCRIT 39.9 % (42.0-52.0); HEMOGLOBIN 13.2 g/dl (13.5-17.5); LYMPH # 1.2 10^3/uL (1.5-5.0); LYMPH % 16.3 % (24.0-44.0); MEAN CORPUSCULAR HEMOGLOBIN 31.2 pg (27.0-33.0); MEAN CORPUSCULAR HGB CONC 33.1 g/dl (32.0-36.5); MEAN CORPUSCULAR VOLUME 94.3 fl (80.0-96.0); MONO # 0.8 10^3/uL (0.0-0.8); MONO % 11.3 % (2.0-8.0); NEUTROPHILS # 4.7 10^3/uL (1.5-8.5); NEUTROPHILS % 65.7 % (36.0-66.0); PLATELET COUNT, AUTOMATED 156 10^3/uL (150-450); RED BLOOD COUNT 4.23 10^6/uL (4.30-6.10); WHITE BLOOD COUNT 7.2 10^3/uL (4.0-10.0)
[2022-04-24] MEDS ORDERED: IPRATROPIUM 0.5MG/ALBUTEROL 2.5MG INH SOL UD 3ML (DUONEB) NEB ONE (12:10)
[2022-04-24 12:44] LABS: ALT/SGPT 19 U/L (12-78); BILIRUBIN,DIRECT 0.2 MG/DL (0.0-0.2); BILIRUBIN,TOTAL 0.7 MG/DL (0.2-1.0); BLOOD UREA NITROGEN 23 MG/DL (7-18); CALCIUM LEVEL 9.5 MG/DL (8.8-10.2); CARBON DIOXIDE LEVEL 27 MEQ/L (21-32); CHLORIDE LEVEL 106 MEQ/L (98-107); CREATININE FOR GFR 0.86 MG/DL (0.70-1.30); GLOMERULAR FILTRATION RATE > 60.0 (>42); GLUCOSE, FASTING 125 MG/DL (70-100); NT-PRO BNP 2443 PG/ML (<450); POTASSIUM SERUM 4.7 MEQ/L (3.5-5.1); SODIUM LEVEL 138 MEQ/L (136-145); TOTAL PROTEIN 7.3 GM/DL (6.4-8.2)
[2022-04-24 14:46] VITALS: O2SAT 94
[2022-04-24] MEDS ORDERED: PRED20TA PO (15:16)
[2022-04-24 15:31] VITALS: BP 107/60
== END 2022-04-24 15:36 | disposition home or self-care (01) ==
LOC: M ED 10:47
DX: J20.6 Acute bronchitis due to rhinovirus (principal); R94.31 Abnormal electrocardiogram [ECG] [EKG]; I10 Essential (primary) hypertension; E11.9 Type 2 diabetes mellitus without complications; J98.4 Other disorders of lung; Z79.4 Long term (current) use of insulin; Z86.79 Personal history of other diseases of the circulatory system; Z79.51 Long term (current) use of inhaled steroids; Z79.899 Other long term (current) drug therapy; Z88.1 Allergy status to other antibiotic agents; Z88.8 Allergy status to other drugs, medicaments and biological substances

== ENCOUNTER → 2023-01-05 | Outpatient (REF) | payer OTHER ==
[~2023-01-05] MED LIST changes: -DOXY-350 PO; +DOXY-444 PO; +ELIQ5TAB PO; +MAGN100T PO; +TORS20TA2
[2023-01-05 13:40] LABS: HEMATOCRIT 43.4 % (42.0-52.0); HEMOGLOBIN 13.9 g/dl (13.5-17.5); MEAN CORPUSCULAR HEMOGLOBIN 31.4 pg (27.0-33.0); PLATELET COUNT, AUTOMATED 177 10^3/uL (150-450); RED BLOOD COUNT 4.43 10^6/uL (4.30-6.10); WHITE BLOOD COUNT 6.8 10^3/uL (4.0-10.0)
[2023-01-05 13:58] LABS: HEMOGLOBIN A1c 6.1 % (4.0-6.0)
[2023-01-05 14:06] LABS: ALBUMIN 3.9 G/DL (3.2-5.2); ALKALINE PHOSPHATASE 54 U/L (46-116); ALT/SGPT 22 U/L (7.0-40); AST/SGOT 24 U/L (<34); BILIRUBIN,TOTAL 0.5 MG/DL (0.3-1.2); BLOOD UREA NITROGEN 29 MG/DL (9-23); CALCIUM LEVEL 9.2 MG/DL (8.3-10.6); CARBON DIOXIDE LEVEL 29 MMOL/L (20-31); CHLORIDE LEVEL 105 MMOL/L (98-107); CREATININE FOR GFR 0.94 MG/DL (0.70-1.30); GLOMERULAR FILTRATION RATE > 60.0 (>42); GLUCOSE, FASTING 118 MG/DL (74-106); POTASSIUM SERUM 4.7 MMOL/L (3.5-5.1); SODIUM LEVEL 139 MMOL/L (136-145); TOTAL PROTEIN 6.7 G/DL (5.7-8.2)
== END ==
LOC: M SFHCADAM 10:32
PROVIDERS: ATTEND Physician Assistant
DX: I50.20 Unspecified systolic (congestive) heart failure (principal); I48.19 Other persistent atrial fibrillation; E78.5 Hyperlipidemia, unspecified; E11.9 Type 2 diabetes mellitus without complications

== ENCOUNTER → 2023-02-11 | Outpatient (CLI) | payer SELFPAY | LOC: M RAD 13:25 | PROVIDERS: ATTEND Physician Assistant | DX: I73.9 Peripheral vascular disease, unspecified (principal) ==

== ENCOUNTER 2023-05-09 04:40 | Inpatient (IN) | payer SELFPAY ==
[~2023-05-09] VITALS: Ht 182.9 cm; Wt 93.4 kg
[~2023-05-09 04:40] MED LIST changes: -TORS20TA2; +TORS20TA2 PO
[2023-05-09 06:50] LABS: BASO % 0.5 % (0.0-1.0); EOS % 0.4 % (0.0-3.0); HEMATOCRIT 44.7 % (42.0-52.0); HEMOGLOBIN 14.6 g/dl (13.5-17.5); LYMPH # 0.5 10^3/uL (1.5-5.0); MEAN CORPUSCULAR HGB CONC 32.7 g/dl (32.0-36.5); MONO # 0.8 10^3/uL (0.0-0.8); MONO % 9.7 % (2.0-8.0); NEUTROPHILS # 6.9 10^3/uL (1.5-8.5); NEUTROPHILS % 82.7 % (36.0-66.0); PLATELET COUNT, AUTOMATED 130 10^3/uL (150-450); RED BLOOD COUNT 4.56 10^6/uL (4.30-6.10); WHITE BLOOD COUNT 8.4 10^3/uL (4.0-10.0)
[2023-05-09 06:56] LABS: INR 1.24; PROTHROMBIN TIME 15.9 SECONDS (12.5-14.5)
[2023-05-09 07:37] LABS: ALBUMIN 3.8 G/DL (3.2-5.2); ALKALINE PHOSPHATASE 125 U/L (46-116); ALT/SGPT 70 U/L (7.0-40); AST/SGOT 41 U/L (<34); BILIRUBIN,DIRECT 0.6 MG/DL (<0.4); BILIRUBIN,TOTAL 1.2 MG/DL (0.3-1.2); BLOOD UREA NITROGEN 32 MG/DL (9-23); CALCIUM LEVEL 9.2 MG/DL (8.3-10.6); CARBON DIOXIDE LEVEL 25 MMOL/L (20-31); CHLORIDE LEVEL 99 MMOL/L (98-107); CK-MB VALUE MASS 1.1 NG/ML (<3.6); CPK CREATINE PHOSPHOKINASE 51 U/L (46-171); CREATININE FOR GFR 0.87 MG/DL (0.70-1.30); GLOMERULAR FILTRATION RATE > 60.0 (>35); GLUCOSE, FASTING 245 MG/DL (74-106); LIPASE 16 U/L (12-53); MB/CK RELATIVE INDEX 2.15 (< OR =4); SODIUM LEVEL 133 MMOL/L (136-145); TOTAL PROTEIN 7.3 G/DL (5.7-8.2)
[2023-05-09] MEDS ORDERED: ISOVUE-370 76% 100ML VIAL As Ordered ONE (08:20)
[2023-05-09] MEDS ORDERED: FUROSEMIDE 20MG/2ML VIAL IV ONE ×3 (08:31→10:15)
[2023-05-09 10:00] LABS: CK-MB VALUE MASS 1.8 NG/ML (<3.6)
[2023-05-09 10:01] LABS: MB/CK RELATIVE INDEX 3.82 (< OR =4)
[2023-05-09] MEDS ORDERED: PIPERACILLIN/TAZOBACTAM SOD 3.375 GM in D5W MINI-BAG PLUS 50 ML IV ONE (10:44)
[2023-05-09] MEDS ORDERED: MED REC IN PROGRESS XX SCH (11:00)
[2023-05-09] MEDS ORDERED: GLUCOSE 4GM CHEW TABLET PO PRN (11:20)
[2023-05-09] MEDS ORDERED: DEXTROSE 50% 50ML SYRINGE IV PRN (11:20)
[2023-05-09] MEDS ORDERED: GLUCAGON INJ 1MG VIAL SC PRN (11:20)
[2023-05-09] MEDS: DOXYCYCLINE HYCLATE 100MG TABLET PO SCH ×2 (11:31→20:59)
[2023-05-09] MEDS: methylPREDNISolone 40MG 1ML VIAL IV SCH ×2 (11:31→23:58)
[2023-05-09] MEDS: guaiFENesin SYRUP 200MG 10ML UDC PO SCH ×2 (11:31→18:21)
[2023-05-09] MEDS ORDERED: ALBUTEROL SULFATE 2.5MG/0.5ML INH NEB SOLN NEB PRN (11:35)
[2023-05-09] MEDS ORDERED: ACET650T3 PO (11:43)
[2023-05-09] MEDS ORDERED: CARV6.25 PO (11:43)
[2023-05-09 11:49] LABS: PROCALCITONIN 11.04 ng/ml
[2023-05-09] MEDS ORDERED: HOME MED LIST COMPLETE! XX SCH (11:50)
[2023-05-09] MEDS: IPRATROPIUM 0.5MG/ALBUTEROL 2.5MG INH SOL UD 3ML (DUONEB) NEB SCH ×4 (12:00→23:14)
[2023-05-09] MEDS: INSULIN LISPRO (NovoLOG) PER UNIT SC SCH ×2 (12:00→18:21)
[2023-05-09 13:30] VITALS: BP 159/89; TEMP 98.6; O2SAT 96
[2023-05-09] MEDS: CARVedilol 6.25 MG TAB PO SCH ×2 (13:47→20:59)
[2023-05-09] MEDS: ASPIRIN 81MG ENTERIC TABLET PO SCH (13:47)
[2023-05-09 16:00] VITALS: BP 129/75; TEMP 97.8; O2SAT 96
[2023-05-09] MEDS ORDERED: FUROSEMIDE 40MG/4ML VIAL IV SCH (16:00)
[2023-05-09] MEDS: FUROSEMIDE 40MG/4ML VIAL IV SCH (16:44)
[2023-05-09] MEDS: MORPHINE 4 MG/ML 1ML VIAL IV PRN ×2 (16:44→21:00)
[2023-05-09] MEDS: PIPERACILLIN/TAZOBACTAM SOD 3.375 GM in D5W MINI-BAG PLUS 50 ML IV SCH (18:21)
[2023-05-09 20:00] VITALS: BP 122/61; TEMP 98; O2SAT 95
[2023-05-09] MEDS: ACETYLCYSTEINE 10% 30ML VIAL INH SCH (20:00)
[2023-05-09 23:38] VITALS: BP 131/63; TEMP 98.5; O2SAT 96
[2023-05-10] VITALS (7 sets, daily range): BP systolic 111–121; BP diastolic 56–71; TEMP 97.5–99.4; O2SAT 92–96
[2023-05-10] MEDS: guaiFENesin SYRUP 200MG 10ML UDC PO SCH ×4 (00:24→19:00)
[2023-05-10] MEDS: INSULIN LISPRO (NovoLOG) PER UNIT SC SCH ×4 (00:25→19:00)
[2023-05-10] MEDS: PIPERACILLIN/TAZOBACTAM SOD 3.375 GM in D5W MINI-BAG PLUS 50 ML IV SCH ×4 (00:25→19:00)
[2023-05-10] MEDS: FUROSEMIDE 40MG/4ML VIAL IV SCH (00:25)
[2023-05-10] MEDS: IPRATROPIUM 0.5MG/ALBUTEROL 2.5MG INH SOL UD 3ML (DUONEB) NEB SCH ×6 (03:15→23:16)
[2023-05-10 05:47] LABS: BASO % 0.2 % (0.0-1.0); HEMATOCRIT 44.5 % (42.0-52.0); HEMOGLOBIN 14.8 g/dl (13.5-17.5); LYMPH # 0.4 10^3/uL (1.5-5.0); LYMPH % 2.3 % (24.0-44.0); MEAN CORPUSCULAR HEMOGLOBIN 31.9 pg (27.0-33.0); MEAN CORPUSCULAR HGB CONC 33.3 g/dl (32.0-36.5); MEAN CORPUSCULAR VOLUME 95.9 fl (80.0-96.0); MONO % 12.7 % (2.0-8.0); NEUTROPHILS # 14.7 10^3/uL (1.5-8.5); NEUTROPHILS % 84.1 % (36.0-66.0); PLATELET COUNT, AUTOMATED 120 10^3/uL (150-450); RED BLOOD COUNT 4.64 10^6/uL (4.30-6.10); WHITE BLOOD COUNT 17.5 10^3/uL (4.0-10.0)
[2023-05-10 05:49] LABS: MONO # 2.2 10^3/uL (0.0-0.8)
[2023-05-10 05:58] LABS: ALBUMIN 3.1 G/DL (3.2-5.2); ALKALINE PHOSPHATASE 108 U/L (46-116); ALT/SGPT 44 U/L (7.0-40); AST/SGOT 21 U/L (<34); BLOOD UREA NITROGEN 32 MG/DL (9-23); CALCIUM LEVEL 8.8 MG/DL (8.3-10.6); CARBON DIOXIDE LEVEL 24 MMOL/L (20-31); CHLORIDE LEVEL 99 MMOL/L (98-107); CREATININE FOR GFR 0.92 MG/DL (0.70-1.30); GLOMERULAR FILTRATION RATE > 60.0 (>35); GLUCOSE, FASTING 224 MG/DL (74-106); MAGNESIUM LEVEL 1.6 MG/DL (1.8-2.4); PHOSPHORUS LEVEL 3.7 MG/DL (2.4-5.1); SODIUM LEVEL 134 MMOL/L (136-145); TOTAL PROTEIN 6.5 G/DL (5.7-8.2)
[2023-05-10] MEDS: ACETYLCYSTEINE 10% 30ML VIAL INH SCH ×2 (07:28→20:36)
[2023-05-10] MEDS: DOXYCYCLINE HYCLATE 100MG TABLET PO SCH ×2 (08:10→20:56)
[2023-05-10] MEDS: MAG SULF 1GM/100ML (MAG RUN) 1 GM in IV 1 EA IV SCH ×2 (08:10→09:21)
[2023-05-10] MEDS: ASPIRIN 81MG ENTERIC TABLET PO SCH (08:10)
[2023-05-10] MEDS: predniSONE 20 MG TAB PO SCH (08:11)
[2023-05-10] MEDS: CARVedilol 6.25 MG TAB PO SCH ×2 (08:11→20:56)
[2023-05-10] MEDS: MORPHINE 2 MG/ML 1ML VIAL IV PRN (09:38)
[2023-05-10] MEDS: MORPHINE 4 MG/ML 1ML VIAL IV PRN (13:44)
[2023-05-11] VITALS (7 sets, daily range): BP systolic 108–118; BP diastolic 58–77; TEMP 97.3–99.2; O2SAT 95–96
[2023-05-11] MEDS: guaiFENesin SYRUP 200MG 10ML UDC PO SCH ×4 (01:39→17:50)
[2023-05-11] MEDS: PIPERACILLIN/TAZOBACTAM SOD 3.375 GM in D5W MINI-BAG PLUS 50 ML IV SCH ×2 (01:39→06:59)
[2023-05-11] MEDS: INSULIN LISPRO (NovoLOG) PER UNIT SC SCH ×4 (01:40→18:34)
[2023-05-11] MEDS: IPRATROPIUM 0.5MG/ALBUTEROL 2.5MG INH SOL UD 3ML (DUONEB) NEB SCH ×5 (03:38→21:20)
[2023-05-11 06:03] LABS: BASO % 0.1 % (0.0-1.0); HEMATOCRIT 40.8 % (42.0-52.0); HEMOGLOBIN 13.7 g/dl (13.5-17.5); LYMPH # 0.6 10^3/uL (1.5-5.0); LYMPH % 3.9 % (24.0-44.0); MEAN CORPUSCULAR HGB CONC 33.6 g/dl (32.0-36.5); MEAN CORPUSCULAR VOLUME 95.3 fl (80.0-96.0); MONO % 13.5 % (2.0-8.0); NEUTROPHILS % 81.5 % (36.0-66.0); PLATELET COUNT, AUTOMATED 124 10^3/uL (150-450); RED BLOOD COUNT 4.28 10^6/uL (4.30-6.10); WHITE BLOOD COUNT 15.9 10^3/uL (4.0-10.0)
[2023-05-11 06:43] LABS: ALBUMIN 2.7 G/DL (3.2-5.2); ALKALINE PHOSPHATASE 86 U/L (46-116); ALT/SGPT 25 U/L (7.0-40); AST/SGOT < 8 U/L (<34); BILIRUBIN,TOTAL 1.5 MG/DL (0.3-1.2); BLOOD UREA NITROGEN 56 MG/DL (9-23); CALCIUM LEVEL 9.3 MG/DL (8.3-10.6); CARBON DIOXIDE LEVEL 27 MMOL/L (20-31); CHLORIDE LEVEL 99 MMOL/L (98-107); CREATININE FOR GFR 1.07 MG/DL (0.70-1.30); GLOMERULAR FILTRATION RATE > 60.0 (>35); GLUCOSE, FASTING 248 MG/DL (74-106); MAGNESIUM LEVEL 2.3 MG/DL (1.8-2.4); POTASSIUM SERUM 3.8 MMOL/L (3.5-5.1); SODIUM LEVEL 136 MMOL/L (136-145)
[2023-05-11 07:21] LABS: MONO # 2.2 10^3/uL (0.0-0.8)
[2023-05-11] MEDS: ASPIRIN 81MG ENTERIC TABLET PO SCH (09:55)
[2023-05-11] MEDS: predniSONE 20 MG TAB PO SCH (09:56)
[2023-05-11] MEDS: DOXYCYCLINE HYCLATE 100MG TABLET PO SCH (09:56)
[2023-05-11] MEDS: CARVedilol 6.25 MG TAB PO SCH ×2 (09:56→21:50)
[2023-05-11] MEDS: MOXIFLOXACIN 400 MG TAB PO SCH (12:35)
[2023-05-11] MEDS: APIXABAN 5 MG TAB (ELIQUIS) PO SCH ×2 (12:35→21:50)
[2023-05-11] MEDS: ACETYLCYSTEINE 10% 30ML VIAL INH SCH ×2 (12:47→21:21)
[2023-05-11 15:32] LABS: BLOOD UREA NITROGEN 55 MG/DL (9-23); CALCIUM LEVEL 9.6 MG/DL (8.3-10.6); CARBON DIOXIDE LEVEL 27 MMOL/L (20-31); CHLORIDE LEVEL 98 MMOL/L (98-107); GLOMERULAR FILTRATION RATE > 60.0 (>35); GLUCOSE, FASTING 286 MG/DL (74-106); POTASSIUM SERUM 4.1 MMOL/L (3.5-5.1); SODIUM LEVEL 130 MMOL/L (136-145)
[2023-05-11] MEDS: MORPHINE 2 MG/ML 1ML VIAL IV PRN (17:50)
[2023-05-11] MEDS ORDERED: LEVEMIR (INSULIN DETEMIR) 1 UNITS/0.01ML SC SCH (21:00)
[2023-05-12] VITALS: BP 125/59; TEMP 98; O2SAT 94
[2023-05-12] MEDS: IPRATROPIUM 0.5MG/ALBUTEROL 2.5MG INH SOL UD 3ML (DUONEB) NEB SCH ×3 (00:15→07:32)
[2023-05-12] MEDS: guaiFENesin SYRUP 200MG 10ML UDC PO SCH ×2 (01:24→06:54)
[2023-05-12] MEDS: INSULIN LISPRO (NovoLOG) PER UNIT SC SCH ×2 (01:25→06:54)
[2023-05-12 04:00] VITALS: BP 118/62; TEMP 97.8; O2SAT 92
[2023-05-12 05:52] LABS: BASO % 0.3 % (0.0-1.0); HEMOGLOBIN 12.6 g/dl (13.5-17.5); LYMPH # 0.8 10^3/uL (1.5-5.0); LYMPH % 6.2 % (24.0-44.0); MEAN CORPUSCULAR HEMOGLOBIN 31.5 pg (27.0-33.0); MEAN CORPUSCULAR HGB CONC 33.2 g/dl (32.0-36.5); MONO # 1.4 10^3/uL (0.0-0.8); MONO % 10.6 % (2.0-8.0); NEUTROPHILS # 10.3 10^3/uL (1.5-8.5); NEUTROPHILS % 80.7 % (36.0-66.0); PLATELET COUNT, AUTOMATED 149 10^3/uL (150-450); WHITE BLOOD COUNT 12.8 10^3/uL (4.0-10.0)
[2023-05-12 06:25] LABS: ALBUMIN 2.6 G/DL (3.2-5.2); ALKALINE PHOSPHATASE 77 U/L (46-116); ALT/SGPT 25 U/L (7.0-40); AST/SGOT 14 U/L (<34); BILIRUBIN,TOTAL 1.1 MG/DL (0.3-1.2); BLOOD UREA NITROGEN 54 MG/DL (9-23); CARBON DIOXIDE LEVEL 28 MMOL/L (20-31); CHLORIDE LEVEL 98 MMOL/L (98-107); CREATININE FOR GFR 0.77 MG/DL (0.70-1.30); GLOMERULAR FILTRATION RATE > 60.0 (>35); GLUCOSE, FASTING 183 MG/DL (74-106); MAGNESIUM LEVEL 2.4 MG/DL (1.8-2.4); POTASSIUM SERUM 3.9 MMOL/L (3.5-5.1); SODIUM LEVEL 134 MMOL/L (136-145); TOTAL PROTEIN 5.7 G/DL (5.7-8.2)
[2023-05-12] MEDS: MOXIFLOXACIN 400 MG TAB PO SCH (06:55)
[2023-05-12] MEDS: ACETYLCYSTEINE 10% 30ML VIAL INH SCH (07:33)
[2023-05-12 08:01] VITALS: BP 131/78; TEMP 97.4; O2SAT 98
[2023-05-12] MEDS ORDERED: TORSEMIDE 20 MG TAB PO SCH (09:00)
[2023-05-12] MEDS ORDERED: SPIRONOLACTONE 25 MG TAB PO SCH (09:00)
[2023-05-12] MEDS: ASPIRIN 81MG ENTERIC TABLET PO SCH (09:34)
[2023-05-12 09:35] VITALS: BP 113/70
[2023-05-12] MEDS: APIXABAN 5 MG TAB (ELIQUIS) PO SCH (09:35)
[2023-05-12] MEDS: CARVedilol 6.25 MG TAB PO SCH (09:35)
[2023-05-12] MEDS ORDERED: MOXI400T11 PO (09:59)
[2023-05-12] MEDS ORDERED: INSULIN LISPRO (NovoLOG) PER UNIT SC SCH ×2 (12:00→21:00)
[2023-05-12 16:09] LABS: BODY FLUID CULTURE Not indicated. (.); LEGIONELLA ANTIGEN URINE Negative (Negative); ORGANISM ID Not indicated. (.); SPECIMEN SOURCE Urine (.); URINE STREP PNEUMONIAE ANTIGEN Negative (Negative)
== END 2023-05-12 13:17 | disposition home or self-care (01) ==
LOC: M ED 04:40 → M PCU 10:40 → M ED INP 10:40 → ENRESERV 11:45 → M PCU 13:18
PROVIDERS: ADMIT Internal Medicine; ATTEND Internal Medicine
DX: K80.00 Calculus of gallbladder with acute cholecystitis without obstruction (principal); I50.23 Acute on chronic systolic (congestive) heart failure; I48.91 Unspecified atrial fibrillation; D75.829 Heparin-induced thrombocytopenia, unspecified; J45.901 Unspecified asthma with (acute) exacerbation; E83.42 Hypomagnesemia; I11.0 Hypertensive heart disease with heart failure; E11.9 Type 2 diabetes mellitus without complications; Z95.1 Presence of aortocoronary bypass graft; I25.10 Atherosclerotic heart disease of native coronary artery without angina pectoris; E78.5 Hyperlipidemia, unspecified; Z79.4 Long term (current) use of insulin; Z79.01 Long term (current) use of anticoagulants; Z88.0 Allergy status to penicillin; Z79.899 Other long term (current) drug therapy; Z79.82 Long term (current) use of aspirin; Z88.8 Allergy status to other drugs, medicaments and biological substances; Z66 Do not resuscitate; D69.6 Thrombocytopenia, unspecified

== ENCOUNTER 2023-06-23 08:12 | Observation (INO) | payer SELFPAY ==
[2023-06-23] VITALS (7 sets, daily range): BP systolic 109–148; BP diastolic 61–85; TEMP 97–97.9; O2SAT 93–97
[~2023-06-23] VITALS: Ht 182.9 cm; Wt 27.9 kg
[~2023-06-23 08:12] MED LIST changes: +ACET650T3 PO; +CARV6.25 PO; +METO1TAB32 PO; +MOXI400T11 PO; +ceFAZolin SOD 2 GM in IV 1 EA IV ONE
[2023-06-23] MEDS ORDERED: LR 1,000 ML IV SCH (09:25)
[2023-06-23] MEDS ORDERED: ETOMIDATE INJ 20MG/10ML VIAL As Ordered ONE (09:33)
[2023-06-23] MEDS ORDERED: fentaNYL 100 MCG/2 ML INJECTION As Ordered ONE ×2 (09:34→10:55)
[2023-06-23] MEDS ORDERED: ACETAMINOPHEN TAB 650MG DOSE (2X325MG) PO PRN (12:55)
[2023-06-23] MEDS ORDERED: IPRATROPIUM 0.5MG/ALBUTEROL 2.5MG INH SOL UD 3ML (DUONEB) NEB PRN (12:55)
[2023-06-23] MEDS ORDERED: oxyCODONE 5MG TAB PO PRN (13:00)
[2023-06-23] MEDS ORDERED: fentaNYL 100 MCG/2 ML INJECTION IV PRN (13:00)
[2023-06-23] MEDS ORDERED: HYDROMORPHONE HCL 0.5 MG/ 0.5 ML SYRINGE IV PRN (13:00)
[2023-06-23] MEDS ORDERED: MEPERIDINE 25 MG/ML 1ML VIAL IV PRN (13:00)
[2023-06-23] MEDS ORDERED: ONDANSETRON 4MG 2ML VIAL IV PRN (13:00)
[2023-06-23] MEDS: IPRATROPIUM 0.5MG/ALBUTEROL 2.5MG INH SOL UD 3ML (DUONEB) NEB SCH ×2 (14:00→19:38)
[2023-06-23] MEDS ORDERED: GLUCOSE 4GM CHEW TABLET PO PRN (14:25)
[2023-06-23] MEDS ORDERED: GLUCAGON INJ 1MG VIAL SC PRN (14:25)
[2023-06-23] MEDS ORDERED: DEXTROSE 50% 50ML SYRINGE IV PRN (14:25)
[2023-06-23] MEDS ORDERED: INSULIN LISPRO (NovoLOG) PER UNIT SC PRN (14:40)
[2023-06-23] MEDS: KETOROLAC 30 MG/ML 1ML VIAL IV SCH ×2 (14:45→19:42)
[2023-06-23] MEDS: NS 1,000 ML IV SCH (15:31)
[2023-06-23] MEDS ORDERED: HOME MED LIST COMPLETE! XX SCH (16:20)
[2023-06-23] MEDS: traMADol 50 MG TAB PO PRN (17:13)
[2023-06-23] MEDS: CIPROFLOXACIN 400 MG in IV 1 EA IV SCH (17:13)
[2023-06-23] MEDS: metroNIDAZOLE 500 MG in IV 1 EA IV SCH (18:11)
[2023-06-23] MEDS: INSULIN LISPRO (NovoLOG) PER UNIT SC SCH (18:12)
[2023-06-23] MEDS ORDERED: INSULIN LISPRO (NovoLOG) PER UNIT SC SCH (21:00)
[2023-06-23] MEDS ORDERED: METOPROLOL TART 25 MG TABLET PO SCH (21:00)
[2023-06-23] MEDS: ULTRACET TAB PO PRN (21:17)
[2023-06-24 00:20] VITALS: BP 134/65; TEMP 98.1; O2SAT 93
[2023-06-24] MEDS: IPRATROPIUM 0.5MG/ALBUTEROL 2.5MG INH SOL UD 3ML (DUONEB) NEB SCH (01:30)
[2023-06-24] MEDS: NS 1,000 ML IV SCH ×3 (02:01→12:55)
[2023-06-24] MEDS: metroNIDAZOLE 500 MG in IV 1 EA IV SCH ×2 (02:11→09:04)
[2023-06-24] MEDS: KETOROLAC 30 MG/ML 1ML VIAL IV SCH ×2 (02:11→09:03)
[2023-06-24 04:00] VITALS: BP 121/73; TEMP 97.5; O2SAT 93
[2023-06-24] MEDS: traMADol 50 MG TAB PO PRN (05:10)
[2023-06-24] MEDS: CIPROFLOXACIN 400 MG in IV 1 EA IV SCH (05:13)
[2023-06-24 06:01] LABS: HEMOGLOBIN 13.7 g/dl (13.5-17.5); MEAN CORPUSCULAR HEMOGLOBIN 32.2 pg (27.0-33.0); MEAN CORPUSCULAR HGB CONC 32.6 g/dl (32.0-36.5); MEAN CORPUSCULAR VOLUME 98.8 fl (80.0-96.0); PLATELET COUNT, AUTOMATED 171 10^3/uL (150-450); RED BLOOD COUNT 4.25 10^6/uL (4.30-6.10)
[2023-06-24 06:28] LABS: ALBUMIN 3.1 G/DL (3.2-5.2); ALKALINE PHOSPHATASE 77 U/L (46-116); ALT/SGPT 14 U/L (7.0-40); AST/SGOT 20 U/L (<34); BILIRUBIN,TOTAL 2.1 MG/DL (0.3-1.2); BLOOD UREA NITROGEN 22 MG/DL (9-23); CALCIUM LEVEL 8.7 MG/DL (8.3-10.6); CARBON DIOXIDE LEVEL 21 MMOL/L (20-31); CHLORIDE LEVEL 102 MMOL/L (98-107); CREATININE FOR GFR 0.75 MG/DL (0.70-1.30); GLOMERULAR FILTRATION RATE > 60.0 (>35); GLUCOSE, FASTING 271 MG/DL (74-106); POTASSIUM SERUM 5.6 MMOL/L (3.5-5.1); SODIUM LEVEL 133 MMOL/L (136-145); TOTAL PROTEIN 5.9 G/DL (5.7-8.2)
[2023-06-24] MEDS ORDERED: ASPIRIN 81MG ENTERIC TABLET PO SCH (09:00)
[2023-06-24] MEDS ORDERED: SPIRONOLACTONE 25 MG TAB PO SCH (09:00)
[2023-06-24] MEDS ORDERED: PANTOPRAZOLE 40MG TAB (PROTONIX) PO SCH (09:00)
[2023-06-24] MEDS ORDERED: TORSEMIDE 20 MG TAB PO SCH (09:00)
[2023-06-24] MEDS: INSULIN LISPRO (NovoLOG) PER UNIT SC SCH ×2 (09:03→12:00)
[2023-06-24 10:00] VITALS: BP 123/69; TEMP 97.5; O2SAT 92
[2023-06-24] MEDS ORDERED: CIPR-249 PO (11:22)
[2023-06-24] MEDS ORDERED: TRAM37.53 PO (11:38)
[2023-06-24] MEDS: ULTRACET TAB PO PRN (12:50)
== END 2023-06-24 13:15 | disposition home or self-care (01) ==
LOC: M SDC 08:12 → M ED INP 12:51 → M MSPAV 15:18
PROVIDERS: ADMIT Surgery; ATTEND Surgery
DX: K81.0 Acute cholecystitis (principal); K82.A1 Gangrene of gallbladder in cholecystitis; I25.10 Atherosclerotic heart disease of native coronary artery without angina pectoris; I11.9 Hypertensive heart disease without heart failure; I48.91 Unspecified atrial fibrillation; E11.9 Type 2 diabetes mellitus without complications; D64.9 Anemia, unspecified; Z79.51 Long term (current) use of inhaled steroids; I50.9 Heart failure, unspecified; J45.909 Unspecified asthma, uncomplicated; E78.5 Hyperlipidemia, unspecified; Z79.01 Long term (current) use of anticoagulants; Z79.82 Long term (current) use of aspirin; Z79.4 Long term (current) use of insulin; Z79.899 Other long term (current) drug therapy
CPT/HCPCS: 36415; 47562; 80053; 85027; 88302; 88304; 94640; 96365; 96366; 96367; 96375; 96376; C9290; J0665; J0690; J0744; J1815; J1836; J1885; J3010

== ENCOUNTER 2023-06-25 09:40 | Emergency (ER) | payer SELFPAY ==
[~2023-06-25] VITALS: Ht 182.9 cm; Wt 95.7 kg
[~2023-06-25 09:40] MED LIST changes: +CIPR-249 PO; +TRAM37.53 PO; -ceFAZolin SOD 2 GM in IV 1 EA IV ONE
[2023-06-25 12:59] LABS: HEMATOCRIT 42.8 % (42.0-52.0); MEAN CORPUSCULAR HEMOGLOBIN 32.1 pg (27.0-33.0); MEAN CORPUSCULAR HGB CONC 32.7 g/dl (32.0-36.5); MEAN CORPUSCULAR VOLUME 98.2 fl (80.0-96.0); PLATELET COUNT, AUTOMATED 170 10^3/uL (150-450); RED BLOOD COUNT 4.36 10^6/uL (4.30-6.10); WHITE BLOOD COUNT 11.6 10^3/uL (4.0-10.0)
[2023-06-25 13:30] LABS: BILIRUBIN,TOTAL 2.1 MG/DL (0.3-1.2); CALCIUM LEVEL 9.3 MG/DL (8.3-10.6); CREATININE FOR GFR 1.7 MG/DL (0.70-1.30); GLOMERULAR FILTRATION RATE 41.5 (>35); POTASSIUM SERUM 5.3 MMOL/L (3.5-5.1); TOTAL PROTEIN 6.2 G/DL (5.7-8.2)
[2023-06-25 13:34] LABS: ATYPICAL LYMPH 7 % (0-5); LYMPHOCYTES 1 % (16-44); MONOCYTES 10 % (0-5); NEUTROPHILS 81 % (28-66)
[2023-06-25 13:35] LABS: PLATELET ESTIMATE NORMAL (NORMAL)
[2023-06-25] MEDS ORDERED: NS 1,000 ML IV ONE (13:50)
[2023-06-25 16:26] VITALS: BP 141/63; TEMP 98.2; O2SAT 95
== END 2023-06-25 16:30 | disposition short-term general hospital (02) ==
LOC: M ED 09:40
DX: K91.81 Other intraoperative complications of digestive system (principal); N17.9 Acute kidney failure, unspecified; K91.5 Postcholecystectomy syndrome; E11.9 Type 2 diabetes mellitus without complications; I10 Essential (primary) hypertension; E78.5 Hyperlipidemia, unspecified; Z86.79 Personal history of other diseases of the circulatory system; Z79.4 Long term (current) use of insulin; Z88.1 Allergy status to other antibiotic agents; Z90.49 Acquired absence of other specified parts of digestive tract; Z79.82 Long term (current) use of aspirin; Z79.899 Other long term (current) drug therapy

== ENCOUNTER 2023-07-08 15:52 | Inpatient (IN) | payer SELFPAY ==
[~2023-07-08] VITALS: Ht 182.9 cm; Wt 87.1 kg
[2023-07-08 17:30] LABS: BASO # 0.1 10^3/uL (0.0-0.2); BASO % 1.7 % (0.0-1.0); EOS # 0.2 10^3/uL (0.0-0.5); EOS % 2.8 % (0.0-3.0); HEMATOCRIT 34.1 % (42.0-52.0); LYMPH # 1.3 10^3/uL (1.5-5.0); LYMPH % 18.1 % (24.0-44.0); MEAN CORPUSCULAR HEMOGLOBIN 31.3 pg (27.0-33.0); MEAN CORPUSCULAR HGB CONC 32.3 g/dl (32.0-36.5); MEAN CORPUSCULAR VOLUME 97.2 fl (80.0-96.0); MONO # 1.2 10^3/uL (0.0-0.8); MONO % 17.2 % (2.0-8.0); NEUTROPHILS # 4.1 10^3/uL (1.5-8.5); NEUTROPHILS % 58.9 % (36.0-66.0); PLATELET COUNT, AUTOMATED 401 10^3/uL (150-450); RED BLOOD COUNT 3.51 10^6/uL (4.30-6.10); WHITE BLOOD COUNT 6.9 10^3/uL (4.0-10.0)
[2023-07-08 17:45] LABS: ALKALINE PHOSPHATASE 79 U/L (46-116); ALT/SGPT 9 U/L (7.0-40); AST/SGOT 18 U/L (<34); BILIRUBIN,DIRECT 0.3 MG/DL (<0.4); BILIRUBIN,TOTAL 0.5 MG/DL (0.3-1.2); BLOOD UREA NITROGEN 27 MG/DL (9-23); CALCIUM LEVEL 9.2 MG/DL (8.3-10.6); CARBON DIOXIDE LEVEL 29 MMOL/L (20-31); CHLORIDE LEVEL 100 MMOL/L (98-107); CREATININE FOR GFR 0.95 MG/DL (0.70-1.30); GLOMERULAR FILTRATION RATE > 60.0 (>35); GLUCOSE, FASTING 64 MG/DL (74-106); POTASSIUM SERUM 4.5 MMOL/L (3.5-5.1); SODIUM LEVEL 136 MMOL/L (136-145); TOTAL PROTEIN 6.7 G/DL (5.7-8.2)
[2023-07-08 17:52] LABS: INR 1.27; PROTHROMBIN TIME 15.6 SECONDS (12.5-14.5)
[2023-07-08] MEDS ORDERED: NS 1,000 ML IV ONE (20:55)
[2023-07-08] MEDS ORDERED: ISOVUE-370 76% 100ML VIAL As Ordered ONE (21:03)
[2023-07-08 23:02] LABS: RSV AMPLIFICATION NEGATIVE (NEGATIVE)
[2023-07-08] MEDS ORDERED: MOM 30ML SUSPENSION UDC PO PRN (23:25)
[2023-07-08] MEDS ORDERED: NS 1,000 ML IV SCH (23:25)
[2023-07-08] MEDS ORDERED: MAALOX 30 ML SUSP *UDC PO PRN (23:25)
[2023-07-08] MEDS ORDERED: GLUCOSE 4GM CHEW TABLET PO PRN (23:25)
[2023-07-08] MEDS ORDERED: ACETAMINOPHEN TAB 650MG DOSE (2X325MG) PO PRN (23:25)
[2023-07-08] MEDS ORDERED: DEXTROSE 50% 50ML SYRINGE IV PRN (23:25)
[2023-07-08] MEDS ORDERED: GLUCAGON INJ 1MG VIAL SC PRN (23:25)
[2023-07-09] VITALS (8 sets, daily range): BP systolic 104–127; BP diastolic 53–68; TEMP 97.5–98.6; O2SAT 96–99
[2023-07-09] MEDS ORDERED: C 50TAB PO (01:29)
[2023-07-09] MEDS ORDERED: SPIR-10 PO (01:29)
[2023-07-09] MEDS ORDERED: ELIQ5TAB PO (01:29)
[2023-07-09] MEDS ORDERED: CIPR-249 PO (01:29)
[2023-07-09] MEDS ORDERED: ALBU2.5V10 INH (01:29)
[2023-07-09] MEDS ORDERED: MAGN400T2 PO (01:29)
[2023-07-09] MEDS ORDERED: HOME MED LIST COMPLETE! XX SCH (01:30)
[2023-07-09] MEDS ORDERED: ALBUTEROL SULFATE 2.5MG/0.5ML INH NEB SOLN INH PRN (02:25)
[2023-07-09] MEDS: PANTOPRAZOLE 40MG VIAL IV SCH ×2 (02:56→21:03)
[2023-07-09 03:19] LABS: HEMATOCRIT 27.2 % (42.0-52.0)
[2023-07-09 03:30] LABS: HEMOGLOBIN 8.9 g/dl (13.5-17.5)
[2023-07-09 05:55] LABS: BASO # 0.1 10^3/uL (0.0-0.2); EOS # 0.2 10^3/uL (0.0-0.5); EOS % 3.3 % (0.0-3.0); HEMATOCRIT 28.2 % (42.0-52.0); HEMOGLOBIN 9.2 g/dl (13.5-17.5); LYMPH # 1.2 10^3/uL (1.5-5.0); LYMPH % 22.1 % (24.0-44.0); MEAN CORPUSCULAR HEMOGLOBIN 31.5 pg (27.0-33.0); MEAN CORPUSCULAR HGB CONC 32.6 g/dl (32.0-36.5); MEAN CORPUSCULAR VOLUME 96.6 fl (80.0-96.0); MONO # 0.9 10^3/uL (0.0-0.8); MONO % 16.3 % (2.0-8.0); NEUTROPHILS # 3.1 10^3/uL (1.5-8.5); NEUTROPHILS % 55.2 % (36.0-66.0); PLATELET COUNT, AUTOMATED 307 10^3/uL (150-450); RED BLOOD COUNT 2.92 10^6/uL (4.30-6.10); WHITE BLOOD COUNT 5.5 10^3/uL (4.0-10.0)
[2023-07-09 06:18] LABS: BLOOD UREA NITROGEN 18 MG/DL (9-23); CALCIUM LEVEL 8.2 MG/DL (8.3-10.6); CARBON DIOXIDE LEVEL 25 MMOL/L (20-31); CHLORIDE LEVEL 103 MMOL/L (98-107); GLOMERULAR FILTRATION RATE > 60.0 (>35); GLUCOSE, FASTING 88 MG/DL (74-106); POTASSIUM SERUM 4.5 MMOL/L (3.5-5.1); SODIUM LEVEL 135 MMOL/L (136-145)
[2023-07-09] MEDS: INSULIN LISPRO (NovoLOG) PER UNIT SC SCH ×3 (07:30→17:19)
[2023-07-09] MEDS: ASCORBIC ACID 500 MG TAB PO SCH ×2 (08:56→21:03)
[2023-07-09] MEDS: TORSEMIDE 20 MG TAB PO SCH (09:00)
[2023-07-09] MEDS: SPIRONOLACTONE 25 MG TAB PO SCH (09:00)
[2023-07-09] MEDS: METOPROLOL SUCC *XL* 25MG TAB (TopROL *XL*) PO SCH (09:00)
[2023-07-09] MEDS: SUCRALFATE SUSP 1GM/10ML UD PO SCH ×3 (12:34→21:03)
[2023-07-09 18:26] LABS: HEMATOCRIT 31.6 % (42.0-52.0); HEMOGLOBIN 10.1 g/dl (13.5-17.5)
[2023-07-09] MEDS ORDERED: LEVEMIR (INSULIN DETEMIR) 1 UNITS/0.01ML SC SCH (21:00)
[2023-07-09] MEDS ORDERED: INSULIN LISPRO (NovoLOG) PER UNIT SC SCH (21:00)
[2023-07-10 01:53] VITALS: BP 106/58; TEMP 97.5; O2SAT 98
[2023-07-10 06:00] VITALS: BP 111/57; TEMP 98.1; O2SAT 97
[2023-07-10 06:05] LABS: BASO # 0.1 10^3/uL (0.0-0.2); BASO % 1.6 % (0.0-1.0); EOS # 0.2 10^3/uL (0.0-0.5); HEMATOCRIT 29.8 % (42.0-52.0); HEMOGLOBIN 9.6 g/dl (13.5-17.5); LYMPH % 19.6 % (24.0-44.0); MEAN CORPUSCULAR HEMOGLOBIN 31.3 pg (27.0-33.0); MEAN CORPUSCULAR HGB CONC 32.2 g/dl (32.0-36.5); MEAN CORPUSCULAR VOLUME 97.1 fl (80.0-96.0); MONO # 0.9 10^3/uL (0.0-0.8); MONO % 17.4 % (2.0-8.0); NEUTROPHILS # 2.9 10^3/uL (1.5-8.5); NEUTROPHILS % 56.8 % (36.0-66.0); PLATELET COUNT, AUTOMATED 314 10^3/uL (150-450); RED BLOOD COUNT 3.07 10^6/uL (4.30-6.10); WHITE BLOOD COUNT 5.1 10^3/uL (4.0-10.0)
[2023-07-10 06:21] LABS: BLOOD UREA NITROGEN 9 MG/DL (9-23); CALCIUM LEVEL 8.5 MG/DL (8.3-10.6); CARBON DIOXIDE LEVEL 26 MMOL/L (20-31); CHLORIDE LEVEL 106 MMOL/L (98-107); CREATININE FOR GFR 0.63 MG/DL (0.70-1.30); GLOMERULAR FILTRATION RATE > 60.0 (>35); GLUCOSE, FASTING 59 MG/DL (74-106); POTASSIUM SERUM 4.4 MMOL/L (3.5-5.1); SODIUM LEVEL 139 MMOL/L (136-145)
[2023-07-10] MEDS: INSULIN LISPRO (NovoLOG) PER UNIT SC SCH ×2 (07:30→12:00)
[2023-07-10] MEDS ORDERED: PROT1TAB2 PO (08:27)
[2023-07-10] MEDS ORDERED: SUCR1ORA PO (08:27)
[2023-07-10] MEDS: METOPROLOL SUCC *XL* 25MG TAB (TopROL *XL*) PO SCH (09:00)
[2023-07-10] MEDS: SPIRONOLACTONE 25 MG TAB PO SCH (09:00)
[2023-07-10] MEDS: TORSEMIDE 20 MG TAB PO SCH (09:00)
[2023-07-10] MEDS: PANTOPRAZOLE 40MG VIAL IV SCH (09:37)
[2023-07-10] MEDS: SUCRALFATE SUSP 1GM/10ML UD PO SCH (09:37)
[2023-07-10] MEDS: ASCORBIC ACID 500 MG TAB PO SCH (09:38)
[2023-07-10] MEDS ORDERED: INSU100I48 SQ (10:41)
== END 2023-07-10 14:07 | disposition home or self-care (01) | DRG 253 ==
LOC: M ED 15:52 → M ED INP 23:55 → M MSPAV 07-09 01:04
PROVIDERS: ADMIT Family Medicine; ATTEND General Practice
DX: K62.5 Hemorrhage of anus and rectum (principal); D62 Acute posthemorrhagic anemia; I11.0 Hypertensive heart disease with heart failure; I50.22 Chronic systolic (congestive) heart failure; I48.21 Permanent atrial fibrillation; E11.9 Type 2 diabetes mellitus without complications; I25.10 Atherosclerotic heart disease of native coronary artery without angina pectoris; Z79.4 Long term (current) use of insulin; J45.909 Unspecified asthma, uncomplicated; Z79.01 Long term (current) use of anticoagulants; Z95.2 Presence of prosthetic heart valve; E78.5 Hyperlipidemia, unspecified; Z88.0 Allergy status to penicillin; Z88.8 Allergy status to other drugs, medicaments and biological substances; Z79.82 Long term (current) use of aspirin; Z79.899 Other long term (current) drug therapy; Z98.41 Cataract extraction status, right eye; Z98.42 Cataract extraction status, left eye

== ENCOUNTER → 2023-07-12 | Outpatient (REF) | payer SELFPAY ==
[~2023-07-12] MED LIST changes: +ALBU2.5V10 INH; +C 50TAB PO; +INSU100I48 SQ; +MAGN400T2 PO; +PROT1TAB2 PO; +SPIR-10 PO; +SUCR1ORA PO
[2023-07-12 13:07] LABS: HEMATOCRIT 31.2 % (42.0-52.0); HEMOGLOBIN 9.9 g/dl (13.5-17.5); MEAN CORPUSCULAR HEMOGLOBIN 31.4 pg (27.0-33.0); MEAN CORPUSCULAR HGB CONC 31.7 g/dl (32.0-36.5); PLATELET COUNT, AUTOMATED 293 10^3/uL (150-450); RED BLOOD COUNT 3.15 10^6/uL (4.30-6.10)
== END ==
LOC: M LABDRWAD 12:04
PROVIDERS: ATTEND General Practice
DX: D64.9 Anemia, unspecified (principal); K92.2 Gastrointestinal hemorrhage, unspecified

== ENCOUNTER → 2023-07-13 | Outpatient (REF) | payer SELFPAY ==
[2023-07-13 13:23] LABS: HEMATOCRIT 31.6 % (42.0-52.0); HEMOGLOBIN 9.8 g/dl (13.5-17.5); MEAN CORPUSCULAR HEMOGLOBIN 31.1 pg (27.0-33.0); MEAN CORPUSCULAR VOLUME 100.3 fl (80.0-96.0); PLATELET COUNT, AUTOMATED 283 10^3/uL (150-450); RED BLOOD COUNT 3.15 10^6/uL (4.30-6.10); WHITE BLOOD COUNT 5.8 10^3/uL (4.0-10.0)
== END ==
LOC: M LABDRWAD 12:15
PROVIDERS: ATTEND General Practice
DX: K62.5 Hemorrhage of anus and rectum (principal)

== ENCOUNTER → 2023-07-15 | Outpatient (REF) | payer OTHER | LOC: M SFHCADAM 14:06 | PROVIDERS: ATTEND Physician Assistant | DX: Z53.9 Procedure and treatment not carried out, unspecified reason (principal); Z98.890 Other specified postprocedural states; I48.19 Other persistent atrial fibrillation ==

== ENCOUNTER 2023-09-09 06:00 | Day surgery (SDC) | payer SELFPAY ==
[~2023-09-09] VITALS: Ht 182.9 cm; Wt 89.4 kg
[~2023-09-09 06:00] MED LIST changes: +ELIQ2.5T PO; +INSULANT SC; +NS 1,000 ML IV ONE
[2023-09-09] MEDS ORDERED: LR 1,000 ML IV SCH ×2 (06:35→08:30)
[2023-09-09] MEDS ORDERED: ISOVUE-300 61% 100ML VIAL As Ordered ONE ×2 (07:02→07:15)
[2023-09-09] MEDS ORDERED: ROCURONIUM BROMIDE 50MG/5ML VIAL As Ordered ONE (07:11)
[2023-09-09] MEDS ORDERED: ONDANSETRON 4MG 2ML VIAL As Ordered ONE (07:11)
[2023-09-09] MEDS ORDERED: LIDOCAINE 2% 100MG/5ML SDV (FOR ANES.) As Ordered ONE (07:11)
[2023-09-09] MEDS ORDERED: SUGAMMADEX SODIUM 500 MG/5 ML VIAL (BRIDION) As Ordered ONE (07:11)
[2023-09-09] MEDS ORDERED: propofoL 200 MG/20 ML VIAL As Ordered ONE (07:11)
[2023-09-09] MEDS ORDERED: fentaNYL 100 MCG/2 ML INJECTION As Ordered ONE (07:14)
[2023-09-09] MEDS ORDERED: ACETAMINOPHEN 1000MG 100ML IV BAG As Ordered ONE (07:43)
[2023-09-09] MEDS ORDERED: fentaNYL 100 MCG/2 ML INJECTION IV PRN (08:30)
[2023-09-09] MEDS ORDERED: HYDROMORPHONE HCL 0.5 MG/ 0.5 ML SYRINGE IV PRN (08:30)
[2023-09-09] MEDS ORDERED: ONDANSETRON 4MG 2ML VIAL IV PRN (08:30)
[2023-09-09] MEDS ORDERED: oxyCODONE 5MG TAB PO PRN (08:30)
[2023-09-09 09:15] VITALS: BP 126/65; TEMP 98; O2SAT 94
== END 2023-09-09 09:34 | disposition home or self-care (01) ==
LOC: M SDC 06:00
PROVIDERS: ATTEND Internal Medicine Gastroenterology
DX: K80.50 Calculus of bile duct without cholangitis or cholecystitis without obstruction (principal); K83.8 Other specified diseases of biliary tract; I48.91 Unspecified atrial fibrillation; E11.9 Type 2 diabetes mellitus without complications; I10 Essential (primary) hypertension; Z90.49 Acquired absence of other specified parts of digestive tract; Z79.899 Other long term (current) drug therapy; Z79.82 Long term (current) use of aspirin; Z79.01 Long term (current) use of anticoagulants; Z79.4 Long term (current) use of insulin; Z95.5 Presence of coronary angioplasty implant and graft; Z88.0 Allergy status to penicillin; Z88.8 Allergy status to other drugs, medicaments and biological substances
CPT/HCPCS: 43264; 43275; 76000; C1769; C1889; J0131; J2405; J3010; Q9967

== ENCOUNTER → 2024-02-02 | Outpatient (REF) | payer OTHER ==
[~2024-02-02] MED LIST changes: -NS 1,000 ML IV ONE
[2024-02-02 14:28] LABS: BASO # 0.1 10^3/uL (0.0-0.2); BASO % 1.2 % (0.0-1.0); EOS # 0.4 10^3/uL (0.0-0.5); EOS % 9.3 % (0.0-3.0); HEMATOCRIT 44.7 % (42.0-52.0); HEMOGLOBIN 14.4 g/dl (13.5-17.5); LYMPH # 1.1 10^3/uL (1.5-5.0); LYMPH % 26.3 % (24.0-44.0); MEAN CORPUSCULAR HEMOGLOBIN 31.9 pg (27.0-33.0); MEAN CORPUSCULAR HGB CONC 32.2 g/dl (32.0-36.5); MEAN CORPUSCULAR VOLUME 99.1 fl (80.0-96.0); MONO # 0.6 10^3/uL (0.0-0.8); MONO % 15.3 % (2.0-8.0); NEUTROPHILS % 47.7 % (36.0-66.0); PLATELET COUNT, AUTOMATED 143 10^3/uL (150-450); RED BLOOD COUNT 4.51 10^6/uL (4.30-6.10); WHITE BLOOD COUNT 4.2 10^3/uL (4.0-10.0)
[2024-02-02 15:37] LABS: ALBUMIN 3.7 G/DL (3.2-5.2); ALKALINE PHOSPHATASE 79 U/L (46-116); ALT/SGPT 12 U/L (7.0-40); AST/SGOT 19 U/L (<34); BILIRUBIN,TOTAL 0.6 MG/DL (0.3-1.2); BLOOD UREA NITROGEN 23 MG/DL (9-23); CALCIUM LEVEL 9.1 MG/DL (8.3-10.6); CARBON DIOXIDE LEVEL 29 MMOL/L (20-31); CHLORIDE LEVEL 103 MMOL/L (98-107); CREATININE FOR GFR 0.94 MG/DL (0.70-1.30); GLOMERULAR FILTRATION RATE > 60.0 (>35); GLUCOSE, FASTING 114 MG/DL (74-106); POTASSIUM SERUM 4.5 MMOL/L (3.5-5.1); SODIUM LEVEL 138 MMOL/L (136-145); TOTAL PROTEIN 6.6 G/DL (5.7-8.2)
== END ==
LOC: M LABDRWAD 12:53
PROVIDERS: ATTEND Internal Medicine Cardiovascular Disease
DX: I50.22 Chronic systolic (congestive) heart failure (principal); I48.21 Permanent atrial fibrillation; I49.3 Ventricular premature depolarization; I27.81 Cor pulmonale (chronic); I11.0 Hypertensive heart disease with heart failure

== ENCOUNTER → 2024-02-02 | Outpatient (REF) | payer OTHER ==
[2024-02-02 14:32] LABS: HEMATOCRIT 44.9 % (42.0-52.0); HEMOGLOBIN 14.3 g/dl (13.5-17.5); MEAN CORPUSCULAR HEMOGLOBIN 31.6 pg (27.0-33.0); MEAN CORPUSCULAR HGB CONC 31.8 g/dl (32.0-36.5); MEAN CORPUSCULAR VOLUME 99.3 fl (80.0-96.0); PLATELET COUNT, AUTOMATED 149 10^3/uL (150-450); RED BLOOD COUNT 4.52 10^6/uL (4.30-6.10); WHITE BLOOD COUNT 4.3 10^3/uL (4.0-10.0)
[2024-02-02 14:59] LABS: BLOOD UREA NITROGEN 24 MG/DL (9-23); CALCIUM LEVEL 9.2 MG/DL (8.3-10.6); CARBON DIOXIDE LEVEL 30 MMOL/L (20-31); CHLORIDE LEVEL 102 MMOL/L (98-107); CREATININE FOR GFR 0.93 MG/DL (0.70-1.30); GLOMERULAR FILTRATION RATE > 60.0 (>35); GLUCOSE, FASTING 121 MG/DL (74-106); POTASSIUM SERUM 4.4 MMOL/L (3.5-5.1); SODIUM LEVEL 136 MMOL/L (136-145)
== END ==
LOC: M SFHCADAM 08:49
PROVIDERS: ATTEND Physician Assistant
DX: E11.59 Type 2 diabetes mellitus with other circulatory complications (principal); Z87.19 Personal history of other diseases of the digestive system; I50.20 Unspecified systolic (congestive) heart failure; I48.19 Other persistent atrial fibrillation

== ENCOUNTER → 2024-05-25 | Outpatient (REF) | payer SELFPAY ==
[~2024-05-25] MED LIST changes: +DOXY-440 PO; -DOXY-444 PO; +TRAM-443 PO; -TRAM37.53 PO
[2024-05-25 19:15] LABS: HEMOGLOBIN A1c 7.2 % (4.0-6.0)
== END ==
LOC: M SFHCADAM 13:08
PROVIDERS: ATTEND Physician Assistant
DX: E11.59 Type 2 diabetes mellitus with other circulatory complications (principal)

== ENCOUNTER → 2024-05-30 | Outpatient (REF) | payer SELFPAY ==
[2024-05-30 12:55] LABS: BLOOD UREA NITROGEN 25 MG/DL (9-23); CALCIUM LEVEL 9.2 MG/DL (8.3-10.6); CARBON DIOXIDE LEVEL 28 MMOL/L (20-31); CHLORIDE LEVEL 102 MMOL/L (98-107); CREATININE FOR GFR 0.83 MG/DL (0.70-1.30); GLOMERULAR FILTRATION RATE > 60.0 (>35); GLUCOSE, FASTING 194 MG/DL (74-106); POTASSIUM SERUM 4.6 MMOL/L (3.5-5.1); SODIUM LEVEL 136 MMOL/L (136-145)
== END ==
LOC: M SFHCADAM 09:40
PROVIDERS: ATTEND Physician Assistant
DX: E11.59 Type 2 diabetes mellitus with other circulatory complications (principal); Z79.4 Long term (current) use of insulin; I48.21 Permanent atrial fibrillation; I11.0 Hypertensive heart disease with heart failure; I50.20 Unspecified systolic (congestive) heart failure

== ENCOUNTER → 2024-06-01 | Outpatient (REF) | payer SELFPAY | LOC: M SFHCADAM 17:48 | PROVIDERS: ATTEND Physician Assistant | DX: E11.59 Type 2 diabetes mellitus with other circulatory complications (principal); Z79.4 Long term (current) use of insulin; I48.21 Permanent atrial fibrillation; I11.0 Hypertensive heart disease with heart failure; I50.20 Unspecified systolic (congestive) heart failure ==